=== PATIENT | male | born 1940 | race Caucasian/White ===

== ENCOUNTER 2024-01-02 12:14 | Inpatient (IN) | payer MEDICARE, BC, SELFPAY ==
[2024-01-01 20:12] VITALS: BP 147/78
[2024-01-01 20:14] VITALS: BP 147/78
[2024-01-01 20:16] VITALS: BMI 26.7
[2024-01-01 20:54] LABS: COVID-19 Antigen Positive (Negative)
--- NOTE | 2024-01-01 21:14 | ED.GENMED ---
History of Present Illness
General
Chief Complaint: Change Level of Consciousness
Source: patient
Exam Limitations: none
Time Seen by Provider: 01/01/24 20:12
Nursing documentation reviewed up to this point in time: agreed with
Travel History
Have you had any contact with someone who has COVID-19?: No
Do you have any symptoms of coronavirus? Fever > 100 degrees, chills, cough, shortness of breath, sore throat, loss of taste or smell, muscle aches, or headache?: Yes
Symptoms:: fever
History of Present Illness
History of Present Illness:
83-year-old male with past medical history as documented notable for dementia presents with his family for evaluation of generalized weakness. It sounds like he was in his normal state of health even this morning, as the day went on family noticed
increasing weakness and shakiness. Tonight they tried to stand him up and he was not strong enough to support himself with his legs�could not take more than 1 step on his own before requiring significant support. This is quite atypical, normally
he is able to ambulate quite well with walker. He was brought to the emergency room by EMS for evaluation. Patient is very limited as a historian due to his dementia�when asked why he is here he says 'I am not sure.' When asked if he has any
complaints he says 'I feel okay.' His family says they have not noticed any coughing or respiratory issues, vomiting or diarrhea, fevers or any other issues at home. He was however noted to have a low-grade fever here.
Past History
Past History
ED Past Medical History: CAD, HTN, Hypercholesterolemia and Other (Bowel obstruction, Sensory Tremors)
ED Past Surgical History: Appendectomy and Cardiac (Cardiac stents)
Social History
Tobacco: Former smoker
Alcohol: None
Drug: None
Personal:
Living: with family
Employment: Employed
Review of Systems
Review of Systems
Unable to obtain full review of systems at this time due to: dementia
All Other Systems: Not applicable
Phy Exam
Physical Exam
Physical Exam:
General: Awake, alert, hard of hearing
Head: Normocephalic, atraumatic
Eyes: Conjunctiva normal, pupils equal round and reactive to light bilaterally
Throat: Airway intact, slightly dry mucous membranes
Neck: Trachea midline, supple without meningismus
Lungs: Clear to auscultation bilaterally, no wheezing, rales, rhonchi
Heart: Regular rate and rhythm, no murmurs, gallops, or rubs appreciated
Abd: Soft, non distended, nontender
Neuro: Cranial nerves grossly intact, speech fluid; generally weak but no focal weakness or numbness on exam
Skin: no rash
Extremities: No edema in extremities, equal pulses in all extremities
Scores
Heart Failure Risk
Heart Failure Risk Score: Not Applicable
Heart Score for Chest Pain Patients
STEMI patient?: Not applicable
Withdrawal Assessment of Alcohol
Withdrawal Assessment Completed?: Not applicable
Course
Orders/Labs/Results
Orders:
Orders
01/01/24 20:10
Electrocardiogram (*1) Urgent
Reason for Study: Other
Other Reason for Exam: Possible Sepsis
Urinalysis Reflex To Culture Urgent
Date Specimen was Collected: 01/01/24
Time Specimen was Collected: 20:11
O2 Therapy [RESP] Urgent
Titrate/Wean O2 to maintain O2 sat greater than (%): 93
Special Instructions: TO MAINTAIN CONTINUOUS O2 SATS > OR = 93%
Pulse Ox/cont/shift [RESP] Urgent
Quantity: 1
Special Instructions: CONTINUOUS
01/01/24 20:11
EKG- Treatment ONCE
01/01/24 20:38
COVID-19 Antigen Urgent
Source: Nasal Swab
Influenza A+B Rapid Molecular Urgent
VIBHA Source: Nasal Swab
Specimen Description:
01/01/24 20:58
Acetaminophen [Tylenol] 1,000 mg PO NOW STA
01/01/24 21:21
Case Management Consult ONCE
Case Management Consult: Discharge Planning
Pt Eval And Treat Urgent
Activity Level: With Assistance
01/01/24 21:28
Complete Blood Count/With Diff Urgent
Comprehensive Metabolic Panel Urgent
Lactic Acid Q4H
Comment: ON ICE, CANCEL 2ND ORDER IF FIRST LACTIC ACID LEVEL <2
Blood Culture Q30M
VIBHA Source: Blood/Venous
Specimen Description:
Comment: FROM 2 SEPARATE SITES
Blood Culture Q30M
VIBHA Source: Blood/Venous
Specimen Description:
Comment: FROM 2 SEPARATE SITES
01/01/24 22:54
CR Chest - 2 Views Urgent
Comment:
Reason For Exam: weakness, COVID+
Abnormal Lab Results
01/01/24 01/01/24
20:38 21:28
MCH 32.2 H pg
(27.0-31.0)
Absolute Lymphs (auto) 0.5 L 10^3/uL
(1.2-3.4)
Absolute Monos (auto) 0.9 H 10^3/uL
(0.1-0.6)
Neutrophils % 80.1 H %
(42.2-75.2)
Lymphocytes % 6.0 L %
(20.5-51.1)
Monocytes % 11.8 H %
(1.7-9.3)
BUN 22 H mg/dl
(9-20)
Glucose 110 H mg/dl
(70-99)
SARS-CoV-2 Antigen Positive A
(Negative)
01/01/24 21:28
01/01/24 21:28
Vital Signs
Initial and Last Documented VS:
Initial Vital Signs
Temp Pulse Resp BP Pulse Ox
38.6 C H 93 18 147/78 96
01/01/24 20:12 01/01/24 20:12 01/01/24 20:12 01/01/24 20:12 01/01/24 20:12
Last Documented Vital Signs
Temp Pulse Resp BP Pulse Ox
36.9 C 93 20 131/71 92
01/01/24 22:31 01/01/24 22:30 01/01/24 22:30 01/01/24 22:00 01/01/24 22:30
MDM/Problems Addressed
Differential Diagnosis Includes:
Concerned with his fever and generalized weakness would be for infection�differential includes UTI, pneumonia, viral syndrome
MDM/Problems Addressed:
83-year-old male presents for generalized weakness and shakiness today; found to have a low-grade fever here. Vital signs otherwise normal. Exam as above. Plan to place an IV check labs including a CBC and a CMP, urinalysis; send blood cultures.
Will check viral swabs. Check a chest x-ray. Check an EKG. Treat fever. Monitor closely reassess after the above.
Patient's COVID swab came back positive which certainly could account for his symptoms. Awaiting rest of workup. While from a respiratory perspective patient appears generally well, he may require admission from a functional standpoint�he lives at
home alone with his who ambulates only with a cane and is not able to support him to help him get around.
Labs reviewed: CBC unremarkable, CMP no significant abnormalities. Family very concerned about his functional status at this point will admit for hopefully placement in short-term rehab/SNF while dealing with his acute functional decline in the
setting of COVID. Consult sent for physical therapy and case management. Discussed with hospitalist for admission.
Chronic conditions affecting care:
Dementia
*Radiology
Radiology exam reviewed: preliminary read by ED provider and radiology read reviewed
*Pulse Oximetry
Patient hypoxic: no
*EKG
Interpreted by ED Provider?: Yes
Heart Rate: 87
Rate: normal
Rhythm: sinus
[place]: normal axis
Interval: normal interval
QRS Pattern: normal QRS
Ischemia: no ischemia
*Critical Care Note
Total Time (30-74mins, 75-104mins- exclusive of procedures): Not Applicable
Data Reviewed
Source: patient and family
Patient Management
Social determinants of health affecting care: Living situation
Discussion with other providers: Hospitalist (Discussed with hospitalist)
Escalation/DeEscalation of care consider admission/obs:
Admission indicated
ED Attending Note
-
Portions of this chart may have been created with voice recognition software.� Occasional wrong word or��sound alike� substitutions may have occurred due to the inherent limitations of voice recognition software.
Discharge Plan
Departure
Patient Disposition: Admit
Date of Disposition: 01/01/24
Time of Disposition: 23:11
Admit to doctor: Bert
Presentation/result/management discussed w/ accepting MD/DO: Hospitalist
Discharge Problem:
COVID-19
Prescriptions:
No Action
aspirin 81 MG tablet,delayed release (DR/EC)
81 mg PO HS
atorvastatin 40 MG tablet
40 mg PO HS
ascorbic acid (vitamin C) [Vitamin C] 1,000 MG tablet
1,000 mg PO BID
memantine 10 MG tablet
10 mg PO BID
cholecalciferol (vitamin D3) 2,000 UNITS tablet
2,000 units PO DAILY
pantoprazole 40 MG tablet,delayed release (DR/EC)
40 mg PO BID 28 Days Qty: 56 0RF
Rx Instructions:
take twice a day for 4 weeks, then once a day
multivitamin Tablet
1 tab PO DAILY
zinc acetate 50 mg (zinc) Capsule
50 mg PO DAILY
acetaminophen [Tylenol] 325 mg Tablet
650 mg PO Q6H PRN (Reason: fever, mild pain)
donepezil 10 mg Tablet
10 mg PO DAILY
Referrals:
Johny Fernandez MD [Family Provider] -
Interventions
Interventions:
*Risk Screen - Suicide Last Done: 01/01/24 20:12
*General Assessment Last Done: 01/01/24 20:12
*Neglect/Abuse Screening Last Done: 01/01/24 20:12
ED- Fall Risk Assessment Last Done: 01/01/24 20:39
*ED COVID-19 Vaccine History Last Done: 01/01/24 20:12
ED- Cardiac Assessment Last Done: 01/01/24 20:39
ED- Neurological Assessment Last Done: 01/01/24 20:39
ED-Psychological Assessment Last Done: 01/01/24 20:41
ED- Pulmonary Assessment Last Done: 01/01/24 20:39
[2024-01-01] MEDS: TYLENOL 1000 MG PO (21:23)
[2024-01-01 21:29] VITALS: BP 142/66
[2024-01-01 21:43] LABS: % Basophils 0.9 % (0-2); % Eosinophils 0.8 % (0-6); % Immature Granulocytes 0.4 % (0-0.5); % Monocytes 11.8 % (1.7-9.3); % Neutrophils 80.1 % (42.2-75.2); Absolute Basophils 0.1 10^3/uL (0-0.2); Absolute Eosinophils 0.1 10^3/uL (0-0.7); Absolute Lymphocytes 0.5 10^3/uL (1.2-3.4); Absolute Monocytes 0.9 10^3/uL (0.1-0.6); Absolute Neutrophils 6.4 10^3/uL (1.4-6.5); Hematocrit 45.8 % (39.0-52.0); Hemoglobin 15.7 g/dL (13.0-18.0); Mean Corp Hgb Conc. 34.3 g/dL (33.0-37.0); Mean Corpuscular Hgb 32.2 pg (27.0-31.0); Mean Corpuscular Volume 93.9 fL (80.0-94.0); Mean Platelet Volume 9.3 fL (7.4-10.4); Nucleated Red Blood Cells % 0 % (-); Platelet Count 166 10^3/uL (130-400); Red Blood Cell Count 4.88 10^6/uL (4.70-6.10); Red Cell Dist. Width 13.9 % (11.5-14.5)
[2024-01-01 21:56] LABS: Lactic Acid 1.2 mmol/L (0.7-2.0)
[2024-01-01 21:59] LABS: ALT (SGPT) 31 U/L (0-50); AST (SGOT) 29 U/L (17-59); Albumin 4.3 g/dl (3.5-5.0); Alkaline Phosphatase 90 U/L (38-126); Blood Urea Nitrogen 22 mg/dl (9-20); Calcium 9.3 mg/dl (8.4-10.2); Carbon Dioxide 28 mmol/L (22-30); Chloride 104 mmol/L (98-107); Estimated Creatinine Clearance 52 ml/min; Glucose 110 mg/dl (70-99); Sodium 136 mmol/L (135-145); Total Bilirubin 0.8 mg/dl (0.2-1.3); Total Protein 7.3 g/dl (6.3-8.2); eGFR 59.26
[2024-01-01 22:00] VITALS: BP 131/71
[2024-01-01 22:06] LABS: Potassium 4.8 mmol/L (3.5-5.1)
[2024-01-01 23:00] VITALS: BP 117/65
--- NOTE | 2024-01-01 23:23 | HPS.HSE ---
Family Physician
-
Family Physician: Johny Fernandez
Chief Complaint
-
weakness
History of Present Illness
83M [facility] with HX dementia, CAD, HTN seen art ER evaluation of generalized weakness. Family noticed increasing weakness and shakiness. Tonight he was not strong enough to support himself with his legs�could not take more than 1 step on his own
before requiring significant support. Normally he is able to ambulate quite well with walker.
Patient is very limited as a historian due to his dementia
family deneied coughing or respiratory issues, vomiting or diarrhea, fevers or any other issues at home.
low-grade fever at ER
Medical History
Past Medical History
Past Medical History: Reports Other (CAD, HTN, Hypercholesterolemia and Other (Bowel obstruction, Sensory Tremors))
Past Surgical History: Reports Other (Appendectomy and Cardiac (Cardiac stents))
Social History
Tobacco: Former Smoker
Alcohol: None
Personal:
Living: With Family
Family History
Family History: Not pertinent
Allergies / Home Medications
Allergies reflects when Allergies were last updated in [facility].
Home Medications with original date entered in [facility]
Allergy/Medication List:
Allergies
Allergy/AdvReac Type Severity Reaction Status Date / Time
venom-honey bee Allergy Swelling Verified 01/01/24 20:17
[bee venom (honey bee)]
Home Medications
aspirin 81 mg tablet,delayed release 81 mg PO HS Blood clot prevention/tx 08/05/14
ascorbic acid (vitamin C) 1,000 mg tablet (Vitamin C) 1,000 mg PO BID Supplement 05/15/22
atorvastatin 40 mg tablet 40 mg PO HS High cholesterol 05/15/22
cholecalciferol (vitamin D3) 50 mcg (2,000 unit) tablet 2,000 units PO DAILY Supplement 05/15/22
memantine 10 mg tablet 10 mg PO BID dementia 05/15/22
pantoprazole 40 mg tablet,delayed release 40 mg PO BID 28 days #56 tabs 05/19/22
multivitamin 1 tab PO DAILY Supplement 01/27/23
zinc acetate 50 mg (zinc) capsule 50 mg PO DAILY Supplement 01/27/23
acetaminophen 325 mg tablet (Tylenol) 650 mg PO Q6H PRN fever, mild pain 01/01/24
donepezil 10 mg tablet 10 mg PO DAILY 01/01/24
Review of Systems
-
EENT: Reports No Symptoms
Respiratory: Reports No Symptoms
Cardiac: Reports No Symptoms
Abdomen/GI: Reports No Symptoms
: Reports No Symptoms
Musculoskeletal: Reports No Symptoms
Skin: Reports No Symptoms
Neurological: Reports Weakness
Endocrine: Reports No Symptoms
Hematologic/Lymphatic: Reports No Symptoms
Psych: Reports No Symptoms
Physical Exam
Vital Signs
Vital Signs
Temp Pulse Resp BP Pulse Ox
98.5 F 93 20 131/71 92
01/01/24 22:31 01/01/24 22:30 01/01/24 22:30 01/01/24 22:00 01/01/24 22:30
Physical Exam
General: Other (see below )
Laboratory Results
-
01/01/24 21:28
01/01/24 21:28
Laboratory Results
Lactic Acid 1.2 mmol/L (0.7-2.0) 01/01/24 21:28
Total Bilirubin 0.8 mg/dl (0.2-1.3) 01/01/24 21:28
AST 29 U/L (17-59) 01/01/24 21:28
ALT 31 U/L (0-50) 01/01/24 21:28
Alkaline Phosphatase 90 U/L (38-126) 01/01/24 21:28
Data Reviewed
-
Lab Data: Labs Reviewed by me
Old Records: Reviewed
Impression/Plan
-
Reviewed VS: note POX as low as 91 on RA
PE
Gen: Alert , no toxic looking
HEENT: very [place]
Neck: supple
Lungs: Clear to auscultation bilaterally, no wheezing
Cor: RRR S1 S2
Abdomen: soft beningn exam
CRYSTALIZER: generally weak but no focal weakness or numbness
MS: no edema
Psych: limited due to dementia
Data
nl CBC
BUN 22
Cr 1.2 - baseline Cr < 1
eGFR 59
Pending UA
POS Covid Ag
Pending CXR
EKG report
NORMAL SINUS RHYTHM
POSSIBLE INFERIOR INFARCT , AGE UNDETERMINED
ABNORMAL ECG
WHEN COMPARED WITH ECG OF 27-JAN-2023 21:49,
NO SIGNIFICANT CHANGE WAS FOUND
Last Hospitalist admission 01/28/23-
DISCHARGE DIAGNOSIS:
1. Fever, suspected from acute sinusitis.
2. Coronary artery disease.
3. Hyperlipidemia.
4. Hypertension.
5. Dementia.
6. Gastroesophageal reflux disease.
ASSESSMENT & PLAN
Acute virla Covid infection - unclear consent
Associated with acute gait dysfunction due to severe weakness and debility
marginal hypoxia - Pending CXR
- O2 NC to keep POx > 94
- Paxolovid
- IV Decadron 6mg daily
- PT/OT
- supportive care
Mild PRANAV
- IV NS@ 40?H for just 1 L
- Trend Cr in AM
HLD
- Held Atorvastatin while on Paxlovid
- ASA
Dementia
- cont. Memantine and Donepezil
DVT Px: LMWH
Code: Full code
OBS MS
[2024-01-02] VITALS: BP 126/65
[2024-01-02 00:50] VITALS: BP 128/67; BMI 25.6
[2024-01-02] MEDS: PAXLOVID 2X150 MG-100 MG DOSE PACK 1 DOSE PO ×3 (01:37→21:51)
[2024-01-02] MEDS: NSS 1000 IV (01:37)
[2024-01-02 07:35] VITALS: BP 177/98
[2024-01-02] MEDS: PROTONIX 40 MG PO ×2 (10:04→20:20)
[2024-01-02] MEDS: MUCINEX 600 MG PO ×2 (10:04→20:20)
[2024-01-02] MEDS: NAMENDA 10 MG PO ×2 (10:05→20:20)
[2024-01-02] MEDS: ARICEPT 10 MG PO (10:05)
[2024-01-02] MEDS: DECADRON 6 MG IV (10:05)
[2024-01-02] MEDS: FLUSH (NSS) 2 FLUSH IV (10:07)
--- NOTE | 2024-01-02 10:21 | W.PN.HOSP.TC ---
Today's Communication/Plan
-
cont PT/OT
finish Paxlovid
cont decadron
Assessment / Plan
Assessment / Plan
pt is an 83 year old male
Acute viral Covid infection - unclear onset--Associated with acute gait dysfunction�due to severe weakness�and debility--not requiring O2 (93-94% on room air)--finish paxlovid--cont IV decadron--PT/OT
Mild PRANAV--stop IVF--no labs ordered for this AM--follow in AM
HLD-- Held Atorvastatin while on Paxlovid--cont ASA
Dementia- cont. Memantine and Donepezil
code status -- FULL Code
DVT proph
Anticipated Discharge: 24 - 48 hours
Subjective/Interval History
-
Date of Service: January 02, 2024
pt denies c/o
Objective Data
-
Vital Signs:
max temp for 24 hours
01/01/24
20:12
Temp 101.5 F H
Vital Signs
Temp Pulse Resp BP Pulse Ox
100.7 F H 92 18 177/98 93
01/02/24 07:35 01/02/24 07:35 01/02/24 07:35 01/02/24 07:35 01/02/24 07:35
I&O
01/01/24 01/02/24 01/03/24
06:59 06:59 06:59
Output Total 225 / 225
Balance -225 / -225
Review of Systems
-
Unable to obtain full review of systems at this time due to: Dementia
All other systems: Reviewed and negative
Physical Exam
-
General: Well Developed, Well Nourished and No Apparent Distress
HEENT: Normocephalic and Atraumatic; Negative Oxygen
Respiratory: Rhonchi (anterior right chest)
Cardiac: Regular Rhythm and S1/S2; Negative Murmur
GI: Soft, Nontender, Nondistended and Normal Bowel Sounds
Musculoskeletal: No Clubbing, No Cyanosis and No Edema
Skin: Warm
Neuro: Awake
[2024-01-02 14:20] VITALS: BP 125/88; BP 125/90; PULSE 90; O2SAT 93
--- NOTE | 2024-01-02 15:05 | CM ---
customer development manager reviewed patient's chart and spoke with patient's spouse by phone, patient is currently requiring isolation. Patient has switched to inpatient, IMM discussed with patient's spouse at 2:30pm and placed on chart. Per patient's spouse,
patient lives in a one story home with one step to enter, patient was independent with adl's and used a walker with ambulation. Per spouse patient was not very active at home, watched TV most of the time. customer development manager informed patient's spouse that
she would wait on PT/OT evaluations for final discharge plan. Per spouse she is for possible spinal surgery in a week and patient needs to be able to get around at home.
Pharmacy: [facility]
PCP: Dr. Hayder Fernandez
Plan; Home with visiting nurses v's skilled placement at [facility], referral sent to [facility].
[2024-01-02 15:26] VITALS: BP 118/60
[2024-01-02] MEDS: LOVENOX 40 MG SC (20:20)
[2024-01-02] MEDS: ASPIR LOW (ENTERIC COATED) 81 MG PO (21:51)
[2024-01-02 23:45] VITALS: BP 136/75
[2024-01-03] MEDS: ROBITUSSIN DM 5 ML PO ×2 (00:05→09:02)
--- NOTE | 2024-01-03 01:11 | PTCARENOTE ---
Pt on the call mckeon, states he pulled out his IV because 'it was bothering him and pinching' and reports he needs a new one. Pt ordered medsurg, not receiving IVF or ordered any IV medications currently, d/w covering GM, pt okay to go without IV
access for now.
[2024-01-03 06:33] LABS: Hematocrit 41.8 % (39.0-52.0); Hemoglobin 14.7 g/dL (13.0-18.0); Mean Corp Hgb Conc. 35.2 g/dL (33.0-37.0); Mean Corpuscular Hgb 32.4 pg (27.0-31.0); Mean Corpuscular Volume 92.1 fL (80.0-94.0); Mean Platelet Volume 9.4 fL (7.4-10.4); Platelet Count 144 10^3/uL (130-400); Red Blood Cell Count 4.54 10^6/uL (4.70-6.10); Red Cell Dist. Width 13.6 % (11.5-14.5); White Blood Cell Count 9.7 10^3/uL (4.8-10.8)
[2024-01-03 06:56] LABS: Blood Urea Nitrogen 24 mg/dl (9-20); Calcium 8.7 mg/dl (8.4-10.2); Carbon Dioxide 25 mmol/L (22-30); Chloride 102 mmol/L (98-107); Estimated Creatinine Clearance 70 ml/min; Glucose 124 mg/dl (70-99); Magnesium 2.2 mg/dl (1.6-2.3); Potassium 4.5 mmol/L (3.5-5.1); Sodium 134 mmol/L (135-145); eGFR > 60.00
[2024-01-03 07:35] VITALS: BP 141/73
[2024-01-03] MEDS: PROTONIX 40 MG PO ×2 (09:02→21:12)
[2024-01-03] MEDS: ARICEPT 10 MG PO (09:02)
[2024-01-03] MEDS: MUCINEX 600 MG PO ×2 (09:02→21:08)
[2024-01-03] MEDS: DECADRON 6 MG IV (09:02)
[2024-01-03] MEDS: NAMENDA 10 MG PO ×2 (09:02→21:12)
[2024-01-03] MEDS: PAXLOVID 2X150 MG-100 MG DOSE PACK 1 DOSE PO ×2 (09:22→21:08)
[2024-01-03 11:08] VITALS: BP 138/78; PULSE 66; O2SAT 92
[2024-01-03 11:10] VITALS: BP 138/78; PULSE 66; O2SAT 92
--- NOTE | 2024-01-03 11:17 | W.PN.HOSP.TC ---
Today's Communication/Plan
-
DC planning
Assessment / Plan
Assessment / Plan
pt is an 83 year old male
Acute viral Covid infection - unclear onset--Associated with acute gait dysfunction�due to severe weakness�and debility--not requiring O2 (93-94% on room air)-afeb todya-cxr no pneumonia - no active reactive airways -finish paxlovid-- DC steorids
Mild PRANAV- Cr 1.2 admission - improved to 0.9 with fluids. Patient without any nausea vomiting and tolerating diet. DC further IV fluids.
HLD-- Held Atorvastatin while on Paxlovid--cont ASA
Dementia- cont. Memantine and Donepezil
code status -- FULL Code
Medically stable for DC
But PT recommends rehab
Patient agreeable.
Case management to look into disposition.
DVT proph
Anticipated Discharge: Today
Subjective/Interval History
-
Date of Service: January 03, 2024
He think he came to ER because he had a fall in the bathroom.
On admission it was noted his main complaint was weakness, shakiness and was not doing well on the walker.No mention of fall .
He has a history of dementia.
He complains of sore throat and dry cough but no shortness of breath or chest pain.
No nausea vomiting.
No fever or chills.
Objective Data
-
Labs:
Laboratory Results
01/03/24
06:11
WBC 9.7
Hgb 14.7
Hct 41.8
Plt Count 144
Sodium 134 L
Potassium 4.5
Chloride 102
Carbon Dioxide 25
BUN 24 H
Creatinine 0.9
Glucose 124 H
Calcium 8.7
Vital Signs:
Vital Signs
Temp Pulse Resp BP Pulse Ox
97.8 F 62 18 141/73 93
01/03/24 07:35 01/03/24 07:35 01/03/24 07:35 01/03/24 07:35 01/03/24 07:35
I&O
01/02/24 01/03/24 01/04/24
06:59 06:59 06:59
Intake Total 840 / 840
Output Total 225 / 225
Balance 615 / 615
Review of Systems
-
Unable to obtain full review of systems at this time due to: Dementia
Physical Exam
-
General: No Apparent Distress
HEENT: Moist Mucous Membranes
Respiratory: Clear to Auscultation; Negative Wheezes or Crackles
Cardiac: Regular Rhythm and S1/S2; Negative Tachycardic
GI: Soft
Neuro: Awake, Alert and Oriented (place and person)
Psych: Calm; Negative Agitated
[2024-01-03 15:25] VITALS: BP 137/71
--- NOTE | 2024-01-03 15:33 | CM ---
Reviewed the chart notes and spoke with the patient's spouse in family lounge. The patient's spouse is hoping the patient get strong enough over the next couple of days to be able to discharge to home with VN services. Per spouse, she was
scheduled for spinal stenosis surgery with a [facility] neurosurgeon for next week, but due to the spouse having Covid will now need to push off until Covid negative testing for additional 10 days. CM continues to be available to patient/family and is
monitoring medical plan for needs at discharge.
Plan: Discharge plans will depend on the patient's progress.
[2024-01-03] MEDS: LOVENOX 40 MG SC (21:07)
[2024-01-03] MEDS: ASPIR LOW (ENTERIC COATED) 81 MG PO (21:13)
[2024-01-03 23:24] VITALS: BP 151/78
[2024-01-04 08:00] VITALS: BP 134/77
--- NOTE | 2024-01-04 09:51 | W.PN.HOSP.TC ---
Today's Communication/Plan
-
Ongoing disposition efforts
Assessment / Plan
Assessment / Plan
pt is an 83 year old male
Acute viral Covid infection - unclear onset--Associated with acute gait dysfunction�due to severe weakness�and debility--not requiring O2 (93-94% on room air)-afeb -cxr no pneumonia - no active reactive airways -finish paxlovid--no indication for
further steroids
Mild PRANAV- Cr 1.2 admission - improved to 0.9 with fluids. Patient without any nausea vomiting and tolerating diet.
HLD-- Held Atorvastatin while on Paxlovid--cont ASA
Dementia- cont. Memantine and Donepezil
code status -- FULL Code
Medically stable for DC
PT recommends rehab
Discussed with case management-ongoing disposition efforts.
DVT proph
Anticipated Discharge: Within 24 hours
Subjective/Interval History
-
Date of Service: January 04, 2024
No overnight events
Denies shortness of breath. No nausea vomiting. No chest pain.
Objective Data
-
Vital Signs:
Vital Signs
Temp Pulse Resp BP Pulse Ox
97.3 F 63 17 134/77 93
01/04/24 08:00 01/04/24 08:00 01/04/24 08:00 01/04/24 08:00 01/04/24 08:00
I&O
01/03/24 01/04/24 01/05/24
06:59 06:59 06:59
Intake Total 840 / 840 1679 / 1680
Output Total 225 / 225
Balance 615 / 615 1679 / 1679
Review of Systems
-
Unable to obtain full review of systems at this time due to: Dementia
Constitutional: Reports Other (Complains of some hiccups but not noted during my visit; he says he had a good night without hiccups); Denies Fever or Chills
Respiratory: Reports Cough; Denies Trouble Breathing
Cardiac: Denies Chest Pain
Abdomen/GI: Denies Abdominal Pain, Nausea or Vomiting
Neuro: Denies Dizzy
Physical Exam
-
General: No Apparent Distress
HEENT: Moist Mucous Membranes
Respiratory: Clear to Auscultation
Cardiac: Regular Rhythm and S1/S2
GI: Soft
Neuro: Awake, Alert and Oriented (Place and person)
Psych: Calm
[2024-01-04] MEDS: ARICEPT 10 MG PO (09:53)
[2024-01-04] MEDS: MUCINEX 600 MG PO ×2 (09:54→21:50)
[2024-01-04] MEDS: PAXLOVID 2X150 MG-100 MG DOSE PACK 1 DOSE PO ×2 (09:54→21:49)
[2024-01-04] MEDS: NAMENDA 10 MG PO ×2 (09:55→21:51)
[2024-01-04] MEDS: PROTONIX 40 MG PO ×2 (09:56→21:49)
[2024-01-04 16:00] VITALS: BP 150/73
[2024-01-04] MEDS: LOVENOX 40 MG SC (21:48)
[2024-01-04] MEDS: ASPIR LOW (ENTERIC COATED) 81 MG PO (21:53)
[2024-01-04 23:25] VITALS: BP 134/77
--- NOTE | 2024-01-05 08:18 | W.PN.HOSP.TC ---
Today's Communication/Plan
-
DC
Assessment / Plan
Assessment / Plan
pt is an 83 year old male
Acute viral Covid infection - unclear onset--Associated with acute gait dysfunction�due to severe weakness�and debility--not requiring O2 -remains afeb -cxr no pneumonia - no active reactive airways -finish paxlovid--no indication for further
steroids
Mild PRANAV- Cr 1.2 admission - improved to 0.9 with fluids. Patient without any nausea vomiting and tolerating diet.
HLD-- Held Atorvastatin while on Paxlovid--cont ASA
Dementia- cont. Memantine and Donepezil
code status -- FULL Code
Medically stable for DC
PT now recommends home health
DVT proph
Anticipated Discharge: Today
Subjective/Interval History
-
Date of Service: January 05, 2024
Slept ok
Denies SOB
No fever
No cough/sorethroat
Did better with PT yesterday and ok now for home health
Objective Data
-
Vital Signs:
Vital Signs
Temp Pulse Resp BP Pulse Ox
97.3 F 64 18 134/77 94
01/04/24 23:25 01/04/24 23:25 01/04/24 23:25 01/04/24 23:25 01/05/24 05:20
I&O
01/04/24 01/05/24 01/06/24
06:59 06:59 06:59
Intake Total 1680 / 1680 1440 / 1440
Balance 1680 / 1680 1440 / 1440
Review of Systems
-
Constitutional: Denies Fever
EENT: Denies Sore Throat
Respiratory: Denies Cough or Trouble Breathing
Cardiac: Denies Chest Pain
Abdomen/GI: Denies Abdominal Pain, Nausea or Vomiting
Neuro: Denies Dizzy
Physical Exam
-
General: No Apparent Distress
HEENT: Moist Mucous Membranes
Respiratory: Clear to Auscultation
Cardiac: Regular Rhythm and S1/S2; Negative Tachycardic
Neuro: AO x 3
Psych: Calm
[2024-01-05 08:20] VITALS: BP 175/91
--- NOTE | 2024-01-05 08:26 | W.DS.TRANS ---
DC Summary - Ripening Room Hand
-
Discharge Instructions:
Discharge Diagnosis/Procedures COVID-19 infection without hypoxia or pneumonia;
weakness secondary to COVID-19 infection
Diet Regular
Activity As tolerated
Driving Restrictions As prior to admission
Other Services VN,PT
Instructions:
Stand-Alone Forms:
Changes to Home Medications: Yes
Discharge Medications:
DC Medications w/original date entered in [facility]
aspirin 81 mg tablet,delayed release 81 mg PO HS Blood clot prevention/tx 08/05/14
ascorbic acid (vitamin C) 1,000 mg tablet (Vitamin C) 1,000 mg PO BID Supplement 05/15/22
atorvastatin 40 mg tablet 40 mg PO HS High cholesterol 05/15/22
cholecalciferol (vitamin D3) 50 mcg (2,000 unit) tablet 2,000 units PO DAILY Supplement 05/15/22
memantine 10 mg tablet 10 mg PO BID dementia 05/15/22
pantoprazole 40 mg tablet,delayed release 40 mg PO BID 28 days #56 tabs 05/19/22
multivitamin 1 tab PO DAILY Supplement 01/27/23
zinc acetate 50 mg (zinc) capsule 50 mg PO DAILY Supplement 01/27/23
acetaminophen 325 mg tablet (Tylenol) 650 mg PO Q6H PRN fever, mild pain 01/01/24
donepezil 10 mg tablet 10 mg PO DAILY dementia 01/01/24
acetaminophen 325 mg tablet 650 mg PO Q4HPRN PRN fever >/= 100.4F, SIMON,mild pain #1 tab 01/05/24
dextromethorphan-guaifenesin 10 mg-100 mg/5 mL oral syrup 5 ml PO Q6HPRN PRN cough #1 mL 01/05/24
nirmatrelvir 300 mg (150 mg x2)-ritonavir 100 mg tablet,dose pack (Paxlovid) See Rx Instructions PO .COMPLEX #6 ea 01/05/24
Home Medication Changes
Medication-Paxlovid for 2 more days
Hold medication-statin while on Paxlovid
Pending Results: No
--- NOTE | 2024-01-05 08:27 | W.DCSUMMARY ---
Discharge Summary
Discharge Data
Date of Admission: 01/02/24
Date of Discharge: 01/05/24
-
Pending Results: No
Hospital Course
Primary diagnosis:
COVID-19 infection
Mild acute kidney injury
Secondary diagnosis:
Dementia
Hyperlipidemia
Hospital course:
83-year-old gentleman presented for generalized weakness. He was doing okay but on the day of admission, family noticed increasing weakness and shakiness. They tried to make him stand up and he was not strong enough to support himself. Normally
ambulates well with a walker. He was brought to the ER. Further evaluation here reveals COVID-19 infection. Nonfocal neurologically. Chest x-ray showed no evidence of pneumonia. Was not requiring oxygen. He was treated with Paxlovid. His
fevers resolved. He also had mild PRANAV with creatinine up to 1.9 which improved with fluids down to baseline 0.9. With fluids and resolution of fevers his functional status improved he was seen by PT and recommended home health and he was
discharged home today.
To hold statins while he is on Paxlovid.
Discharge Plan
-
Patient Disposition: Home with Home Care
Discharge Diagnosis/Procedures: COVID-19 infection without hypoxia or pneumonia; weakness secondary to COVID-19 infection
Condition: Fair
Diet: Regular
Activity: As tolerated
Driving Restrictions: As prior to admission
Other Services: VN and PT
Referrals:
Johny Fernandez MD [Family Provider] - in less than 1 week
Prescriptions:
New
dextromethorphan-guaifenesin 10-100 mg/5 mL Syrup
5 ml PO Q6HPRN PRN (Reason: cough) Qty: 1 0RF
Rx Instructions:
buy OTC
acetaminophen 325 mg Tablet
650 mg PO Q4HPRN PRN (Reason: fever >/= 100.4F, SIMON,mild pain) Qty: 1 0RF
Paxlovid 300 mg (150 mg x 2)-100 mg tablets,dose pack
See Rx Instructions .ROUTE .COMPLEX Qty: 6 0RF
Rx Instructions:
take TWO 150 mg tablets of nirmatrelvir with ONE 100 mg tablet of ritonavir twice daily for 2 MORE days
Continued
aspirin 81 MG tablet,delayed release (DR/EC)
81 mg PO HS
ascorbic acid (vitamin C) [Vitamin C] 1,000 MG tablet
1,000 mg PO BID
memantine 10 MG tablet
10 mg PO BID
cholecalciferol (vitamin D3) 2,000 UNITS tablet
2,000 units PO DAILY
pantoprazole 40 MG tablet,delayed release (DR/EC)
40 mg PO BID 28 Days Qty: 56 0RF
Rx Instructions:
take twice a day for 4 weeks, then once a day
multivitamin Tablet
1 tab PO DAILY
zinc acetate 50 mg (zinc) Capsule
50 mg PO DAILY
acetaminophen [Tylenol] 325 mg Tablet
650 mg PO Q6H PRN (Reason: fever, mild pain)
donepezil 10 mg Tablet
10 mg PO DAILY
Held
atorvastatin 40 MG tablet
40 mg PO HS
Hold Instructions: Resume on 01/09/24. resume next week
Discharge Orders:
Discharge Patient (As Directed); Ordered 01/05/24
Ordered By: Ba Khanna
--- NOTE | 2024-01-05 08:54 | CM ---
Reviewed the chart notes and spoke with the patient's spouse via telephone. IMM explained and place on chart. Patient is Covid +. The patient is being discharged today to home with [facility]. Patient's spouse will provide transportation. CM
continues to be available to patient/family and is monitoring medical plan for needs at discharge.
Plan: Discharge to home today with VN services.
[2024-01-05] MEDS: NAMENDA 10 MG PO (09:50)
[2024-01-05] MEDS: ARICEPT 10 MG PO (09:50)
[2024-01-05] MEDS: PROTONIX 40 MG PO (09:50)
[2024-01-05] MEDS: MUCINEX 600 MG PO (09:50)
[2024-01-05] MEDS: PAXLOVID 2X150 MG-100 MG DOSE PACK 1 DOSE PO (09:55)
[2024-01-05 10:02] VITALS: BP 162/93
[2024-01-05 15:10] VITALS: BP 167/83
--- NOTE | 2024-01-05 15:31 | PTCARENOTE ---
Patient discharged home with VN and PT. This RN reviewed patient's discharge instructions and medications with patient; patient verbalized understanding. No IV access or telemetry pack on patient. Patient dressed and belongings gathered in room with
assistance of this RN. Spouse Afua made aware of discharge, transported patient home. Patient taken down to [facility] via staff escort and wheelchair.
== END 2024-01-05 15:31 | disposition home health service (06) | DRG 178 ==
LOC: 2 NORTH 12:14
PROVIDERS: Internal Medicine; ADMITTING PHYSICIAN Internal Medicine; ATTENDING PHYSICIAN Internal Medicine; EMERGENCY PHYSICIAN Emergency Medicine; FAMILY PHYSICIAN Internal Medicine
DX: U07.1 COVID-19 (principal); N17.9 Acute kidney failure, unspecified; I25.10 Atherosclerotic heart disease of native coronary artery without angina pectoris; I10 Essential (primary) hypertension; F03.90 Unspecified dementia, unspecified severity, without behavioral disturbance, psychotic disturbance, mood disturbance, and anxiety; E78.00 Pure hypercholesterolemia, unspecified; Z87.891 Personal history of nicotine dependence; K21.9 Gastro-esophageal reflux disease without esophagitis
CPT/HCPCS: 71046; 80048; 80053; 83605; 83735; 85025; 85027; 87040; 87502; 87811; 93005; 94760; 97116; 97163; 97166; 97530; 97535; 99285

== ENCOUNTER 2024-01-24 14:44 | Inpatient (IN) | payer MEDICARE, BC, SELFPAY ==
[2024-01-24] VITALS (19 sets, daily range): BP systolic 104–184; BP diastolic 63–96; PULSE 70–74; BMI 25.7; BMI 29.0
--- NOTE | 2024-01-24 08:38 | ED.GENMED ---
History of Present Illness
General
Chief Complaint: Fall
Source: patient
Exam Limitations: none
Time Seen by Provider: 01/24/24 08:20
Travel History
Have you had any contact with someone who has COVID-19?: No
Do you have any symptoms of coronavirus? Fever > 100 degrees, chills, cough, shortness of breath, sore throat, loss of taste or smell, muscle aches, or headache?: No
History of Present Illness
History of Present Illness:
83-year-old male presents via EMS from home after a fall. He states he has balance issues and he lost his balance in the mud room. He denies to me any preceding dizziness chest pain or shortness of breath. He fell against the wall and crunched
his back up and hit his head. He notes pain between his shoulder blades. He notes a slight headache. He thinks he is on a blood thinner but medication list only includes aspirin in the way of blood thinning agents. He denies loss of conscious.
No nausea or vomiting. No other complaints at this time
Past History
Past History
ED Past Medical History: CAD, HTN, Hypercholesterolemia and Other (Bowel obstruction, Sensory Tremors)
ED Past Surgical History: Appendectomy and Cardiac (Cardiac stents)
Social History
Tobacco: Former smoker
Alcohol: None
Drug: None
Personal:
Living: with family
Employment: Employed
Phy Exam
Physical Exam
Physical Exam:
General: Well-appearing male no acute respiratory distress
HEENT: Normocephalic atraumatic pupils equal round nonreactive to light measuring 2 mm bilaterally
Heart: Regular rate and rhythm no murmurs
Lungs: Clear to auscultation bilaterally no wheezing
Musculoskeletal exam: Patient is nontender over the cervical spine but tender over the midportion of the thoracic spine lumbar spine nontender good range of motion all extremities
Abdomen: Soft nontender nondistended no guarding or rebound
Neurologic: Alert, no unilateral weakness.
Course
Orders/Labs/Results
Orders:
Orders
01/24/24 08:25
Electrocardiogram (*1) Urgent
Reason for Study: Syncope
01/24/24 08:26
EKG- Treatment ONCE
01/24/24 08:27
CMP [Comprehensive Metabolic Panel] Urgent
Complete Blood Count/With Diff Urgent
Troponin I Urgent
01/24/24 08:34
CT Cervical Spine W/o Iv Contr Urgent
Comment:
Reason For Exam: fall
CT Head W/o Iv Contrast Urgent
Comment:
Reason For Exam: fall
CT Thoracic Spine W/o Iv Contr Urgent
Comment:
Reason For Exam: fall
01/24/24 09:41
Orthostatic VS- Treatment ONCE
01/24/24 10:06
0.9% Sodium Chloride 1000 ml [Nss] 1,000 ml IV BOLUS
01/24/24 12:54
Acetaminophen [Tylenol] 650 mg PO NOW STA
Abnormal Lab Results
01/24/24
08:27
RBC 4.68 L 10^6/uL
(4.70-6.10)
MCH 31.8 H pg
(27.0-31.0)
Absolute Neuts (auto) 6.7 H 10^3/uL
(1.4-6.5)
Absolute Monos (auto) 0.8 H 10^3/uL
(0.1-0.6)
Lymphocytes % 19.0 L %
(20.5-51.1)
BUN 22 H mg/dl
(9-20)
Glucose 127 H mg/dl
(70-99)
01/24/24 08:27
01/24/24 08:27
Vital Signs
Initial and Last Documented VS:
Initial Vital Signs
Pulse Resp BP Pulse Ox
59 13 134/72 95
01/24/24 08:18 01/24/24 08:18 01/24/24 08:18 01/24/24 08:18
Last Documented Vital Signs
Temp Pulse Resp BP Pulse Ox
97.7 F 64 14 137/71 95
01/24/24 08:20 01/24/24 13:00 01/24/24 13:00 01/24/24 13:00 01/24/24 13:00
MDM/Problems Addressed
Differential Diagnosis Includes:
Fall. Patient has history of balance issues. He typically uses a walker. Will CAT scan head cervical spine and thoracic spine. Labs pending.
*Critical Care Note
Total Time (30-74mins, 75-104mins- exclusive of procedures): Not Applicable
Update Note
Update Note:
Patient reevaluated multiple times. CT of head cervical and thoracic spines were negative. Lab work reviewed without significant finding. Patient does tilt however upon orthostatic vital signs. He dropped even with sitting. Fluids started.
Patient has continued mid back pain. Tylenol ordered for this pain. But unsafe for discharge at this time. who lives with him does have a surgery as well.
ED Attending Note
-
Portions of this chart may have been created with voice recognition software.� Occasional wrong word or��sound alike� substitutions may have occurred due to the inherent limitations of voice recognition software.
Discharge Plan
Departure
Patient Disposition: Admit
Date of Disposition: 01/24/24
Time of Disposition: 13:33
Admit to: Telemetry
Presentation/result/management discussed w/ accepting MD/DO: Hospitalist
Discharge Problem:
Orthostatic hypotension, Fall
Prescriptions:
No Action
aspirin 81 MG tablet,delayed release (DR/EC)
81 mg PO HS
atorvastatin 40 MG tablet
40 mg PO HS
Hold Instructions: Resume on 01/09/24. resume next week
ascorbic acid (vitamin C) [Vitamin C] 1,000 MG tablet
1,000 mg PO BID
memantine 10 MG tablet
10 mg PO BID
cholecalciferol (vitamin D3) 2,000 UNITS tablet
2,000 units PO DAILY
pantoprazole 40 MG tablet,delayed release (DR/EC)
40 mg PO BID 28 Days Qty: 56 0RF
Rx Instructions:
take twice a day for 4 weeks, then once a day
multivitamin Tablet
1 tab PO DAILY
zinc acetate 50 mg (zinc) Capsule
50 mg PO DAILY
acetaminophen [Tylenol] 325 mg Tablet
650 mg PO Q6H PRN (Reason: fever, mild pain)
donepezil 10 mg Tablet
10 mg PO DAILY
dextromethorphan-guaifenesin 10-100 mg/5 mL Syrup
5 ml PO Q6HPRN PRN (Reason: cough) Qty: 1 0RF
Rx Instructions:
buy OTC
acetaminophen 325 mg Tablet
650 mg PO Q4HPRN PRN (Reason: fever >/= 100.4F, SIMON,mild pain) Qty: 1 0RF
Paxlovid 300 mg (150 mg x 2)-100 mg tablets,dose pack
See Rx Instructions .ROUTE .COMPLEX Qty: 6 0RF
Rx Instructions:
take TWO 150 mg tablets of nirmatrelvir with ONE 100 mg tablet of ritonavir twice daily for 2 MORE days
Referrals:
Johny Fernandez MD [Family Provider] -
Interventions
Interventions:
*Risk Screen - Suicide Last Done: 01/24/24 08:20
*General Assessment Last Done: 01/24/24 08:20
*Neglect/Abuse Screening Last Done: 01/24/24 08:20
*ED COVID-19 Vaccine History Last Done: 01/24/24 08:20
ED-Musculoskeletal Assessment Last Done: 01/24/24 08:20
ED- Neurological Assessment Last Done: 01/24/24 09:33
ED-Skin Assessment Last Done: 01/24/24 09:32
[2024-01-24 08:39] LABS: % Basophils 0.3 % (0-2); % Eosinophils 0.7 % (0-6); % Immature Granulocytes 0.4 % (0-0.5); % Monocytes 8.3 % (1.7-9.3); % Neutrophils 71.3 % (42.2-75.2); Absolute Eosinophils 0.1 10^3/uL (0-0.7); Absolute Lymphocytes 1.8 10^3/uL (1.2-3.4); Absolute Monocytes 0.8 10^3/uL (0.1-0.6); Absolute Neutrophils 6.7 10^3/uL (1.4-6.5); Hematocrit 43.7 % (39.0-52.0); Hemoglobin 14.9 g/dL (13.0-18.0); Mean Corp Hgb Conc. 34.1 g/dL (33.0-37.0); Mean Corpuscular Hgb 31.8 pg (27.0-31.0); Mean Corpuscular Volume 93.4 fL (80.0-94.0); Mean Platelet Volume 8.9 fL (7.4-10.4); Nucleated Red Blood Cells % 0 % (-); Platelet Count 176 10^3/uL (130-400); Red Blood Cell Count 4.68 10^6/uL (4.70-6.10); Red Cell Dist. Width 13.5 % (11.5-14.5); White Blood Cell Count 9.4 10^3/uL (4.8-10.8)
[2024-01-24 08:52] LABS: ALT (SGPT) 23 U/L (0-50); AST (SGOT) 30 U/L (17-59); Albumin 3.5 g/dl (3.5-5.0); Alkaline Phosphatase 110 U/L (38-126); Blood Urea Nitrogen 22 mg/dl (9-20); Calcium 9.4 mg/dl (8.4-10.2); Carbon Dioxide 29 mmol/L (22-30); Chloride 99 mmol/L (98-107); Estimated Creatinine Clearance 70 ml/min; Glucose 127 mg/dl (70-99); Potassium 4.4 mmol/L (3.5-5.1); Sodium 136 mmol/L (135-145); Total Protein 6.7 g/dl (6.3-8.2); eGFR > 60.00
[2024-01-24 09:03] LABS: Troponin I 0.013 ng/ml
[2024-01-24] MEDS: NSS 1000 IV ×2 (10:55→17:49)
[2024-01-24] MEDS: TYLENOL 650 MG PO (13:11)
--- NOTE | 2024-01-24 14:36 | HPS.HSE ---
Addendum entered and electronically signed by Lor Singh MD 01/24/24 15:17:
pt seen and examined independently--Agree with PA note
GENERAL: well developed, well nourished, male in no apparent distress
HEENT: NC/AT--no NC O2
HEART: regular rate and rhythm, +S1, +S2, no murmur noted
LUNGS : clear to auscultation bilaterally
ABDOM: soft, nontender, nondistended, + bowel sounds
EXT: no cyanosis, clubbing, or edema
NEUROLOGIC: grossly intact
Symptomatic Orthostatic Hypotension--pt NOT on any BP meds--likely due to PO intake through the day (pt states that he is up every 2 hours to sip on liquids due to a 'drip')--cont IVF--follow orthostatic VS--agree with teds--PT/OT
fall--pt came because he fell at home, imaging studies negative--lidocaine suzette patch, would avoid narcotics--found to be orthostatic and admitted for that--PT/OT
Coronary Artery Disease s/p Stents--Continue aspirin
Hyperlipidemia--Continue atorvastatin
Dementia, unknown type--Continue Namenda and Aricept--Monitor for mood/behavior changes during hospitalization
Depression--Continue Celexa (recently started by PCP)
BPH--Continue finasteride
DVT proph: SCDs
Code Status: Full Code
Original Note:
Family Physician
-
Family Physician: Johny Fernandez
Chief Complaint
-
Fall
History of Present Illness
Patient is an 83 y/o male past medical history of CAD, hypertension, dementia, depression and BPH who presents following a fall. Patient reports he went out to the garage to get some iced tea, and when he came back through the mud room he feel. He
reports when he tried to get up off the floor he passed out. He denies any dizziness prior to the original fall. He is currently complaining of pain between his shoulder blades. While in the emergency department patient was found to have
significant orthostasis upon sitting. at bedside notes he doesnt drink a lof fluids, and his appetite has been down since he had COVID a few weeks ago.
Medical History
Past Medical History
Past Medical History: Reports Other
Additional Past Medical History:
Coronary Artery Disease s/p Stents
Essential Hypertension
Hyperlipidemia
Dementia
Depression
BPH
Past Surgical History: Reports Other
Additional Past Surgical History:
Appendectomy
Cardiac Stents
Social History
Tobacco: Former Smoker
Alcohol: None
Personal:
Living: With Family
Family History
Family History: Not pertinent
Allergies / Home Medications
Allergies reflects when Allergies were last updated in [facility].
Home Medications with original date entered in [facility]
Allergy/Medication List:
Allergies
Allergy/AdvReac Type Severity Reaction Status Date / Time
venom-honey bee Allergy Swelling Verified 01/01/24 20:17
[bee venom (honey bee)]
Home Medications
aspirin 81 mg tablet,delayed release 81 mg PO HS Blood clot prevention/tx 08/05/14
ascorbic acid (vitamin C) 1,000 mg tablet (Vitamin C) 1,000 mg PO BID Supplement 05/15/22
atorvastatin 40 mg tablet 40 mg PO HS High cholesterol 05/15/22
cholecalciferol (vitamin D3) 50 mcg (2,000 unit) tablet 2,000 units PO DAILY Supplement 05/15/22
memantine 10 mg tablet 10 mg PO BID dementia 05/15/22
pantoprazole 40 mg tablet,delayed release 40 mg PO BID 28 days #56 tabs 05/19/22
multivitamin 1 tab PO DAILY Supplement 01/27/23
zinc acetate 50 mg (zinc) capsule 50 mg PO DAILY Supplement 01/27/23
acetaminophen 325 mg tablet (Tylenol) 650 mg PO Q6H PRN fever, mild pain 01/01/24
donepezil 10 mg tablet 10 mg PO DAILY dementia 01/01/24
cetirizine 10 mg tablet (Aller-Yvonne) 10 mg PO DAILY 01/24/24
citalopram 20 mg tablet (Celexa) 20 mg PO DAILY 01/24/24
docusate sodium 100 mg capsule (Colace) 100 mg PO BID 01/24/24
finasteride 5 mg tablet 5 mg PO DAILY 01/24/24
Review of Systems
-
A 12 point ROS was completed and negative except as noted: Yes
Constitutional: Denies Fever or Chills
Respiratory: Denies Cough or Trouble Breathing
Cardiac: Denies Chest Pain or Palpitations
Abdomen/GI: Denies Nausea, Vomiting or Diarrhea
Physical Exam
Vital Signs
Vital Signs
Temp Pulse Resp BP Pulse Ox
97.7 F 58 17 137/71 96
01/24/24 08:20 01/24/24 13:45 01/24/24 13:45 01/24/24 13:00 01/24/24 13:45
Physical Exam
General: Comfortable and Conversant
HEENT: Anicteric and Moist mucous membranes
Respiratory: Clear and Non Labored Respirations
Cardiac: S1/S2 and Regular Rhythm; No Murmur
GI: Soft, Non Tender and Non Distended
Rectal: Deferred by Provider
Musculoskeletal: No Clubbing, No Cyanosis and No Edema
Skin: Warm and Dry
Neuro: Awake, Alert and Nonfocal/grossly intact
Laboratory Results
-
01/24/24 08:27
01/24/24 08:27
Laboratory Results
Total Bilirubin 1.0 mg/dl (0.2-1.3) 01/24/24 08:27
AST 30 U/L (17-59) 01/24/24 08:27
ALT 23 U/L (0-50) 01/24/24 08:27
Alkaline Phosphatase 110 U/L (38-126) 01/24/24 08:27
Troponin I 0.013 ng/ml 01/24/24 08:27
Data Reviewed
-
Lab Data: Labs Reviewed by me
Impression/Plan
-
Symptomatic Orthostatic Hypotension
-Continue IVFs
-Add RAMONA stockings
-Consult PT/OT
-Monitor orthostatic VS
Coronary Artery Disease s/p Stents
-Continue aspirin
Hyperlipidemia
-Continue atorvastatin
Dementia, unknown type
-Continue Namenda and Aricept
-Monitor for mood/behavior changes during hospitalization
Depression
-Continue Celexa
BPH
-Continue finasteride
DVT proph: SCDs
Code Status: Full Code
[2024-01-24] MEDS: LIDOCAINE 4% PATCH 1 PATCH TOPICAL (17:48)
[2024-01-24] MEDS: NAMENDA 10 MG PO (20:22)
[2024-01-24] MEDS: VITAMIN C 1000 MG PO (20:22)
[2024-01-24] MEDS: COLACE 100 MG PO (20:22)
[2024-01-24] MEDS: LIPITOR 40 MG PO (21:23)
[2024-01-24] MEDS: ASPIR LOW (ENTERIC COATED) 81 MG PO (21:23)
[2024-01-25] VITALS (9 sets, daily range): BP systolic 77–171; BP diastolic 62–93; PULSE 62–116; BMI 29.0
[2024-01-25] MEDS: TYLENOL 650 MG PO ×2 (08:02→20:05)
[2024-01-25] MEDS: CELEXA 20 MG PO (08:03)
[2024-01-25] MEDS: NAMENDA 10 MG PO ×2 (08:03→19:57)
[2024-01-25] MEDS: VITAMIN C 1000 MG PO ×2 (08:03→19:57)
[2024-01-25] MEDS: PROTONIX 40 MG PO (08:03)
[2024-01-25] MEDS: COLACE 100 MG PO ×2 (08:03→19:57)
[2024-01-25] MEDS: ZINC SULFATE 220 MG PO (08:03)
[2024-01-25] MEDS: ARICEPT 10 MG PO (08:04)
[2024-01-25] MEDS: VITAMIN D3 (cholecalciferol) 50 MCG PO (08:04)
[2024-01-25] MEDS: ZYRTEC 10 MG PO (08:04)
[2024-01-25] MEDS: LIDOCAINE 4% PATCH 1 PATCH TOPICAL (08:04)
[2024-01-25] MEDS: PROSCAR 5 MG PO (08:05)
[2024-01-25 08:34] LABS: Hematocrit 40.4 % (39.0-52.0); Hemoglobin 14.1 g/dL (13.0-18.0); Mean Corp Hgb Conc. 34.9 g/dL (33.0-37.0); Mean Corpuscular Hgb 32.9 pg (27.0-31.0); Mean Corpuscular Volume 94.2 fL (80.0-94.0); Mean Platelet Volume 9.4 fL (7.4-10.4); Platelet Count 164 10^3/uL (130-400); Red Blood Cell Count 4.29 10^6/uL (4.70-6.10); Red Cell Dist. Width 13.4 % (11.5-14.5); White Blood Cell Count 6.3 10^3/uL (4.8-10.8)
[2024-01-25 09:19] LABS: Blood Urea Nitrogen 16 mg/dl (9-20); Calcium 8.8 mg/dl (8.4-10.2); Carbon Dioxide 28 mmol/L (22-30); Chloride 101 mmol/L (98-107); Estimated Creatinine Clearance 75 ml/min; Glucose 98 mg/dl (70-99); Potassium 4.2 mmol/L (3.5-5.1); Sodium 136 mmol/L (135-145); eGFR > 60.00
[2024-01-25 09:26] LABS: TSH Reflex To Free T4 0.71 uIU/ml (0.47-4.68)
--- NOTE | 2024-01-25 09:42 | VNURNOTE ---
Patient is current with [facility] since 01/08 w/ SN/PT, will monitor progress and plan at discharge.
--- NOTE | 2024-01-25 11:48 | W.PN.HOSP.TC ---
Today's Communication/Plan
-
cont IVF
consider holding celexa.....
cont PT/OT
Assessment / Plan
Assessment / Plan
pt is an 83 year old male
Symptomatic Orthostatic Hypotension--pt NOT on any BP meds--likely due to PO intake through the day (pt states that he is up every 2 hours to sip on liquids due to a 'drip' I presume urine leakage)--cont IVF--follow orthostatic VS--agree
with teds--PT/OT
fall--pt came because he fell at home, imaging studies negative--lidocaine suzette patch, would avoid narcotics--found to be orthostatic and admitted for that--PT/OT
Coronary Artery Disease s/p Stents--Continue aspirin
Hyperlipidemia--Continue atorvastatin
Dementia, unknown type--Continue Namenda and Aricept--Monitor for mood/behavior changes during hospitalization
Depression--Continue Celexa (recently started by PCP)--could this be related to orthostasis?
BPH--Continue finasteride
DVT proph: SCDs
Code Status: Full Code
Anticipated Discharge: 24 - 48 hours
Subjective/Interval History
-
Date of Service: January 25, 2024
pt dizzy with sitting up
Objective Data
-
Labs:
Laboratory Results
01/25/24
07:30
WBC 6.3
Hgb 14.1
Hct 40.4
Plt Count 164
Sodium 136
Potassium 4.2
Chloride 101
Carbon Dioxide 28
BUN 16
Creatinine 0.7
Glucose 98
Calcium 8.8
Vital Signs:
max temp for 24 hours
01/24/24
22:49
Temp 99.2 F
Vital Signs
Temp Pulse Resp BP Pulse Ox
97.9 F 62 16 167/81 95
01/25/24 07:30 01/25/24 07:30 01/25/24 07:30 01/25/24 03:07 01/25/24 07:30
I&O
01/24/24 01/25/24 01/26/24
06:59 06:59 06:59
Intake Total 400 / 400
Output Total 500 / 500
Balance -100 / -100
Review of Systems
-
All other systems: Reviewed and negative
Abdomen/GI: Reports Constipated
Neuro: Reports Dizzy (with sitting up)
Physical Exam
-
General: Well Developed, Well Nourished and No Apparent Distress
HEENT: Normocephalic and Atraumatic; Negative Oxygen
Respiratory: Clear to Auscultation; Negative Wheezes or Rhonchi
Cardiac: Regular Rhythm and S1/S2; Negative Murmur
GI: Soft, Nontender, Nondistended and Normal Bowel Sounds
Musculoskeletal: No Clubbing, No Cyanosis and No Edema
Neuro: Awake and Alert
[2024-01-25] MEDS: MIRALAX 17 GRAMS PO (12:13)
[2024-01-25] MEDS: NSS 1000 IV ×2 (12:32→23:45)
--- NOTE | 2024-01-25 14:54 | CM ---
Patient seen at bedside with physician. Patient lives with in [place], one story home with one step to enter. Patient uses walker and his PCP is Dr. Fernandez. Patient uses [facility] in [place] and patient is current with [facility]. CM will continue to
follow for discharge planning needs. CM will continue to follow for discharge planning needs.
Plan; home with [facility]
[2024-01-25] MEDS: ASPIR LOW (ENTERIC COATED) 81 MG PO (21:20)
[2024-01-25] MEDS: LIPITOR 40 MG PO (21:20)
[2024-01-26 03:00] VITALS: BP 168/106; BP 190/99; PULSE 68; PULSE 84; BMI 29.5
[2024-01-26 05:21] VITALS: BP 167/88
[2024-01-26 07:00] VITALS: BP 160/90
[2024-01-26 08:02] LABS: Hematocrit 40.1 % (39.0-52.0); Hemoglobin 13.8 g/dL (13.0-18.0); Mean Corp Hgb Conc. 34.4 g/dL (33.0-37.0); Mean Corpuscular Hgb 32.1 pg (27.0-31.0); Mean Corpuscular Volume 93.3 fL (80.0-94.0); Mean Platelet Volume 9.4 fL (7.4-10.4); Platelet Count 150 10^3/uL (130-400); Red Cell Dist. Width 13.4 % (11.5-14.5)
[2024-01-26] MEDS: VITAMIN C 1000 MG PO ×2 (09:44→20:09)
[2024-01-26] MEDS: PROTONIX 40 MG PO (09:44)
[2024-01-26] MEDS: ZINC SULFATE 220 MG PO (09:44)
[2024-01-26] MEDS: ARICEPT 10 MG PO (09:45)
[2024-01-26] MEDS: ZYRTEC 10 MG PO (09:45)
[2024-01-26] MEDS: COLACE 100 MG PO ×2 (09:45→20:09)
[2024-01-26] MEDS: NAMENDA 10 MG PO ×2 (09:45→20:09)
[2024-01-26] MEDS: CELEXA 20 MG PO (09:45)
[2024-01-26] MEDS: VITAMIN D3 (cholecalciferol) 50 MCG PO (09:46)
[2024-01-26] MEDS: PROSCAR 5 MG PO (09:46)
[2024-01-26] MEDS: MIRALAX 17 GRAMS PO (09:46)
[2024-01-26] MEDS: LIDOCAINE 4% PATCH 1 PATCH TOPICAL (09:49)
[2024-01-26] MEDS: TYLENOL 650 MG PO ×4 (09:54→20:09)
[2024-01-26 10:39] LABS: Blood Urea Nitrogen 13 mg/dl (9-20); Calcium 8.4 mg/dl (8.4-10.2); Carbon Dioxide 27 mmol/L (22-30); Chloride 102 mmol/L (98-107); Estimated Creatinine Clearance 65 ml/min; Glucose 104 mg/dl (70-99); Potassium 3.9 mmol/L (3.5-5.1); Sodium 133 mmol/L (135-145); eGFR > 60.00
[2024-01-26 11:00] VITALS: BP 188/94
--- NOTE | 2024-01-26 12:05 | W.PN.HOSP.TC ---
Today's Communication/Plan
-
change tylenol
d/c planning
follow orthostatics
Assessment / Plan
Assessment / Plan
pt is an 83 year old male
Symptomatic Orthostatic Hypotension--pt NOT on any BP meds--likely due to PO intake through the day (pt states that he is up every 2 hours to sip on liquids due to a 'drip' I presume urine leakage)--stop IVF--follow orthostatic VS--agree
with teds--PT/OT
fall--pt came because he fell at home, imaging studies negative--lidocaine suzette patch, would avoid narcotics--found to be orthostatic and admitted for that--PT/OT--change tylenol to standing
Coronary Artery Disease s/p Stents--Continue aspirin
Hyperlipidemia--Continue atorvastatin
Dementia, unknown type--Continue Namenda and Aricept--Monitor for mood/behavior changes during hospitalization
Depression--Continue Celexa (recently started by PCP)--could this be related to orthostasis?
BPH--Continue finasteride
DVT proph: SCDs
Code Status: Full Code
Anticipated Discharge: > 48 hours
Subjective/Interval History
-
Date of Service: January 26, 2024
pt c/o back pain when trying to sit up
Objective Data
-
Labs:
Laboratory Results
01/26/24
07:27
WBC 7.0
Hgb 13.8
Hct 40.1
Plt Count 150
Sodium 133 L
Potassium 3.9
Chloride 102
Carbon Dioxide 27
BUN 13
Creatinine 0.8
Glucose 104 H
Calcium 8.4
Vital Signs:
max temp for 24 hours
01/25/24
15:30
Temp 98.5 F
Vital Signs
Temp Pulse Resp BP Pulse Ox
98.0 F 63 18 160/90 93
01/26/24 07:00 01/26/24 07:00 01/26/24 07:00 01/26/24 07:00 01/26/24 07:00
I&O
01/25/24 01/26/24 01/27/24
06:59 06:59 06:59
Intake Total 400 / 400 1280 / 1280
Output Total 500 / 500 2475 / 2475
Balance -100 / -100 -1195 / -1195
Review of Systems
-
All other systems: Reviewed and negative
Musculoskeletal: Reports Other (back pain)
Physical Exam
-
General: Well Developed, Well Nourished and No Apparent Distress
HEENT: Normocephalic and Atraumatic
Respiratory: Clear to Auscultation; Negative Wheezes or Rhonchi
Cardiac: Regular Rhythm and S1/S2; Negative Murmur
GI: Soft, Nontender, Nondistended and Normal Bowel Sounds
Musculoskeletal: No Clubbing, No Cyanosis and No Edema
Neuro: Awake
Psych: Calm
--- NOTE | 2024-01-26 12:09 | CM ---
Addendum entered by Genie Bergeron 01/26/24 16:50:
Daughter called requesting referrals to [facility], [facility], [facility], [facility], [facility] and [facility]. Referrals sent via all scripts.
Addendum entered by Genie Bergeron 01/26/24 14:14:
patient and daughter discussed process with physician and CM, they are looking at options and will update CM with referral choices. they asked patient not be have referral sent to [facility].
Original Note:
Patient states that he may need SNF, when CM and physician met with patient earlier today. Patient requested referral to [facility] and [facility]. CM will send referrals. Patient currently not medically stable for transfer today. CM will send referrals
via all script to [facility] and [facility]. CM will continue to follow for discharge planning needs.
Plan; SNF; referrals to be sent
[2024-01-26] MEDS: NSS IV (12:29)
[2024-01-26] MEDS: ASPIR LOW (ENTERIC COATED) 81 MG PO (20:09)
[2024-01-26] MEDS: LIPITOR 40 MG PO (20:09)
[2024-01-26 22:30] VITALS: BP 149/85; BP 165/92; PULSE 69; PULSE 74
[2024-01-27] MEDS: TYLENOL PO ×2 (01:40→10:18)
[2024-01-27] MEDS: TYLENOL 650 MG PO ×5 (05:33→21:32)
[2024-01-27 07:00] VITALS: BP 170/95
[2024-01-27] MEDS: CELEXA 20 MG PO (08:00)
[2024-01-27] MEDS: ZYRTEC 10 MG PO (08:00)
[2024-01-27] MEDS: ZINC SULFATE 220 MG PO (08:00)
[2024-01-27] MEDS: MIRALAX 17 GRAMS PO (08:00)
[2024-01-27] MEDS: NAMENDA 10 MG PO ×2 (08:00→20:02)
[2024-01-27] MEDS: PROSCAR 5 MG PO (08:01)
[2024-01-27] MEDS: COLACE 100 MG PO ×2 (08:01→20:02)
[2024-01-27] MEDS: VITAMIN D3 (cholecalciferol) 50 MCG PO (08:01)
[2024-01-27] MEDS: ARICEPT 10 MG PO (08:01)
[2024-01-27] MEDS: VITAMIN C 1000 MG PO ×2 (08:02→20:10)
[2024-01-27] MEDS: PROTONIX 40 MG PO (08:02)
[2024-01-27] MEDS: LIDOCAINE 4% PATCH 1 PATCH TOPICAL (08:02)
[2024-01-27 08:25] LABS: Hematocrit 41.8 % (39.0-52.0); Hemoglobin 14.6 g/dL (13.0-18.0); Mean Corp Hgb Conc. 34.9 g/dL (33.0-37.0); Mean Corpuscular Hgb 31.7 pg (27.0-31.0); Mean Corpuscular Volume 90.9 fL (80.0-94.0); Platelet Count 176 10^3/uL (130-400); Red Cell Dist. Width 13.3 % (11.5-14.5); White Blood Cell Count 6.9 10^3/uL (4.8-10.8)
[2024-01-27 09:14] LABS: Blood Urea Nitrogen 15 mg/dl (9-20); Calcium 8.9 mg/dl (8.4-10.2); Carbon Dioxide 28 mmol/L (22-30); Chloride 103 mmol/L (98-107); Estimated Creatinine Clearance 75 ml/min; Glucose 107 mg/dl (70-99); Magnesium 2.1 mg/dl (1.6-2.3); Potassium 4.3 mmol/L (3.5-5.1); Sodium 133 mmol/L (135-145); eGFR > 60.00
--- NOTE | 2024-01-27 13:35 | PN.CDI ---
CDI
- -
CDI:
Physician Documentation Request
Admit Date: 01/24/24 14:44
Dear Doctor Samantha,
Patient admitted with symptomatic orthostatic hypotension.
Sodium resulted as follows:
Laboratory Tests
01/25/24 01/26/24 01/27/24
07:30 07:27 07:57
Sodium 136 133 L 133 L
Could you please provide a diagnosis that supports the above lab abnormalities and additional evaluation/ monitoring:
Hyponatremia
Abnormal lab value clinically insignificant
Other
Use of terms such as suspected, likely, concern for, or probable (associated with a specific diagnosis that is being evaluated, monitored, or treated as if it exists) are acceptable and can be coded in the inpatient setting, when documented at the
time of discharge.
Thank you,
Selma Limon RN,BSN
CDI Specialist
tiger text
Please use your independent medical judgment in providing your response.
[2024-01-27 15:00] VITALS: BP 176/97
--- NOTE | 2024-01-27 15:19 | W.PN.HOSP.TC ---
Today's Communication/Plan
-
PT/OT
Assessment / Plan
Assessment / Plan
pt is an 83 year old male
Symptomatic Orthostatic Hypotension--pt NOT on any BP meds--likely due to PO intake through the day (pt states that he is up every 2 hours to sip on liquids due to a 'drip' I presume urine leakage)--stop IVF--follow orthostatic VS--agree
with teds--PT/OT, need to get pt moving
fall--pt came because he fell at home, imaging studies negative--lidocaine suzette patch, would avoid narcotics--found to be orthostatic and admitted for that--PT/OT--change Tylenol to standing and add standing motrin
hyponatremia -- likely due to pain
Coronary Artery Disease s/p Stents--Continue aspirin
Hyperlipidemia--Continue atorvastatin
Dementia, unknown type--Continue Namenda and Aricept--Monitor for mood/behavior changes during hospitalization
Depression--Continue Celexa (recently started by PCP)--could this be related to orthostasis?
BPH--Continue finasteride
DVT proph: SCDs
Code Status: Full Code
Anticipated Discharge: 24 - 48 hours
Subjective/Interval History
-
Date of Service: January 27, 2024
pt won't get out of bed because his back hurts
Objective Data
-
Labs:
Laboratory Results
01/27/24
07:57
WBC 6.9
Hgb 14.6
Hct 41.8
Plt Count 176
Sodium 133 L
Potassium 4.3
Chloride 103
Carbon Dioxide 28
BUN 15
Creatinine 0.7
Glucose 107 H
Calcium 8.9
Vital Signs:
max temp for 24 hours
01/26/24
11:00
Temp 97.7 F
Vital Signs
Temp Pulse Resp BP Pulse Ox
97.8 F 72 18 170/95 99
01/27/24 07:00 01/27/24 07:00 01/27/24 07:00 01/27/24 07:00 01/27/24 08:00
I&O
01/26/24 01/27/24 01/28/24
06:59 06:59 06:59
Intake Total 1280 / 1280 1080 / 1080
Output Total 2475 / 2475 250 / 250
Balance -1195 / -1195 830 / 830
Review of Systems
-
All other systems: Reviewed and negative
Physical Exam
-
General: Well Developed, Well Nourished and No Apparent Distress
HEENT: Normocephalic and Atraumatic
Respiratory: Clear to Auscultation; Negative Wheezes or Rhonchi
Cardiac: Regular Rhythm and S1/S2; Negative Murmur
GI: Soft, Nontender, Nondistended and Normal Bowel Sounds
Musculoskeletal: No Clubbing, No Cyanosis and No Edema
Neuro: Awake
--- NOTE | 2024-01-27 15:42 | CM ---
Patient accepted at [facility], [facility] and [facility]. CM updated patient and patient daughter. CM will continue to follow for discharge planning needs.
Plan; SNF; [facility] is first choice.
[2024-01-27] MEDS: MOTRIN 400 MG PO ×2 (17:00→21:32)
[2024-01-27] MEDS: ASPIR LOW (ENTERIC COATED) 81 MG PO (21:32)
[2024-01-27] MEDS: LIPITOR 40 MG PO (21:32)
[2024-01-27 22:30] VITALS: BP 131/69; BP 143/73; PULSE 69; PULSE 75
[2024-01-28] MEDS: TYLENOL 650 MG PO ×5 (01:10→21:34)
[2024-01-28 03:00] VITALS: BP 147/74
[2024-01-28] MEDS: MOTRIN 400 MG PO ×4 (04:10→21:34)
[2024-01-28 07:20] VITALS: BP 183/95
[2024-01-28 08:11] LABS: Hematocrit 42.2 % (39.0-52.0); Hemoglobin 14.5 g/dL (13.0-18.0); Mean Corp Hgb Conc. 34.4 g/dL (33.0-37.0); Mean Corpuscular Hgb 31.5 pg (27.0-31.0); Mean Corpuscular Volume 91.5 fL (80.0-94.0); Mean Platelet Volume 8.9 fL (7.4-10.4); Platelet Count 180 10^3/uL (130-400); Red Blood Cell Count 4.61 10^6/uL (4.70-6.10); Red Cell Dist. Width 13.4 % (11.5-14.5); White Blood Cell Count 6.7 10^3/uL (4.8-10.8)
[2024-01-28 08:49] LABS: Blood Urea Nitrogen 26 mg/dl (9-20); Calcium 9.5 mg/dl (8.4-10.2); Carbon Dioxide 30 mmol/L (22-30); Chloride 99 mmol/L (98-107); Estimated Creatinine Clearance 48 ml/min; Glucose 106 mg/dl (70-99); Potassium 4.5 mmol/L (3.5-5.1); Sodium 137 mmol/L (135-145); eGFR > 60.00
[2024-01-28] MEDS: MIRALAX 17 GRAMS PO (08:54)
[2024-01-28] MEDS: LIDOCAINE 4% PATCH 1 PATCH TOPICAL (08:54)
[2024-01-28] MEDS: COLACE 100 MG PO (08:56)
[2024-01-28] MEDS: PROSCAR 5 MG PO (08:56)
[2024-01-28] MEDS: VITAMIN C 1000 MG PO ×2 (08:56→20:15)
[2024-01-28] MEDS: NAMENDA 10 MG PO ×2 (08:56→20:15)
[2024-01-28] MEDS: ARICEPT 10 MG PO (08:57)
[2024-01-28] MEDS: PROTONIX 40 MG PO (08:57)
[2024-01-28] MEDS: CELEXA 20 MG PO (08:57)
[2024-01-28] MEDS: ZINC SULFATE 220 MG PO (08:58)
[2024-01-28] MEDS: ZYRTEC 10 MG PO (08:58)
[2024-01-28] MEDS: VITAMIN D3 (cholecalciferol) 50 MCG PO (08:58)
[2024-01-28 09:52] VITALS: BP 149/82; BP 157/90; PULSE 70; PULSE 81; O2SAT 95
[2024-01-28 09:53] VITALS: BP 149/82; BP 157/90
--- NOTE | 2024-01-28 12:37 | W.PN.HOSP.TC ---
Today's Communication/Plan
-
heating pad
add baclofen
enema (says still hasn't moved bowels)
PT/OT
d/c planning
Assessment / Plan
Assessment / Plan
pt is an 83 year old male
Symptomatic Orthostatic Hypotension--pt NOT on any BP meds--likely due to PO intake through the day (pt states that he is up every 2 hours to sip on liquids due to a 'drip' I presume urine leakage)--stop IVF--follow orthostatic VS--agree
with teds--PT/OT, need to get pt moving
fall--pt came because he fell at home, imaging studies negative--lidocaine suzette patch, would avoid narcotics--found to be orthostatic and admitted for that--PT/OT--change Tylenol to standing and add standing motrin, add heating pad and baclofen
hyponatremia -- likely due to pain
Coronary Artery Disease s/p Stents--Continue aspirin
Hyperlipidemia--Continue atorvastatin
Dementia, unknown type--Continue Namenda and Aricept--Monitor for mood/behavior changes during hospitalization
Depression--Continue Celexa (recently started by PCP)--could this be related to orthostasis?
BPH--Continue finasteride
DVT proph: SCDs
Code Status: Full Code
Anticipated Discharge: > 48 hours
Subjective/Interval History
-
Date of Service: January 28, 2024
pt said his pain was better
would not stand with PT
Objective Data
-
Labs:
Laboratory Results
01/28/24
07:40
WBC 6.7
Hgb 14.5
Hct 42.2
Plt Count 180
Sodium 137
Potassium 4.5
Chloride 99
Carbon Dioxide 30
BUN 26 H
Creatinine 1.1
Glucose 106 H
Calcium 9.5
Vital Signs:
max temp for 24 hours
01/28/24
03:00
Temp 98.5 F
Vital Signs
Temp Pulse Resp BP Pulse Ox
97.5 F 68 16 183/95 96
01/28/24 07:20 01/28/24 07:20 01/28/24 07:20 01/28/24 07:20 01/28/24 07:20
I&O
01/27/24 01/28/24 01/29/24
06:59 06:59 06:59
Intake Total 1080 / 1080 460 / 460
Output Total 250 / 250 100 / 100
Balance 830 / 830 360 / 360
Review of Systems
-
All other systems: Reviewed and negative
Physical Exam
-
General: Well Developed, Well Nourished and No Apparent Distress
HEENT: Normocephalic and Atraumatic
Respiratory: Clear to Auscultation; Negative Wheezes or Rhonchi
Cardiac: Regular Rhythm and S1/S2; Negative Murmur
GI: Soft, Nontender, Nondistended and Normal Bowel Sounds
Musculoskeletal: No Clubbing, No Cyanosis and No Edema
Neuro: Awake
Psych: Apparent Dementia
--- NOTE | 2024-01-28 15:10 | CM ---
Patient seen at bedside, Physician called to [facility] and discussed with Lisseth plan of care. Patient to have continued PT and plan for transfer to [facility] on wednesday, first available bed as [facility] does not accept admissions on wed or wed. Lisseth from admissions
indicated that patient would not lose bed. CM updated patient and daughter. CM will continue to follow for discharge planning needs.
Plan; transfer to SNF; [facility] wednesday, pending physician assessment
[2024-01-28 15:36] VITALS: BP 162/83
[2024-01-28] MEDS: TYLENOL PO (15:40)
--- NOTE | 2024-01-28 19:42 | PTCARENOTE ---
Milk and molasses enema 200ML given as ordered. Pt had return of soft brown stool with return of enema.
[2024-01-28] MEDS: COLACE PO (20:15)
[2024-01-28] MEDS: LIORESAL 2.5 MG PO (20:15)
[2024-01-28] MEDS: LIPITOR 40 MG PO (21:34)
[2024-01-28] MEDS: ASPIR LOW (ENTERIC COATED) 81 MG PO (21:34)
[2024-01-28 23:59] VITALS: BP 136/68
[2024-01-29] MEDS: TYLENOL 650 MG PO ×6 (02:01→22:01)
[2024-01-29] MEDS: MOTRIN 400 MG PO ×4 (04:00→22:01)
[2024-01-29 07:00] VITALS: BP 140/86
[2024-01-29] MEDS: MIRALAX 17 GRAMS PO (09:22)
[2024-01-29] MEDS: VITAMIN C 1000 MG PO ×2 (09:24→19:43)
[2024-01-29] MEDS: LIORESAL 2.5 MG PO (09:24)
[2024-01-29] MEDS: LIDOCAINE 4% PATCH 1 PATCH TOPICAL (09:24)
[2024-01-29] MEDS: ZYRTEC 10 MG PO (09:24)
[2024-01-29] MEDS: PROTONIX 40 MG PO (09:24)
[2024-01-29] MEDS: CELEXA 20 MG PO (09:24)
[2024-01-29] MEDS: COLACE 100 MG PO ×2 (09:25→19:43)
[2024-01-29] MEDS: NAMENDA 10 MG PO ×2 (09:25→19:45)
[2024-01-29] MEDS: ARICEPT 10 MG PO (09:25)
[2024-01-29] MEDS: ZINC SULFATE 220 MG PO (09:25)
[2024-01-29] MEDS: PROSCAR 5 MG PO (09:25)
[2024-01-29] MEDS: VITAMIN D3 (cholecalciferol) 50 MCG PO (09:25)
--- NOTE | 2024-01-29 12:27 | W.PN.HOSP.TC ---
Today's Communication/Plan
-
encourage pt to get moving
Assessment / Plan
Assessment / Plan
pt is an 83 year old male
Symptomatic Orthostatic Hypotension--pt NOT on any BP meds--likely due to PO intake through the day (pt states that he is up every 2 hours to sip on liquids due to a 'drip' I presume urine leakage)--stop IVF--follow orthostatic VS--agree
with teds--PT/OT, need to get pt moving, nursing reports not motivated
fall--pt came because he fell at home, imaging studies negative--lidocaine suzette patch, would avoid narcotics--found to be orthostatic and admitted for that--PT/OT--change Tylenol to standing and add standing motrin, add heating pad and baclofen
hyponatremia -- likely due to pain--resolved
Coronary Artery Disease s/p Stents--Continue aspirin
Hyperlipidemia--Continue atorvastatin
Dementia, unknown type--Continue Namenda and Aricept--Monitor for mood/behavior changes during hospitalization
Depression--Continue Celexa (recently started by PCP)--could this be related to orthostasis?
BPH--Continue finasteride
DVT proph: SCDs
Code Status: Full Code
Anticipated Discharge: > 48 hours
Subjective/Interval History
-
Date of Service: January 29, 2024
nursing reports pt not motivated to do anything
Objective Data
-
Vital Signs:
max temp for 24 hours
01/28/24
23:59
Temp 97.5 F
Vital Signs
Temp Pulse Resp BP Pulse Ox
97.7 F 72 18 140/86 97
01/29/24 07:00 01/29/24 07:00 01/29/24 07:00 01/29/24 07:00 01/29/24 07:00
I&O
01/28/24 01/29/24 01/30/24
06:59 06:59 06:59
Intake Total 460 / 460 240 / 240
Output Total 100 / 100 450 / 450
Balance 360 / 360 -210 / -210
Review of Systems
-
All other systems: Reviewed and negative
Physical Exam
-
General: Well Developed, Well Nourished and No Apparent Distress
HEENT: Normocephalic and Atraumatic
Respiratory: Clear to Auscultation; Negative Wheezes or Rhonchi
Cardiac: Regular Rhythm and S1/S2; Negative Murmur
GI: Soft, Nontender, Nondistended and Normal Bowel Sounds
Musculoskeletal: No Clubbing, No Cyanosis and No Edema
Neuro: Awake
[2024-01-29 15:00] VITALS: BP 144/86; BP 170/90; PULSE 74; PULSE 89
--- NOTE | 2024-01-29 17:56 | PTCARENOTE ---
Pt was OOB to chair for 2+/- hours today - heavy 2 assist to stand/pivot to chair. Pt did stand for Ortho BP's but d/t shaking/holding onto Aid, standing BP did not register on cuff and Pt could no longer stand for another attempt. Unable to apply
RAMONA martínez d/t SPD not having any XL.
[2024-01-29] MEDS: LIPITOR 40 MG PO (19:44)
[2024-01-29] MEDS: ASPIR LOW (ENTERIC COATED) 81 MG PO (19:45)
[2024-01-29 23:33] VITALS: BP 138/71; BP 139/74; PULSE 71; PULSE 74
[2024-01-30] MEDS: TYLENOL PO ×2 (03:03→18:17)
[2024-01-30] MEDS: MOTRIN PO (05:05)
[2024-01-30] MEDS: TYLENOL 650 MG PO ×4 (06:07→21:29)
[2024-01-30 07:21] VITALS: BP 170/86
[2024-01-30 07:39] LABS: Hematocrit 40.5 % (39.0-52.0); Hemoglobin 13.9 g/dL (13.0-18.0); Mean Corp Hgb Conc. 34.3 g/dL (33.0-37.0); Mean Corpuscular Volume 93.3 fL (80.0-94.0); Mean Platelet Volume 8.9 fL (7.4-10.4); Platelet Count 200 10^3/uL (130-400); Red Blood Cell Count 4.34 10^6/uL (4.70-6.10); Red Cell Dist. Width 13.6 % (11.5-14.5); White Blood Cell Count 7.4 10^3/uL (4.8-10.8)
[2024-01-30] MEDS: COLACE 100 MG PO ×2 (08:00→19:58)
[2024-01-30] MEDS: ARICEPT 10 MG PO (08:00)
[2024-01-30] MEDS: VITAMIN C 1000 MG PO ×2 (08:00→19:58)
[2024-01-30] MEDS: ZYRTEC 10 MG PO (08:00)
[2024-01-30] MEDS: CELEXA 20 MG PO (08:00)
[2024-01-30] MEDS: NAMENDA 10 MG PO ×2 (08:00→19:58)
[2024-01-30] MEDS: PROSCAR 5 MG PO (08:00)
[2024-01-30] MEDS: PROTONIX 40 MG PO (08:00)
[2024-01-30] MEDS: ZINC SULFATE 220 MG PO (08:00)
[2024-01-30] MEDS: VITAMIN D3 (cholecalciferol) 50 MCG PO (08:00)
[2024-01-30] MEDS: LIDOCAINE 4% PATCH 1 PATCH TOPICAL (08:00)
[2024-01-30] MEDS: MIRALAX 17 GRAMS PO (08:00)
[2024-01-30 08:26] LABS: Blood Urea Nitrogen 41 mg/dl (9-20); Calcium 9.2 mg/dl (8.4-10.2); Carbon Dioxide 25 mmol/L (22-30); Chloride 106 mmol/L (98-107); Estimated Creatinine Clearance 37 ml/min; Glucose 97 mg/dl (70-99); Magnesium 2.4 mg/dl (1.6-2.3); Potassium 4.6 mmol/L (3.5-5.1); Sodium 137 mmol/L (135-145); eGFR 49.25
[2024-01-30] MEDS: MOTRIN 400 MG PO ×3 (10:00→21:31)
--- NOTE | 2024-01-30 11:13 | W.PN.HOSP.TC ---
Today's Communication/Plan
-
PT/OT
d/c planning
Assessment / Plan
Assessment / Plan
pt is an 83 year old male
Symptomatic Orthostatic Hypotension--pt NOT on any BP meds--likely due to PO intake through the day (pt states that he is up every 2 hours to sip on liquids due to a 'drip' I presume urine leakage)--stop IVF--follow orthostatic VS--agree
with teds--PT/OT, need to get pt moving, nursing reports not motivated--accepted to SNF when medically ready, hopefully Wednesday
fall--pt came because he fell at home, imaging studies negative--lidocaine suzette patch, would avoid narcotics--found to be orthostatic and admitted for that--PT/OT--change Tylenol to standing and add standing motrin, add heating pad and baclofen
hyponatremia -- likely due to pain--resolved
Coronary Artery Disease s/p Stents--Continue aspirin
Hyperlipidemia--Continue atorvastatin
Dementia, unknown type--Continue Namenda and Aricept--Monitor for mood/behavior changes during hospitalization
Depression--Continue Celexa (recently started by PCP)--could this be related to orthostasis?
BPH--Continue finasteride
DVT proph: SCDs
Code Status: Full Code
Anticipated Discharge: Within 24 hours
Subjective/Interval History
-
Date of Service: January 30, 2024
pt was out of bed to chair yesterday per nursing--need to work with therapy
Objective Data
-
Labs:
Laboratory Results
01/30/24
07:31
WBC 7.4
Hgb 13.9
Hct 40.5
Plt Count 200
Sodium 137
Potassium 4.6
Chloride 106
Carbon Dioxide 25
BUN 41 H
Creatinine 1.4 H
Glucose 97
Calcium 9.2
Vital Signs:
max temp for 24 hours
01/29/24
15:00
Temp 98.3 F
Vital Signs
Temp Pulse Resp BP Pulse Ox
97.9 F 73 16 170/86 95
01/30/24 07:21 01/30/24 07:21 01/30/24 07:21 01/30/24 07:21 01/30/24 07:21
I&O
01/29/24 01/30/24 01/31/24
06:59 06:59 06:59
Intake Total 240 / 240 1200 / 1200
Output Total 450 / 450 300 / 300
Balance -210 / -210 900 / 900
Review of Systems
-
All other systems: Reviewed and negative
Physical Exam
-
General: Well Developed, Well Nourished and No Apparent Distress
HEENT: Normocephalic and Atraumatic
Respiratory: Clear to Auscultation; Negative Wheezes or Rhonchi
Cardiac: Regular Rhythm and S1/S2; Negative Murmur
GI: Soft, Nontender, Nondistended and Normal Bowel Sounds
Musculoskeletal: No Clubbing, No Cyanosis and No Edema
Neuro: Awake
[2024-01-30 15:35] VITALS: BP 124/75; BP 155/76; BP 88/60; PULSE 78; PULSE 88; PULSE 95
[2024-01-30] MEDS: ASPIR LOW (ENTERIC COATED) 81 MG PO (21:29)
[2024-01-30] MEDS: LIPITOR 40 MG PO (21:29)
[2024-01-30 23:53] VITALS: BP 149/81
[2024-01-31 00:54] VITALS: BP 140/90; BP 149/81; PULSE 69; PULSE 76
[2024-01-31] MEDS: TYLENOL PO ×3 (02:49→16:16)
[2024-01-31] MEDS: MOTRIN PO (03:36)
[2024-01-31 07:30] VITALS: BP 174/90
[2024-01-31] MEDS: VITAMIN D3 (cholecalciferol) 50 MCG PO (08:00)
[2024-01-31] MEDS: CELEXA 20 MG PO (08:00)
[2024-01-31] MEDS: PROSCAR 5 MG PO (08:00)
[2024-01-31] MEDS: MIRALAX 17 GRAMS PO (08:00)
[2024-01-31] MEDS: ARICEPT 10 MG PO (08:00)
[2024-01-31] MEDS: LIDOCAINE 4% PATCH 1 PATCH TOPICAL (08:00)
[2024-01-31] MEDS: ZYRTEC 10 MG PO (08:00)
[2024-01-31] MEDS: COLACE 100 MG PO (08:00)
[2024-01-31] MEDS: ZINC SULFATE 220 MG PO (08:00)
[2024-01-31] MEDS: NAMENDA 10 MG PO (08:00)
[2024-01-31] MEDS: VITAMIN C 1000 MG PO (08:00)
[2024-01-31] MEDS: PROTONIX 40 MG PO (08:00)
[2024-01-31 08:56] LABS: Hematocrit 41.7 % (39.0-52.0); Hemoglobin 14.1 g/dL (13.0-18.0); Mean Corp Hgb Conc. 33.8 g/dL (33.0-37.0); Mean Corpuscular Hgb 31.5 pg (27.0-31.0); Mean Corpuscular Volume 93.3 fL (80.0-94.0); Platelet Count 234 10^3/uL (130-400); Red Blood Cell Count 4.47 10^6/uL (4.70-6.10); Red Cell Dist. Width 13.5 % (11.5-14.5); White Blood Cell Count 7.9 10^3/uL (4.8-10.8)
--- NOTE | 2024-01-31 09:11 | W.PN.HOSP.TC ---
Addendum entered and electronically signed by Arash Marinelli DO 01/31/24 12:37:
Repeat creatinine 1.4. Ibuprofen discontinued. Recommend BMP in 48 hours. Stable for discharge to residential. Avoid NSAIDs.
Original Note:
Today's Communication/Plan
-
Await labs
Assessment / Plan
Assessment / Plan
Gen-AAOx3, NAD
HEENT-NC, AT, anicteric, clear oral mm
Neck-supple
CV-reg, no M, +S1/S2
Lungs-clear B/L
Abd-soft, NT, ND
Ext-no edema
Musculoskeletal-no cyanosis, clubbing
Skin-warm and dry
Neuro-grossly non-focal
Psych-calm, cooperative
Symptomatic Orthostatic Hypotension--pt NOT on any BP meds--likely due to PO intake through the day (pt states that he is up every 2 hours to sip on liquids due to a 'drip' I presume urine leakage)--stop IVF--follow orthostatic VS--agree
with teds--PT/OT.
fall--pt came because he fell at home, imaging studies negative--lidocaine suzette patch, would avoid narcotics--found to be orthostatic and admitted for that--PT/OT--change Tylenol to standing and add standing motrin, add heating pad and baclofen
PRANAV -creatinine noted to be 1.4 yesterday, pending for today. Stop ibuprofen.
hyponatremia -- likely due to pain--resolved
Coronary Artery Disease s/p Stents--Continue aspirin
Hyperlipidemia--Continue atorvastatin
Dementia, unknown type--Continue Namenda and Aricept--Monitor for mood/behavior changes during hospitalization
Depression--Continue Celexa (recently started by PCP)--could this be related to orthostasis?
BPH--Continue finasteride
DVT proph: SCDs
Code Status: Full Code
Dispo -anticipate discharge to [facility] when medically stable, possibly today if PRANAV resolved.
Anticipated Discharge: Today
Subjective/Interval History
-
Date of Service: January 31, 2024
Patient seen and examined. No complaints.
Objective Data
-
Labs:
Laboratory Results
01/31/24
08:18
WBC Pending
Hgb Pending
Hct Pending
Plt Count Pending
Sodium Pending
Potassium Pending
Chloride Pending
Carbon Dioxide Pending
BUN Pending
Creatinine Pending
Glucose Pending
Calcium Pending
Vital Signs:
Vital Signs
Temp Pulse Resp BP Pulse Ox
97.7 F 73 18 174/90 96
01/31/24 07:30 01/31/24 07:30 01/31/24 07:30 01/31/24 07:30 01/31/24 07:30
I&O
01/30/24 01/31/24 02/01/24
06:59 06:59 06:59
Intake Total 1200 / 1200 600 / 600 240 / 240
Output Total 300 / 300 600 / 600
Balance 900 / 900 600 / 600 -360 / -360
Review of Systems
-
History Source: Patient
All other systems: Reviewed and negative
[2024-01-31 09:25] LABS: Blood Urea Nitrogen 44 mg/dl (9-20); Calcium 9.2 mg/dl (8.4-10.2); Carbon Dioxide 28 mmol/L (22-30); Chloride 104 mmol/L (98-107); Estimated Creatinine Clearance 37 ml/min; Glucose 96 mg/dl (70-99); Magnesium 2.4 mg/dl (1.6-2.3); Potassium 4.6 mmol/L (3.5-5.1); Sodium 139 mmol/L (135-145); eGFR 49.25
[2024-01-31] MEDS: TYLENOL 650 MG PO ×2 (09:59→17:28)
[2024-01-31 11:30] VITALS: BP 177/86
--- NOTE | 2024-01-31 12:36 | W.DS.TRANS ---
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
-
Discharge Instructions:
Discharge Diagnosis/Procedures Symptomatic Orthostatic hypotension, fall,
hyponatremia, coronary artery disease status
post stents in past, hyperlipidemia, dementia,
depression, benign prostatic hyperplasia
Diet As tolerated,Regular
Activity As tolerated
Driving Restrictions No driving
Bathing Restrictions None
Instructions:
Stand-Alone Forms:
Changes to Home Medications: No
Discharge Medications:
DC Medications w/original date entered in [employer]
aspirin 81 mg tablet,delayed release 81 mg PO HS Blood clot prevention/tx 08/05/14
ascorbic acid (vitamin C) 1,000 mg tablet (Vitamin C) 1,000 mg PO BID Supplement 05/15/22
atorvastatin 40 mg tablet 40 mg PO HS High cholesterol 05/15/22
cholecalciferol (vitamin D3) 50 mcg (2,000 unit) tablet 2,000 units PO DAILY Supplement 05/15/22
memantine 10 mg tablet 10 mg PO BID dementia 05/15/22
multivitamin 1 tab PO DAILY Supplement 01/27/23
zinc acetate 50 mg (zinc) capsule 50 mg PO DAILY Supplement 01/27/23
acetaminophen 325 mg tablet (Tylenol) 650 mg PO Q6H PRN fever, mild pain 01/01/24
donepezil 10 mg tablet 10 mg PO DAILY dementia 01/01/24
cetirizine 10 mg tablet (Aller-Yvonne) 10 mg PO DAILY Allergies 01/24/24
citalopram 20 mg tablet (Celexa) 20 mg PO DAILY depression/anxiety 01/24/24
docusate sodium 100 mg capsule (Colace) 100 mg PO BID Constipation 01/24/24
finasteride 5 mg tablet 5 mg PO DAILY Urinary Issue 01/24/24
baclofen 5 mg tablet 2.5 mg PO BIDPRN PRN back pain/spasm #0 tabs 01/31/24
lidocaine 4 % topical patch 1 patch topical DAILY #0 ea 01/31/24
pantoprazole 40 mg tablet,delayed release 40 mg PO DAILY #0 tabs 01/31/24
polyethylene glycol 3350 17 gram oral powder packet (HealthyLax) 17 g PO DAILY #0 ea 01/31/24
Home Medication Changes
Pending Results: No
--- NOTE | 2024-01-31 13:00 | CM ---
Addendum entered by Angelica Danielle 01/31/24 13:11:
1830 pickup
Alerted SNF admissions/Lisseth
Original Note:
CM reviewed pt with Dr Marinelli- ready for dc
Bed confirmed with Lisseth at [facility]
Medical necessity and transport form on chart
IMM verbally reviewed with spouse over phone
Copy left bedside for her arrival later today
Salsa Dance Instructor to arrange for ambulance transport
Discharge Disposition- [facility] via ambulance
[phone] (p) [phone] (f)
[2024-01-31 15:00] VITALS: BP 154/69
== END 2024-01-31 18:43 | DRG 312 ==
LOC: 4 WEST ACU 14:44
PROVIDERS: Physician Assistant; Physician Assistant Medical; ADMITTING PHYSICIAN Internal Medicine; ATTENDING PHYSICIAN Hospitalist; EMERGENCY PHYSICIAN Emergency Medicine; FAMILY PHYSICIAN Internal Medicine
DX: I95.1 Orthostatic hypotension (principal); E87.1 Hypo-osmolality and hyponatremia; N17.9 Acute kidney failure, unspecified; F03.93 Unspecified dementia, unspecified severity, with mood disturbance; R26.2 Difficulty in walking, not elsewhere classified; I25.10 Atherosclerotic heart disease of native coronary artery without angina pectoris; E78.00 Pure hypercholesterolemia, unspecified; F32.A Depression, unspecified; N40.0 Benign prostatic hyperplasia without lower urinary tract symptoms; I10 Essential (primary) hypertension; W19.XXXA Unspecified fall, initial encounter; Z95.5 Presence of coronary angioplasty implant and graft; Z79.82 Long term (current) use of aspirin
CPT/HCPCS: 70450; 72125; 72128; 80048; 80053; 83735; 84443; 84484; 85025; 85027; 93005; 96360; 97162; 97166; 97530; 97535; 99285

== ENCOUNTER → 2024-02-02 09:50 | Outpatient (REF) | payer OTHER, MEDICARE, BC, SELFPAY ==
[2024-02-02 11:25] LABS: Blood Urea Nitrogen 30 mg/dl (9-20); Carbon Dioxide 26 mmol/L (22-30); Chloride 103 mmol/L (98-107); Glucose 95 mg/dl (70-99); Potassium 4.6 mmol/L (3.5-5.1); Sodium 137 mmol/L (135-145); eGFR > 60.00
== END ==
LOC: OLABN 09:50
PROVIDERS: ATTENDING PHYSICIAN Student in an Organized Health Care Education/Training Program
DX: I25.10 Atherosclerotic heart disease of native coronary artery without angina pectoris (principal)
CPT/HCPCS: 36415; 80048

== ENCOUNTER → 2024-02-07 09:13 | Outpatient (REF) | payer OTHER, MEDICARE, BC, SELFPAY ==
[2024-02-07 10:44] LABS: % Basophils 1.2 % (0-2); % Eosinophils 2.5 % (0-6); % Immature Granulocytes 0.4 % (0-0.5); % Monocytes 8.9 % (1.7-9.3); Absolute Basophils 0.1 10^3/uL (0-0.2); Absolute Eosinophils 0.2 10^3/uL (0-0.7); Absolute Lymphocytes 2.2 10^3/uL (1.2-3.4); Absolute Monocytes 0.7 10^3/uL (0.1-0.6); Absolute Neutrophils 4.7 10^3/uL (1.4-6.5); Hematocrit 38.7 % (39.0-52.0); Mean Corp Hgb Conc. 33.6 g/dL (33.0-37.0); Mean Corpuscular Hgb 31.8 pg (27.0-31.0); Mean Corpuscular Volume 94.6 fL (80.0-94.0); Mean Platelet Volume 9.2 fL (7.4-10.4); Nucleated Red Blood Cells % 0 % (-); Platelet Count 268 10^3/uL (130-400); Red Blood Cell Count 4.09 10^6/uL (4.70-6.10); Red Cell Dist. Width 13.5 % (11.5-14.5)
[2024-02-07 10:59] LABS: ALT (SGPT) 22 U/L (0-50); AST (SGOT) 21 U/L (17-59); Albumin 3.5 g/dl (3.5-5.0); Alkaline Phosphatase 109 U/L (38-126); Blood Urea Nitrogen 22 mg/dl (9-20); Calcium 9.1 mg/dl (8.4-10.2); Carbon Dioxide 28 mmol/L (22-30); Chloride 103 mmol/L (98-107); Glucose 85 mg/dl (70-99); Magnesium 2.2 mg/dl (1.6-2.3); Potassium 4.1 mmol/L (3.5-5.1); Sodium 140 mmol/L (135-145); Total Bilirubin 0.8 mg/dl (0.2-1.3); Total Protein 6.2 g/dl (6.3-8.2); eGFR > 60.00
[2024-02-07 11:26] LABS: TSH 0.98 uIU/ml (0.47-4.68)
== END ==
LOC: OLABN 09:13
PROVIDERS: ATTENDING PHYSICIAN Student in an Organized Health Care Education/Training Program
DX: I10 Essential (primary) hypertension (principal); E03.9 Hypothyroidism, unspecified; D64.9 Anemia, unspecified
CPT/HCPCS: 36415; 80053; 83735; 84443; 85025

== ENCOUNTER → 2024-02-19 15:27 | Outpatient (REF) | payer OTHER, MEDICARE, BC, SELFPAY ==
[2024-02-19 16:52] LABS: Urine Albumin Negative (Neg - Trace); Urine Bilirubin Negative (Negative); Urine Character Clear (Clear); Urine Color Yellow; Urine Glucose Negative (Negative); Urine Ketone Negative (Negative); Urine Leukocyte Negative (Negative); Urine Nitrite Negative (Negative); Urine Occult Blood Negative (Negative); Urine Urobilinogen Negative (Neg - 1+)
== END ==
LOC: OLAB 15:27
PROVIDERS: ATTENDING PHYSICIAN Student in an Organized Health Care Education/Training Program
DX: S37.99XA Other injury of unspecified urinary and pelvic organ, initial encounter (principal)
CPT/HCPCS: 81003; 87086

== ENCOUNTER → 2024-03-06 13:09 | Outpatient (REF) | payer OTHER, MEDICARE, BC, SELFPAY ==
[2024-03-06 13:41] LABS: Urine Albumin Negative (Neg - Trace); Urine Bilirubin Negative (Negative); Urine Character Clear (Clear); Urine Color Yellow; Urine Glucose Negative (Negative); Urine Ketone Trace (Negative); Urine Leukocyte Negative (Negative); Urine Nitrite Negative (Negative); Urine Occult Blood Negative (Negative); Urine Urobilinogen Negative (Neg - 1+)
== END ==
LOC: OLABN 13:09
PROVIDERS: ATTENDING PHYSICIAN Student in an Organized Health Care Education/Training Program
DX: R31.9 Hematuria, unspecified (principal)
CPT/HCPCS: 81003; 87086

== ENCOUNTER → 2024-10-30 12:25 | Outpatient (REF) | payer MEDICARE, BC, SELFPAY | LOC: HWRAD 12:25 | PROVIDERS: ATTENDING PHYSICIAN Nurse Practitioner Family; FAMILY PHYSICIAN Internal Medicine; REFERRING PHYSICIAN Neurological Surgery | DX: L98.9 Disorder of the skin and subcutaneous tissue, unspecified (principal); S12.9XXA Fracture of neck, unspecified, initial encounter | CPT/HCPCS: 72050; 72072 ==

== ENCOUNTER 2025-04-10 11:35 | Inpatient (IN) | payer MEDICARE, BC, SELFPAY ==
[2025-04-09 20:01] VITALS: BP 141/70
[2025-04-09 20:04] VITALS: BP 141/70
[2025-04-09 20:42] LABS: % Basophils 0.5 % (0-2); % Eosinophils 0.2 % (0-6); % Immature Granulocytes 0.2 % (0-0.5); % Lymphocytes 22.8 % (20.5-51.1); % Monocytes 9.6 % (1.7-9.3); % Neutrophils 66.7 % (42.2-75.2); Absolute Monocytes 0.9 10^3/uL (0.1-0.6); Absolute Neutrophils 5.9 10^3/uL (1.4-6.5); Hematocrit 47.3 % (39.0-52.0); Hemoglobin 15.6 g/dL (13.0-18.0); Mean Corpuscular Hgb 31.8 pg (27.0-31.0); Mean Corpuscular Volume 96.5 fL (80.0-94.0); Mean Platelet Volume 9.4 fL (7.4-10.4); Nucleated Red Blood Cells % 0 % (-); Platelet Count 175 10^3/uL (130-400); Red Cell Dist. Width 14.1 % (11.5-14.5); White Blood Cell Count 8.9 10^3/uL (4.8-10.8)
[2025-04-09 20:58] LABS: ALT (SGPT) 20 U/L (0-50); AST (SGOT) 22 U/L (17-59); Albumin 4.4 g/dl (3.5-5.0); Alkaline Phosphatase 80 U/L (38-126); Blood Urea Nitrogen 26 mg/dl (9-20); Calcium 9.4 mg/dl (8.4-10.2); Carbon Dioxide 25 mmol/L (22-30); Chloride 106 mmol/L (98-107); Glucose 104 mg/dl (70-99); Potassium 4.8 mmol/L (3.5-5.1); Sodium 139 mmol/L (135-145); Total Bilirubin 1.1 mg/dl (0.2-1.3)
[2025-04-09 20:59] LABS: COVID-19 Antigen Negative (Negative)
[2025-04-09 21:00] VITALS: BP 123/65
[2025-04-09] MEDS: NSS 1000 IV (21:36)
[2025-04-09 21:57] LABS: Urine Albumin 2+ (Neg - Trace); Urine Bilirubin Negative (Negative); Urine Character Slightly Cloudy (Clear); Urine Color Amber; Urine Glucose Negative (Negative); Urine Ketone 1+ (Negative); Urine Leukocyte 3+ (Negative); Urine Nitrite Negative (Negative); Urine Occult Blood 4+ (Negative); Urine Urobilinogen Negative (Neg - 1+)
[2025-04-09 22:00] VITALS: BP 129/73
[2025-04-09 22:14] VITALS: BMI 26.1
[2025-04-09 22:42] LABS: Urine Bacteria Moderate (Negative); Urine White Cell >100 /HPF (0-5)
[2025-04-09 23:00] VITALS: BP 142/94
--- NOTE | 2025-04-09 23:05 | ED.GENMED ---
History of Present Illness
General
Chief Complaint: Weakness
Source: spouse
Exam Limitations: none
Time Seen by Provider: 04/09/25 20:29
Nursing documentation reviewed up to this point in time: agreed with
History of Present Illness
History of Present Illness:
Patient to ED for report of increasing weakness, fatigue. states symptoms started this AM. He has a history of dementia. She reports that he has been sleeping all day, unable to ambulate due to weakness. She denies fever/chills, n/v/d.
Brought to ED via EMS for eval
Past History
Past History
ED Past Medical History: CAD, HTN, Hypercholesterolemia and Other (Bowel obstruction, Sensory Tremors)
ED Past Surgical History: Appendectomy and Cardiac (Cardiac stents)
Social History
Tobacco: Former smoker
Alcohol: None
Drug: None
Personal:
Living: with family
Employment: Employed
Review of Systems
Review of Systems
Allergies reviewed?: Yes
All Other Systems: ROS reviewed and negative except as documented in HPI and ROS
Constitutional: Reports fatigue
EENT: Reports no symptoms
Respiratory: Reports no symptoms
Cardiac: Reports no symptoms
ABD/GI: Reports no symptoms
: Reports no symptoms
Musculoskeletal: Reports no symptoms
Skin: Reports no symptoms
Neurological: Reports weakness
Psychiatric: Reports no symptoms
Phy Exam
General Physical Exam
General Presentation: mild distress
General age: appears stated age
General Skin: warm and dry
General Habitus: normal
General Mental: alert
Cardiovascular Exam
Cardiovascular Exam: regular rate/rhythm
Pulmonary Exam
Pulmonary Exam: lungs clear and no respiratory distress
Gastrointestinal Exam
Gastrointestinal Exam: normal bowel sounds, non tender, soft and no organomegaly
Musculoskeletal Exam
Musculoskeletal Exam: full ROM and neuro vasc intact
Skin Exam
Skin Exam: normal color, warm/dry and no rash
Psychiatric Exam
Psychiatric Exam: normal mood/affect
Course
Orders/Labs/Results
Orders:
Orders
04/09/25 20:15
EKG- Treatment ONCE
04/09/25 20:29
CMP [Comprehensive Metabolic Panel] Urgent
COVID-19 Antigen Urgent
Source: Nasal Swab
Complete Blood Count/With Diff Urgent
INF RAPID [Influenza A+B Rapid Molecular] Urgent
VIBHA Source: Nasal Swab
Specimen Description:
04/09/25 21:22
0.9% Sodium Chloride 1000 ml [Nss] 1,000 ml IV BOLUS
04/09/25 21:35
Urinalysis Reflex To Culture Urgent
Date Specimen was Collected: 04/09/25
Time Specimen was Collected: 20:14
Urine Microscopic Reflex Cult Urgent
Urine Culture Urgent
VIBHA Source: U
Specimen Description:
Date Specimen was Collected: 04/09/25
Time Specimen was Collected: 20:14
04/09/25 22:54
Cefepime HCl [Maxipime] 2,000 mg IV NOW STA
04/09/25 23:32
Sterile Water [Sterile Water For Injection] 10 ml .ROUTE .STK-MED ONE
04/09/25 23:46
Admit/Transfer Patient As Directed
Co-Sign Provider:
Level of Care: Observation services
Assign to:: Medical/Surgical
Physician / Group: Tatianna
Diagnosis: UTI
PRN Pain Medication Management As Directed
May give lesser potent ordered pain med per pt: Yes
preference::
Protocol:: Medication orders for pain may be administered in a
manner that supports deferring to patient preference
when the pt is:
- Requesting an ordered lesser potent pain medication.
Least to most potent pain medications are defined
as: acetaminophen < NSAID < tramadol < opioids
(morphine, oxycodone, hydromorphone).
- Requesting a lesser dose of the same medication IF
ORDERED.
- Requesting a less intrusive route of administration
if both routes are prescribed by the provider (PO <
IV).
04/09/25 23:47
Code Status As Directed
Resuscitation Status: Do not resuscitate
Reached after discussion with pt or family/Healthcare POA: Yes
DNR Bracelet Application ONCE
04/10/25 01:17
0.9% Sodium Chloride 1000 ml [Nss] 1,000 ml IV 100 mls/hr
Acetaminophen [Tylenol] 650 mg PO Q4HPRN PRN
Bisacodyl [Dulcolax] 10 mg RECTAL [id number] PRN
Docusate W/Senna [Senokot-S] 1 tablet PO BIDPRN PRN
Heparin 5,000 units SC Q8
Polyethylene Glycol Powder [Miralax] 17 grams PO DAILYPRN PRN
04/10/25 01:17
Activity As Directed
Activity Level: With Assistance
Bladder Scan As Directed
Follow Bladder Retention/Intermittent Cath Algorithm?: Yes
PRN if no void in __ hours: 6
Frequency: Per Retention Algorithm
If Bladder Scan Result >: 400
then:: Straight cath
Orthostatic Vital Signs As Directed
Orthostatic VS Frequency: Daily
Straight Cath As Directed
Frequency: Per Retention Algorithm
Additional Instructions: straight cath as needed per acute urinary retention algorithm for 24 hrs
Additional Instructions: for bladder scan greater than 400 mL
Vital Signs As Directed
Frequency: Per unit guidelines
Pt Eval And Treat Routine
Activity Level: With Assistance
DX Deep Vein Thrombosis Video Routine
04/10/25 02:00
Flush (0.9% Sodium Chloride) [Flush (Nss)] See Dose Instructions IV PER PROTOCOL
04/10/25 05:13
Basic Metabolic Panel IN AM
Complete Blood Count/No Diff IN AM
TSH IN AM
04/10/25 Breakfast
Regular
At Your Request: Limited Participation
04/10/25 08:00
CefTRIAXone [Rocephin] 2,000 mg IV DAILY
Cetirizine HCl [Zyrtec] 10 mg PO DAILY
Citalopram [Celexa] 20 mg PO DAILY
Donepezil HCl [Aricept] 10 mg PO DAILY
Finasteride [Proscar] 5 mg PO DAILY
Memantine HCl [Namenda] 10 mg PO BID
Pantoprazole [Protonix] 40 mg PO DAILY
Sterile Water [Sterile Water For Injection] 20 ml IV Q24H
04/10/25 10:26
Change in Level of Care [Level of Care Change] As Directed
Level of Care: Inpatient admission
Reason for Hospitalization: Patient admitted with generalized weakness secondary to UTI and also on PRANAV.
Hospital level of care crossing 2 midnights.
Expected length of stay greater than two midnights?: Yes
ELOS- Estimated Length of Stay in days: 3
I certify the patient meets the requirements for IP care: Yes
04/10/25 22:00
Atorvastatin [Lipitor] 40 mg PO HS
04/11/25 05:11
BMP [Basic Metabolic Panel] IN AM
CBC/No Diff [Complete Blood Count/No Diff] IN AM
Abnormal Lab Results
04/09/25 04/09/25 04/10/25
20:29 21:35 05:13
RBC 4.54 L 10^6/uL
(4.70-6.10)
MCV 96.5 H fL 95.4 H fL
(80.0-94.0) (80.0-94.0)
MCH 31.8 H pg 32.4 H pg
(27.0-31.0) (27.0-31.0)
Absolute Monos (auto) 0.9 H 10^3/uL
(0.1-0.6)
Monocytes % 9.6 H %
(1.7-9.3)
Chloride 111 H mmol/L
(98-107)
BUN 26 H mg/dl 25 H mg/dl
(9-20) (9-20)
Creatinine 1.6 H mg/dL
(0.7-1.3)
Glucose 104 H mg/dl
(70-99)
Urine Ketones 1+ A
(Negative)
Ur Occult Blood Reflex 4+ A
(Negative)
Leukocyte Esterase Rfl 3+ A
(Negative)
Urine RBC 7-10 A /HPF
(0-2)
Urine WBC (Reflex) >100 A /HPF
(0-5)
Urine Bacteria (Reflex) Moderate A
(Negative)
Urine Albumin (Reflex) 2+ A
(Neg - Trace)
04/10/25 05:13
04/10/25 05:13
Vital Signs
Initial and Last Documented VS:
Initial Vital Signs
Temp Pulse Resp
98.9 F 69 26
04/09/25 19:57 04/09/25 19:57 04/09/25 19:57
Last Documented Vital Signs
Temp Pulse Resp BP Pulse Ox
98.5 F 67 16 132/67 92
04/12/25 14:49 04/12/25 14:49 04/12/25 14:49 04/12/25 14:49 04/12/25 14:49
*Critical Care Note
Total Time (30-74mins, 75-104mins- exclusive of procedures): Not Applicable
ED Attending Note
-
Portions of this chart may have been created with voice recognition software.� Occasional wrong word or��sound alike� substitutions may have occurred due to the inherent limitations of voice recognition software.
Discharge Plan
Departure
Patient Disposition: Admit
Date of Disposition: 04/09/25
Time of Disposition: 23:09
Presentation/result/management discussed w/ accepting MD/DO: Hospitalist
Patient with high blood pressure during this ER visit?: No
Condition: Fair
Discharge Problem:
UTI (urinary tract infection), Weakness
Interventions
Interventions:
*Risk Screen - Suicide Last Done: 04/09/25 19:57
*General Assessment Last Done: 04/09/25 19:57
*Neglect/Abuse Screening Last Done: 04/09/25 19:57
*ED- Fall Risk Assessment Last Done: 04/09/25 19:57
*ED COVID-19 Vaccine History Last Done: 04/09/25 19:57
*Nursing Disposition Last Done: 04/10/25 11:24
ED- Cardiac Assessment Last Done: 04/10/25 10:35
ED- Neurological Assessment Last Done: 04/10/25 10:35
ED- Pulmonary Assessment Last Done: 04/10/25 10:35
Discharge Date and Time
Discharge Date/Time: 04/10/25 11:25
--- NOTE | 2025-04-09 23:25 | HPS.HSE ---
Family Physician
-
Family Physician: Johny Fernandez
Chief Complaint
-
Weakness
History of Present Illness
This is an 84-year-old was past medical history is significant for dementia, BPH, hyperlipidemia, GERD, CAD status post stenting presenting to the emergency department from home via spouse for increasing weakness throughout the day.
Spouse provided history as patient cannot provide much detail. She stated that normally the patient is often somnolent and sleeps about 20 hours a day and is generally weak and ataxic but can ambulate with help. When he arose this morning he was
found to be incontinent completely wetting the bed. His diapers was completely soaked. He then became more disoriented as the day progressed. Became more somnolent difficult to arouse and then returning back to sleep with any attempted
conversation. Later on in the evening the spouse reported that she cannot even get him up.
In the emergency department the patient was afebrile, blood pressure was 141/70 with a pulse of 61 and was satting at 7% on room air.
CBC was unremarked. Electrolytes were normal. Creatinine 1.6, up from around 1.0 1 year ago. Influenza test was negative. COVID test was negative. UA was quite positive with positive leukocyte esterase WBCs and bacteria. He had no hypoxia and
no pulmonary symptoms.
Medical History
Past Medical History
Past Medical History: Reports Other
Additional Past Medical History:
Coronary Artery Disease s/p Stents
Essential Hypertension
Hyperlipidemia
Dementia
Depression
BPH
Past Surgical History: Reports Other
Additional Past Surgical History:
Appendectomy
Cardiac Stents
Social History
Tobacco: Former Smoker
Alcohol: None
Personal:
Living: With Family
Family History
Family History: Not pertinent
Allergies / Home Medications
Allergies reflects when Allergies were last updated in [facility].
Home Medications with original date entered in [facility]
Allergy/Medication List:
Allergies
Allergy/AdvReac Type Severity Reaction Status Date / Time
venom-honey bee Allergy Swelling Verified 01/01/24 20:17
[bee venom (honey bee)]
Home Medications
aspirin 81 mg tablet,delayed release 81 mg PO HS Blood clot prevention/tx 08/05/14
ascorbic acid (vitamin C) 1,000 mg tablet (Vitamin C) 1,000 mg PO BID Supplement 05/15/22
atorvastatin 40 mg tablet 40 mg PO HS High cholesterol 05/15/22
cholecalciferol (vitamin D3) 50 mcg (2,000 unit) tablet 2,000 units PO DAILY Supplement 05/15/22
memantine 10 mg tablet 10 mg PO BID dementia 05/15/22
pantoprazole 40 mg tablet,delayed release 40 mg PO BID 28 days #56 tabs 05/19/22
multivitamin 1 tab PO DAILY Supplement 01/27/23
zinc acetate 50 mg (zinc) capsule 50 mg PO DAILY Supplement 01/27/23
acetaminophen 325 mg tablet (Tylenol) 650 mg PO Q6H PRN fever, mild pain 01/01/24
donepezil 10 mg tablet 10 mg PO DAILY dementia 01/01/24
cetirizine 10 mg tablet (Aller-Yvonne) 10 mg PO DAILY 01/24/24
citalopram 20 mg tablet (Celexa) 20 mg PO DAILY 01/24/24
docusate sodium 100 mg capsule (Colace) 100 mg PO BID 01/24/24
finasteride 5 mg tablet 5 mg PO DAILY 01/24/24
Review of Systems
-
Unable to obtain full review of systems at this time due to: Dementia
Physical Exam
Vital Signs
Vital Signs
Temp Pulse Resp BP Pulse Ox
98.9 F 61 16 141/70 97
04/09/25 19:57 04/09/25 20:04 04/09/25 20:04 04/09/25 20:04 04/09/25 22:00
Physical Exam
General: Well Developed, Well Nourished and No Apparent Distress
HEENT: NormoCephalic, Anicteric, Moist mucous membranes and Atraumatic
Respiratory: Clear
Cardiac: S1/S2 and Regular Rhythm
GI: Soft, Non Tender, Non Distended and Normal Bowel Sounds
Rectal: Deferred by Provider
Genito-urinary: Deferred by me
Musculoskeletal: No Clubbing, No Cyanosis and No Edema
Skin: Warm
Neuro: Nonfocal/grossly intact and Other (arousable and interactive, oriented to person only. Able to ambulate by himself and used commode without help.)
Hematologic/Lymphatic: No Lymphadenopathy
Psych: Calm
Laboratory Results
-
04/09/25 20:29
04/09/25 20:29
Laboratory Results
Total Bilirubin 1.1 mg/dl (0.2-1.3) 04/09/25 20:
AST 22 U/L (17-59) 04/09/25 20:29
ALT 20 U/L (0-50) 04/09/25 20:29
Alkaline Phosphatase 80 U/L (38-126) 04/09/25 20:29
Data Reviewed
-
Lab Data: Labs Reviewed by me
Old Records: Reviewed
Impression/Plan
-
IMPRESSION:
84-year-old with past medical history significant for dementia, BPH, CAD and GERD who presents to emergency department from home with weakness, somnolence and some incontinence. In the emergency department the patient had bladder scan that was
negative without any residual. UA was positive. Labs otherwise unremarkable. Vital signs are stable. Initially was somnolent but arousable and after a liter of fluid was able to get up on his own and use the commode.
PLAN:
1. UTI -history of BPH, has had a UTI before about 1 year ago. UA is positive here with leukocyte esterase
� Admit to MedSurg observation
� Urine culture sent
� IV ceftriaxone for now
� Monitor ins and outs
� Continue finasteride
2. Weakness -suspect secondary to acute urinary tract infection
- Treatment for UTI as above
- Continue hydration
- Orthostatic vital signs
- PT evaluation
3. Dementia
- Continue his memantine and donepezil
Continue his citalopram
4. PRANAV -creatinine 1.6, baseline was around 1 last year. BUN is unchanged.
-Bladder scan does not show any bladder retention, continue to monitor for retention at this time
-Hydration overnight
- Patient is not on any nephrotoxins, avoid nephrotoxins
DVT PPX -subcutaneous heparin
CODE STATUS - DNR
[2025-04-09] MEDS: MAXIPIME 2000 MG IV (23:40)
[2025-04-10] VITALS (9 sets, daily range): BP systolic 121–157; BP diastolic 67–83; PULSE 78; O2SAT 95
[2025-04-10] MEDS: HEPARIN 5000 UNITS SC ×3 (02:06→15:43)
[2025-04-10] MEDS: NSS 1000 IV (02:09)
[2025-04-10 06:21] LABS: Hematocrit 43.3 % (39.0-52.0); Hemoglobin 14.7 g/dL (13.0-18.0); Mean Corp Hgb Conc. 33.9 g/dL (33.0-37.0); Mean Corpuscular Hgb 32.4 pg (27.0-31.0); Mean Corpuscular Volume 95.4 fL (80.0-94.0); Mean Platelet Volume 9.6 fL (7.4-10.4); Platelet Count 153 10^3/uL (130-400); Red Blood Cell Count 4.54 10^6/uL (4.70-6.10); Red Cell Dist. Width 14.1 % (11.5-14.5)
[2025-04-10 06:48] LABS: Blood Urea Nitrogen 25 mg/dl (9-20); Calcium 8.9 mg/dl (8.4-10.2); Carbon Dioxide 27 mmol/L (22-30); Chloride 111 mmol/L (98-107); Estimated Creatinine Clearance 46 ml/min; Glucose 81 mg/dl (70-99); Potassium 4.3 mmol/L (3.5-5.1); Sodium 143 mmol/L (135-145)
[2025-04-10 07:14] LABS: TSH 0.81 uIU/ml (0.47-4.68)
[2025-04-10] MEDS: ROCEPHIN 2000 MG IV (08:26)
[2025-04-10] MEDS: STERILE WATER FOR INJECTION 20 ML IV (08:26)
[2025-04-10] MEDS: CELEXA 20 MG PO (08:27)
[2025-04-10] MEDS: PROTONIX 40 MG PO (08:28)
[2025-04-10] MEDS: ZYRTEC 10 MG PO (08:29)
[2025-04-10] MEDS: ARICEPT 10 MG PO (08:29)
[2025-04-10] MEDS: NAMENDA 10 MG PO ×2 (08:29→21:24)
[2025-04-10] MEDS: PROSCAR 5 MG PO (08:30)
--- NOTE | 2025-04-10 09:50 | EDRN ---
Dr. Khanna in to see pt.
--- NOTE | 2025-04-10 10:12 | W.PN.HOSP.TC ---
Today's Communication/Plan
-
Continue with your antibiotics. Follow-up culture data.
Continue with IV fluids.
Changed to inpatient level of care.
Assessment / Plan
Assessment / Plan
IMPRESSION:
84-year-old with past medical history significant for dementia, BPH, CAD and GERD who presents to emergency department from home with weakness, somnolence and some incontinence. In the emergency department the patient had bladder scan that was
negative without any residual. UA was positive. Labs otherwise unremarkable. Vital signs are stable. Initially was somnolent but arousable and after a liter of fluid was able to get up on his own and use the commode.
PLAN:
1. UTI -history of BPH, has had a UTI before about 1 year ago. UA is positive here with leukocyte esterase
� CW MedSurg but switch to inpt as he would need another night stay -waiting cx data and PT eval.
� Urine culture sent
�cw IV ceftriaxone for now
� Monitor ins and outs
� Continue finasteride
2. Weakness -suspect secondary to acute urinary tract infection
- Treatment for UTI as above
- Continue hydration
- Orthostatic vital signs
- PT evaluation
3. Dementia
- Continue his memantine and donepezil
Continue his citalopram
No behavioral issues so far
4. PRANAV -creatinine 1.6, baseline was around 1 last year. BUN is unchanged.
-Bladder scan does not show any bladder retention, continue to monitor for retention at this time
- Improving - 1.3 today -cw IV fluids at low dose today
- Patient is not on any nephrotoxins, avoid nephrotoxins
DVT PPX -subcutaneous heparin
CODE STATUS - DNR
Anticipated Discharge: Within 24 hours
Subjective/Interval History
-
Date of Service: April 10, 2025
Patient resting comfortably in his bed in the ER. He is alert and oriented to place.
He feels weak still. His main urinary complaint is weak stream. He denies any dysuria or frequency. He had no answer to incontinence question. He thinks he sees a urologist but could not name. He thinks he also had a urinary infection in the
past but no urinary retention requiring Montgomery catheter.
Denies any nausea vomiting.
No fever chills.
Objective Data
-
Labs:
Laboratory Results
04/10/25
05:13
WBC 9.0
Hgb 14.7
Hct 43.3
Plt Count 153
Sodium 143
Potassium 4.3
Chloride 111 H
Carbon Dioxide 27
BUN 25 H
Creatinine 1.3
Glucose 81
Calcium 8.9
Vital Signs:
Vital Signs
Temp Pulse Resp BP Pulse Ox
98.8 F 70 17 157/76 98
04/10/25 07:14 04/10/25 07:14 04/10/25 07:14 04/10/25 07:14 04/10/25 07:14
Review of Systems
-
Respiratory: Denies Trouble Breathing
Cardiac: Denies Chest Pain
Abdomen/GI: Denies Abdominal Pain
Neuro: Denies Dizzy
Physical Exam
-
General: No Apparent Distress
Respiratory: Non Labored Respirations; Negative Accessory Resp Muscle Use
Cardiac: Regular Rhythm and S1/S2; Negative Tachycardic
GI: Soft, Nontender, Nondistended and Normal Bowel Sounds
Neuro: AO x 3 (But not to the day, month or the year.) and No Motor Deficits
Psych: Calm
Data Reviewed
-
Labs: Labs Reviewed by me
--- NOTE | 2025-04-10 10:34 | EDRN ---
Physical therapy in room w/ pt at this time.
--- NOTE | 2025-04-10 10:41 | EDRN ---
Pt OOB w/ PT at this time and walker.
--- NOTE | 2025-04-10 11:45 | TRANSFER ---
Received pt from ED around 1130 this AM. Pt ambulated with RW and x2 assist from stretcher to bed. No pain reported at this time. Pt oriented to room and staff. All needs met at this time.
[2025-04-10] MEDS: DESENEX/MITRAZOL/ZEASORB 1 APPLIC TOPICAL ×2 (15:42→21:24)
--- NOTE | 2025-04-10 19:32 | PTCARENOTE ---
Pt arrived to unit around 1430 from ED. Pt assisted from stretcher to bed with x2 assist and RW. Oreinted to room and staff. All needs met at this time. No pain reported. Plan of care ongoing.
[2025-04-10] MEDS: LIPITOR 40 MG PO (21:24)
[2025-04-11] MEDS: HEPARIN 5000 UNITS SC ×3 (01:09→17:08)
[2025-04-11 05:41] LABS: Hematocrit 43.9 % (39.0-52.0); Hemoglobin 15.3 g/dL (13.0-18.0); Mean Corp Hgb Conc. 34.9 g/dL (33.0-37.0); Mean Corpuscular Hgb 32.9 pg (27.0-31.0); Mean Corpuscular Volume 94.4 fL (80.0-94.0); Mean Platelet Volume 9.4 fL (7.4-10.4); Platelet Count 150 10^3/uL (130-400); Red Blood Cell Count 4.65 10^6/uL (4.70-6.10); White Blood Cell Count 9.1 10^3/uL (4.8-10.8)
[2025-04-11 06:07] LABS: Blood Urea Nitrogen 23 mg/dl (9-20); Carbon Dioxide 24 mmol/L (22-30); Chloride 109 mmol/L (98-107); Estimated Creatinine Clearance 54 ml/min; Glucose 88 mg/dl (70-99); Potassium 4.4 mmol/L (3.5-5.1); Sodium 142 mmol/L (135-145); eGFR > 60.00
[2025-04-11 07:33] VITALS: BP 161/78
[2025-04-11] MEDS: CELEXA 20 MG PO (07:45)
[2025-04-11] MEDS: PROSCAR 5 MG PO (07:45)
[2025-04-11] MEDS: ARICEPT 10 MG PO (07:45)
[2025-04-11] MEDS: ZYRTEC 10 MG PO (07:45)
[2025-04-11] MEDS: PROTONIX 40 MG PO (07:45)
[2025-04-11] MEDS: NAMENDA 10 MG PO ×2 (07:45→21:47)
[2025-04-11] MEDS: ROCEPHIN 2000 MG IV (07:46)
[2025-04-11] MEDS: DESENEX/MITRAZOL/ZEASORB 1 APPLIC TOPICAL ×2 (07:47→21:47)
[2025-04-11] MEDS: STERILE WATER FOR INJECTION 20 ML IV (07:47)
--- NOTE | 2025-04-11 13:49 | W.PN.HOSP.TC ---
Today's Communication/Plan
-
Continue ceftriaxone
Hold further IV fluids
DC in a.m. likely
Assessment / Plan
Assessment / Plan
IMPRESSION:
84-year-old with past medical history significant for dementia, BPH, CAD and GERD who presents to emergency department from home with weakness, somnolence and some incontinence. In the emergency department the patient had bladder scan that was
negative without any residual. UA was positive. Labs otherwise unremarkable. Vital signs are stable. Initially was somnolent but arousable and after a liter of fluid was able to get up on his own and use the commode.
PLAN:
1. UTI -history of BPH, has had a UTI before about 1 year ago. UA is positive here with leukocyte esterase
� Urine culture shows GNB - await identification
� cw IV ceftriaxone for now
� Monitor ins and outs
� Continue finasteride
2. Weakness -suspect secondary to acute urinary tract infection
- Treatment for UTI as above
- Improved
- PT evaluation -recs SNF
3. Dementia
- Continue his memantine and donepezil
Continue his citalopram
No behavioral issues so far
4. PRANAV -creatinine 1.6, baseline was around 1 last year. BUN is unchanged.
-Bladder scan does not show any bladder retention, continue to monitor for retention at this time
- Improving - 1.1 today -hold further IV fluids
- Patient is not on any nephrotoxins, avoid nephrotoxins
DVT PPX -subcutaneous heparin
CODE STATUS - DNR
DC in am to SNF
Anticipated Discharge: Within 24 hours
Subjective/Interval History
-
Date of Service: April 11, 2025
' Can i go home?' i feel better
Improved weakness.
Denies any fever chills. Denies any dysuria. His urinary stream has been weaker for a while now and that has not changed. No urinary retention.
No nausea vomiting. Tolerating diet.
Denies shortness of breath or chest pain.
Objective Data
-
Labs:
Laboratory Results
04/11/25
05:11
WBC 9.1
Hgb 15.3
Hct 43.9
Plt Count 150
Sodium 142
Potassium 4.4
Chloride 109 H
Carbon Dioxide 24
BUN 23 H
Creatinine 1.1
Glucose 88
Calcium 9.0
Vital Signs:
Vital Signs
Temp Pulse Resp BP Pulse Ox
97.5 F 60 14 161/78 94
04/11/25 07:33 04/11/25 07:33 04/11/25 07:33 04/11/25 07:33 04/11/25 07:33
I&O
04/10/25 04/11/25 04/12/25
06:59 06:59 06:59
Intake Total 240 / 240
Output Total 525 / 525
Balance -285 / -285
Physical Exam
-
General: Comfortable
Respiratory: Non Labored Respirations; Negative Accessory Resp Muscle Use
Cardiac: Regular Rhythm and S1/S2; Negative Tachycardic
GI: Soft and Nontender
Neuro: AO x 3
Psych: Calm
Data Reviewed
-
Labs: Labs Reviewed by me
--- NOTE | 2025-04-11 14:26 | CM ---
Alert awake oriented patient who lives with his Afua in a 1 story home with 1 step to enter. He is independent in all activities of daily living.He does not drive .He was offered VN he is unsure on need..
Pt had VN hx / No SNF history
Pharmacy [facility]
PCP DR Fernandez
PLAN Will need OT PT evals
[2025-04-11 15:00] VITALS: BP 174/89
[2025-04-11] MEDS: LIPITOR 40 MG PO (21:47)
[2025-04-11 23:45] VITALS: BP 158/78
[2025-04-12] MEDS: HEPARIN 5000 UNITS SC ×4 (00:09→23:02)
[2025-04-12 07:32] VITALS: BP 152/86
[2025-04-12] MEDS: CELEXA 20 MG PO (09:07)
[2025-04-12] MEDS: PROTONIX 40 MG PO (09:07)
[2025-04-12] MEDS: PROSCAR 5 MG PO (09:08)
[2025-04-12] MEDS: STERILE WATER FOR INJECTION 20 ML IV (09:08)
[2025-04-12] MEDS: ROCEPHIN 2000 MG IV (09:08)
[2025-04-12] MEDS: ZYRTEC 10 MG PO (09:08)
[2025-04-12] MEDS: DESENEX/MITRAZOL/ZEASORB 1 APPLIC TOPICAL ×2 (09:08→19:43)
[2025-04-12] MEDS: NAMENDA 10 MG PO ×2 (09:08→19:43)
[2025-04-12] MEDS: ARICEPT 10 MG PO (09:08)
[2025-04-12 11:20] VITALS: BMI 24.8
[2025-04-12 11:37] VITALS: BP 124/75; BP 136/71; PULSE 76; O2SAT 93
--- NOTE | 2025-04-12 13:18 | W.PN.HOSP.TC ---
Today's Communication/Plan
-
DC
Assessment / Plan
Assessment / Plan
IMPRESSION:
84-year-old with past medical history significant for dementia, BPH, CAD and GERD who presents to emergency department from home with weakness, somnolence and some incontinence. In the emergency department the patient had bladder scan that was
negative without any residual. UA was positive. Labs otherwise unremarkable. Vital signs are stable. Initially was somnolent but arousable and after a liter of fluid was able to get up on his own and use the commode.
PLAN:
1. UTI -history of BPH, has had a UTI before about 1 year ago. UA is positive here with leukocyte esterase
� Urine culture shows Klebsiella pneumonia. Switch to oral Keflex on discharge
� cw IV ceftriaxone for now
� Continue finasteride
2. Weakness -suspect secondary to acute urinary tract infection
- Treatment for UTI as above
- Improved
- PT evaluation -recs SNF
3. Dementia
- Continue his memantine and donepezil
Continue his citalopram
No behavioral issues so far
4. PRANAV -creatinine 1.6, baseline was around 1 last year. BUN is unchanged.
-Bladder scan does not show any bladder retention, continue to monitor for retention at this time
- Improving - Cr 1.1
- Patient is not on any nephrotoxins, avoid nephrotoxins
DVT PPX -subcutaneous heparin
CODE STATUS - DNR
Medically stable for DC to SNF
Total time of DC 32 min
DW Daughter and updated the dx,tx and DC plan. She is in agreement with SNF.
Pt is also agreeable to SNF
Anticipated Discharge: Today
Subjective/Interval History
-
Date of Service: April 12, 2025
Improved weakness. Feels better. Voicing no specific complaints.
Denies any fever or chills.
Weak stream but no retention symptoms are dysuria.
No nausea vomiting. Tolerating diet. Denies any shortness of breath.
Objective Data
-
Vital Signs:
Vital Signs
Temp Pulse Resp BP Pulse Ox
97.9 F 65 16 152/86 94
04/12/25 07:32 04/12/25 07:32 04/12/25 07:32 04/12/25 07:32 04/12/25 07:32
I&O
04/11/25 04/12/25 04/13/25
06:59 06:59 06:59
Intake Total 240 / 240 780 / 780
Output Total 525 / 525 600 / 600
Balance -285 / -285 180 / 180
Review of Systems
-
Neuro: Denies Dizzy
Physical Exam
-
General: No Apparent Distress
Respiratory: Non Labored Respirations; Negative Accessory Resp Muscle Use
Cardiac: Regular Rhythm and S1/S2
GI: Soft and Nontender
Neuro: AO x 3
Psych: Calm
Data Reviewed
-
Labs: Labs Reviewed by me (ucx data)
--- NOTE | 2025-04-12 13:40 | PN.CDI ---
CDI
- -
CDI:
Physician Documentation Request
Admit Date: 04/10/25 11:35
Dear Doctor Jey,
Patient admitted with UTI.
H&P,' ....past medical history is significant for dementia....He then became more disoriented as the day progressed.'
Please provide in your note the diagnosis associated with the above findings:
Metabolic encephalopathy due to UTI
Toxic metabolic encephalopathy due to UTI
Other
Use of terms such as suspected, likely, concern for, or probable (associated with a specific diagnosis that is being evaluated, monitored, or treated as if it exists) are acceptable and can be coded in the inpatient setting, when documented at the
time of discharge.
Thank you,
Dianna ELLIS,RN,CCDS
CDI Specialist
Available via [place] text
Please use your independent medical judgment in providing your response.
[2025-04-12 14:49] VITALS: BP 132/67
--- NOTE | 2025-04-12 16:03 | CM ---
Chart reviewed; PT/OT notes indicate need for SNF. Pt will have 3 day stay for SNF transfer on 04/13/2025. SNF referrals being sent today for possible transfer tomorrow, as pt is medically cleared.
CM to follow up in AM to determine options for SNF transfer.
[2025-04-12] MEDS: LIPITOR 40 MG PO (21:25)
[2025-04-12 23:00] VITALS: BP 146/85
[2025-04-13 07:23] VITALS: BP 160/83
[2025-04-13] MEDS: ROCEPHIN 2000 MG IV (08:10)
[2025-04-13] MEDS: HEPARIN 5000 UNITS SC (08:10)
[2025-04-13] MEDS: STERILE WATER FOR INJECTION 20 ML IV (08:10)
[2025-04-13] MEDS: ZYRTEC 10 MG PO (08:11)
[2025-04-13] MEDS: ARICEPT 10 MG PO (08:11)
[2025-04-13] MEDS: PROSCAR 5 MG PO (08:11)
[2025-04-13] MEDS: PROTONIX 40 MG PO (08:11)
[2025-04-13] MEDS: DESENEX/MITRAZOL/ZEASORB 1 APPLIC TOPICAL (08:11)
[2025-04-13] MEDS: NAMENDA 10 MG PO (08:11)
[2025-04-13] MEDS: CELEXA 20 MG PO (08:11)
--- NOTE | 2025-04-13 10:20 | CM ---
Addendum entered by Genie Bergeron 04/13/25 11:37:
Per Rebekah patient in copay days, daughter updated and stated has not been anywhere in last 90 days. Daughter to call [facility] admissions directly.
Addendum entered by Genie Bergeron 04/13/25 10:50:
Daughter accepted [facility]. CM notified Liaison Rebekah. Please call [phone]/fax [phone]. Pending time for ambulance, transport forms completed and provided to secretary bookkeeper. CM reviewed IMM with patient daughter she is in agreement
with patient signing form at this time. CM will continue to follow for discharge planning needs.
Plan: SNF [facility]
Original Note:
Patient seen at bedside on . Referrals sent and accepted at [facility], [facility], [facility] and [facility]. Daughter considering and talking to her mother and will call CM back as soon as possible. CM will continue to follow for
discharge planning needs.
Plan; SNF
[2025-04-13 11:59] LABS: COVID-19 Antigen Negative (Negative)
--- NOTE | 2025-04-13 14:07 | W.PN.HOSP.TC ---
Addendum entered and electronically signed by Ba Khanna MD 04/14/25 16:45:
Toxic metabolic encephalopathy due to UTI
Original Note:
Today's Communication/Plan
-
dc
Assessment / Plan
Assessment / Plan
IMPRESSION:
84-year-old with past medical history significant for dementia, BPH, CAD and GERD who presents to emergency department from home with weakness, somnolence and some incontinence. In the emergency department the patient had bladder scan that was
negative without any residual. UA was positive. Labs otherwise unremarkable. Vital signs are stable. Initially was somnolent but arousable and after a liter of fluid was able to get up on his own and use the commode.
PLAN:
1. UTI -history of BPH, has had a UTI before about 1 year ago. UA is positive here with leukocyte esterase
� Urine culture shows Klebsiella pneumonia. Switch to oral Keflex on discharge
� cw IV ceftriaxone for now
� Continue finasteride
2. Weakness -suspect secondary to acute urinary tract infection
- Treatment for UTI as above
- Improved
- PT evaluation -recs SNF
3. Dementia
- Continue his memantine and donepezil
Continue his citalopram
No behavioral issues so far
4. PRANAV -creatinine 1.6, baseline was around 1 last year. BUN is unchanged.
-Bladder scan does not show any bladder retention, continue to monitor for retention at this time
- Improving - Cr 1.1
- Patient is not on any nephrotoxins, avoid nephrotoxins
DVT PPX -subcutaneous heparin
CODE STATUS - DNR
Medically stable for DC to SNF
Total time of DC 32 min
DW Daughter 04/12 and updated the dx,tx and DC plan. She is in agreement with SNF.
Pt is also agreeable to SNF
Remains medically stable for discharge to rehab.
Total time of discharge 32-minute
Anticipated Discharge: Today
Subjective/Interval History
-
Date of Service: April 13, 2025
No overnight events.
Voices no specific complaints. Tolerating antibiotics without any nausea vomiting. No changes in the urinary symptoms.
No shortness of breath or chest pain.
Objective Data
-
Vital Signs:
Vital Signs
Temp Pulse Resp BP Pulse Ox
98.2 F 59 16 160/83 92
04/13/25 07:23 04/13/25 07:23 04/13/25 07:23 04/13/25 07:23 04/13/25 07:23
I&O
04/12/25 04/13/25 04/14/25
06:59 06:59 06:59
Intake Total 780 / 780 570 / 570
Output Total 600 / 600 700 / 700
Balance 180 / 180 -130 / -130
Physical Exam
-
General: Comfortable
Respiratory: Non Labored Respirations; Negative Accessory Resp Muscle Use
Cardiac: Regular Rhythm and S1/S2
GI: Soft
Neuro: AO x 3
[2025-04-13 14:15] VITALS: BP 134/73
--- NOTE | 2025-04-14 16:04 | W.DCSUMMARY ---
Discharge Summary
Discharge Data
Date of Admission: 04/10/25
Date of Discharge: 04/13/25
-
Pending Results: No
Hospital Course
Primary diagnosis:
Urinary tract infection with Klebsiella pneumonia
Acute kidney injury suspected prerenal
Weakness suspected secondary to infection
Secondary diagnosis:
Dementia without behavioral issues
Hospital course:
Patient with dementia, BPH, CAD and GERD presented with increasing weakness, somnolence and some incontinence of urine. His urinalysis was positive and culture grew Klebsiella pneumonia. He also noted to be in PRANAV with creatinine of 1.6 which was
suspected prerenal and improved with fluids to 1.1. There was no retention issues here. He was initially put on ceftriaxone and then switched to oral Keflex on discharge. Prior to discharge was seen by PT who recommended to rehab and he was
discharged to rehab today.
Consultants on board:
Discharge Plan
-
Patient Disposition: Intermediate/SNF
Discharge Diagnosis/Procedures: Weakness, UTI with Klebsiella pneumonia, PRANAV suspected dehydration
Diet: Regular
Activity: As tolerated
Driving Restrictions: Not until seen by your Dr
Bathing Restrictions: None
Other Services: PT and OT
Referrals:
Johny Fernandez MD [Family Provider] -
Prescriptions:
New
cephalexin 500 mg capsule
500 mg PO QID Qty: 16 0RF
Rx Instructions:
FOR 4 DAYS
Continued
aspirin 81 MG tablet,delayed release (DR/EC)
81 mg PO HS
atorvastatin 40 MG tablet
40 mg PO HS
ascorbic acid (vitamin C) [Vitamin C] 1,000 MG tablet
1,000 mg PO BID
memantine 10 MG tablet
10 mg PO BID
cholecalciferol (vitamin D3) 2,000 UNITS tablet
2,000 units PO DAILY
multivitamin Tablet
1 tab PO DAILY
zinc acetate 50 mg (zinc) Capsule
50 mg PO DAILY
acetaminophen [Tylenol] 325 mg Tablet
650 mg PO Q6H PRN (Reason: fever, mild pain)
donepezil 10 mg Tablet
10 mg PO DAILY
cetirizine [Aller-Yvonne] 10 mg Tablet
10 mg PO DAILY
citalopram [Celexa] 20 mg Tablet
20 mg PO DAILY
docusate sodium [Colace] 100 mg Capsule
100 mg PO BID
finasteride 5 mg Tablet
5 mg PO DAILY
pantoprazole 40 mg Tablet,Delayed Release (Dr/Ec)
40 mg PO DAILY Qty: 0 0RF
Discharge Orders:
Discharge Patient (As Directed); Ordered 04/12/25
Ordered By: Ba Khanna
Discharge Date and Time
Discharge Date/Time: 04/13/25 14:27
Print Language: PORTUGUESE
== END 2025-04-13 14:27 | DRG 682 ==
LOC: 3 WEST ACU 11:35
PROVIDERS: Student in an Organized Health Care Education/Training Program; ADMITTING PHYSICIAN Internal Medicine; ATTENDING PHYSICIAN Internal Medicine; EMERGENCY PHYSICIAN Emergency Medicine; FAMILY PHYSICIAN Internal Medicine
DX: N17.9 Acute kidney failure, unspecified (principal); G92.8 Other toxic encephalopathy; N39.0 Urinary tract infection, site not specified; F03.93 Unspecified dementia, unspecified severity, with mood disturbance; F32.A Depression, unspecified; Z66 Do not resuscitate; Z87.891 Personal history of nicotine dependence; Z11.52 Encounter for screening for COVID-19; Z79.899 Other long term (current) drug therapy
CPT/HCPCS: 80048; 80053; 81003; 81015; 84443; 85025; 85027; 87077; 87086; 87186; 87502; 87811; 97110; 97116; 97163

== ENCOUNTER 2025-05-19 11:13 | Emergency (ER) | payer MEDICARE, BC, SELFPAY ==
[2025-05-19] VITALS (8 sets, daily range): BP systolic 126–188; BP diastolic 54–90; PULSE 62–67; BMI 25.9
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
[2025-05-19 11:59] LABS: % Basophils 1.2 % (0-2); % Eosinophils 1.5 % (0-6); % Immature Granulocytes 0.3 % (0-0.5); % Lymphocytes 21.5 % (20.5-51.1); % Monocytes 6.6 % (1.7-9.3); % Neutrophils 68.9 % (42.2-75.2); Absolute Basophils 0.1 10^3/uL (0-0.2); Absolute Eosinophils 0.1 10^3/uL (0-0.7); Absolute Monocytes 0.6 10^3/uL (0.1-0.6); Absolute Neutrophils 6.5 10^3/uL (1.4-6.5); Hematocrit 46.7 % (39.0-52.0); Hemoglobin 16.1 g/dL (13.0-18.0); Mean Corp Hgb Conc. 34.5 g/dL (33.0-37.0); Mean Corpuscular Hgb 33.1 pg (27.0-31.0); Mean Corpuscular Volume 96.1 fL (80.0-94.0); Mean Platelet Volume 9.3 fL (7.4-10.4); Nucleated Red Blood Cells % 0 % (-); Platelet Count 291 10^3/uL (130-400); Red Blood Cell Count 4.86 10^6/uL (4.70-6.10); Red Cell Dist. Width 13.4 % (11.5-14.5); White Blood Cell Count 9.4 10^3/uL (4.8-10.8)
[2025-05-19 12:26] LABS: ALT (SGPT) 21 U/L (0-50); AST (SGOT) 21 U/L (17-59); Albumin 4.1 g/dl (3.5-5.0); Alkaline Phosphatase 75 U/L (38-126); Blood Urea Nitrogen 22 mg/dl (9-20); Calcium 9.8 mg/dl (8.4-10.2); Carbon Dioxide 29 mmol/L (22-30); Chloride 106 mmol/L (98-107); Creatine Phosphokinase 33 U/L (55-170); Estimated Creatinine Clearance 62 ml/min; Glucose 107 mg/dl (70-99); Potassium 4.7 mmol/L (3.5-5.1); Sodium 143 mmol/L (135-145); Total Bilirubin 1.1 mg/dl (0.2-1.3); Total Protein 7.6 g/dl (6.3-8.2); eGFR > 60.00
[2025-05-19] MEDS: NSS 500 IV (12:34)
[2025-05-19 13:06] LABS: Urine Albumin Negative (Neg - Trace); Urine Bilirubin Negative (Negative); Urine Character Clear (Clear); Urine Color Yellow; Urine Glucose Negative (Negative); Urine Ketone Negative (Negative); Urine Leukocyte Negative (Negative); Urine Nitrite Negative (Negative); Urine Occult Blood Negative (Negative); Urine Specific Gravity 1.015 (<1.030); Urine Urobilinogen Negative (Neg - 1+)
== END 2025-05-19 15:11 | disposition home or self-care (01) ==
LOC: EMR 11:13
PROVIDERS: Physician Assistant; EMERGENCY PHYSICIAN Emergency Medicine; FAMILY PHYSICIAN Internal Medicine
DX: S01.01XA Laceration without foreign body of scalp, initial encounter (principal); W18.09XA Striking against other object with subsequent fall, initial encounter; E78.00 Pure hypercholesterolemia, unspecified; I25.10 Atherosclerotic heart disease of native coronary artery without angina pectoris; I10 Essential (primary) hypertension; G31.83 Neurocognitive disorder with Lewy bodies; F02.80 Dementia in other diseases classified elsewhere, unspecified severity, without behavioral disturbance, psychotic disturbance, mood disturbance, and anxiety; Z87.891 Personal history of nicotine dependence; Z95.5 Presence of coronary angioplasty implant and graft
CPT/HCPCS: 12001; 96360; 99284; 70450; 72125; 80053; 81003; 82550; 85025; 93005

== ENCOUNTER 2025-06-13 15:06 | Emergency (ER) | payer MEDICARE, BC, SELFPAY ==
[2025-06-13 15:07] VITALS: BMI 26.5
[2025-06-13 15:08] VITALS: BP 149/98
[2025-06-13 15:10] VITALS: BP 149/98
[2025-06-13 15:33] LABS: Hematocrit 44.0 % (39.0-52.0); Hemoglobin 14.8 g/dL (13.0-18.0); Mean Corp Hgb Conc. 33.6 g/dL (33.0-37.0); Mean Corpuscular Volume 95.7 fL (80.0-94.0); Nucleated Red Blood Cells % 0 % (-); Platelet Count 156 10^3/uL (130-400); Red Cell Dist. Width 14.2 % (11.5-14.5)
[2025-06-13 15:47] LABS: ALT (SGPT) 26 U/L (0-50); AST (SGOT) 27 U/L (17-59); Albumin 3.9 g/dl (3.5-5.0); Alkaline Phosphatase 83 U/L (38-126); Blood Urea Nitrogen 15 mg/dl (9-20); Calcium 9.4 mg/dl (8.4-10.2); Carbon Dioxide 28 mmol/L (22-30); Chloride 106 mmol/L (98-107); Estimated Creatinine Clearance 55 ml/min; Glucose 82 mg/dl (70-99); Potassium 4.4 mmol/L (3.5-5.1); Sodium 136 mmol/L (135-145); Total Protein 6.7 g/dl (6.3-8.2); eGFR > 60.00
[2025-06-13 15:48] LABS: Urine Character Clear (Clear)
[2025-06-13 15:58] LABS: Urine Squamous Cell 0-2 /LPF (Few)
[2025-06-13 15:59] LABS: Urine Red Blood Cell 30-40 /HPF (0-2); Urine White Cell 0-2 /HPF (0-5)
[2025-06-13 16:00] VITALS: BP 148/74
[2025-06-13 17:00] VITALS: BP 161/79
--- NOTE | 2025-06-13 19:18 | ED.GENMED ---
History of Present Illness
General
Chief Complaint: Weakness
Source: patient and spouse
Time Seen by Provider: 06/13/25 15:20
History of Present Illness
History of Present Illness:
Note:
CHIEF COMPLAINT(S)
Increased frequency of falls, weakness, confusion, and urinary issues.
HISTORY OF PRESENT ILLNESS
The patient is an 85-year-old male who has experienced an increase in the frequency of falls, reporting five falls, with the most recent occurrence leading to a fracture last October. His mentions that today, after wearing a dress for over 33
hours, he had difficulty rising and walking, requiring him to sit after only a few feet. The physical therapist was unable to assist him in walking further, and he was notably confused. The patient had a urinary tract infection two months ago,
resulting in a hospital stay for four to five days and subsequent rehabilitation. Presently, although there is a trace amount of blood in his urine, no signs of infection are apparent. His walking is characterized by shuffling, and he has been more
confused and weaker than usual today. Additionally, the patient has reported a weight loss of approximately 10 pounds over the last two months, attributed to changes in his diet, including increased cereal and frozen waffles consumption for
breakfast.
ADDITIONAL HISTORY OBTAINED FROM SOURCES OTHER THAN THE PATIENT
Per the patients , he has shown a lot of confusion today and was unable to walk as usual. She also mentioned that, although he drinks more water now, he is possibly not drinking as much as he should. After visiting their primary care provider,
the physician assistant property manager recommended hospitalization due to his condition.
CHRONIC MEDICAL CONDITIONS SIGNIFICANTLY AFFECTING CARE
The patient was diagnosed and treated for a urinary tract infection two months ago.
SOCIAL DETERMINANTS AFFECTING HEALTH
The patient lives at home with his . She expressed concerns about her ability to physically support him if he falls again.
REVIEW OF SYSTEMS
- Neurological: Confusion, difficulty walking, weakness.
- Genitourinary: Trace of blood in urine, no signs of infection.
- Gastrointestinal: Recent weight loss of 10 pounds.
PHYSICAL EXAM
General: Alert but slightly confused, no acute distress.
Skin: Warm, dry.
Head: Normocephalic, atraumatic.
Neck: Supple, trachea midline.
Eye Ears, nose, mouth and throat: Oral mucosa moist.
Cardiovascular: Heart rate is regular without murmurs. Normal peripheral perfusion.
Respiratory: Respirations are non-labored and clear.
Gastrointestinal : Abdomen soft and non-tender.
Back: Normal range of motion, Normal alignment.
Musculoskeletal: Exhibits no pronator drift, equal bilateral upper and lower muscle strength.
Neurological: Alert and oriented to person, but slightly confused. Exhibits no focal neurological deficit. No pronator drift.
Psychiatric: Cooperative, appropriate mood & affect.
PROBLEM LIST
- Increased frequency of falls
- Shuffling gait
- Confusion and weakness
- Non-infectious hematuria
- Recent significant weight loss
PLAN
1. Obtain a head scan to evaluate for possible normal pressure hydrocephalus or other causes of neuromuscular symptoms.
2. Perform a road test as mentioned to assess ambulatory capabilities.
3. Review previous medical records for additional context and comparison.
DIFFERENTIAL DIAGNOSIS
The Differential Diagnosis includes, in no particular order and is not limited to:
1. Normal Pressure Hydrocephalus
2. Urinary Tract Infection recurrence
3. Dementia or Cognitive Decline
4. Parkinsons Disease
5. Cerebrovascular Accident
6. Orthostatic Hypotension
7. Mediation Side Effects
8. Cardiac Arrhythmias
9. Peripheral Neuropathy
10. Dehydration and Electrolyte Imbalance
CARE-UPDATE
06/13/25 - 19:20
Patient demonstrating good mobility and appetite. No difficulties observed during ambulation with walker over 60 feet. Family presence noted for support.
Disposition:
SUMMARY OF ENCOUNTER
The patient, an 85-year-old male with a history of dementia, presented to the emergency department due to difficulty walking and generalized weakness observed during occupational therapy. The family noted increased confusion, which was concerning
given his recent antibiotic regimen for a urinary tract infection. In the emergency department, laboratory studies, including a complete blood count and chemistry profile, were normal. The urinalysis showed microscopic hematuria with no signs of
infection. Previous records, including a discharge summary from April 14, 2025, were reviewed, revealing a past urinary tract infection related to Klebsiella. The patient was evaluated to be at his baseline status regarding his dementia and ambulated
without difficulty. A CT scan was obtained and showed unremarkable results. A long discussion was held with the family regarding the patients status, and given the reassuring diagnostics, discharge was deemed safe.
ASSESSMENT
The patients difficulty in walking and confusion are likely related to his underlying Lewy Body dementia, compounded by possible lingering effects of recent urinary tract infection treatment.
PLAN
The plan is to discharge the patient with instructions to follow up with his primary care physician. He should also continue monitoring for any signs of recurrent infection or increased confusion.
INDEPENDENT REVIEW OF LABS AND INTERPRETATION OF TESTS
- My independent review of the complete blood count (CBC) is normal.
- My independent review of the chemistry panel is normal.
- My independent review of the urinalysis is microscopic hematuria with no infection signs.
ADDITIONAL TESTING AND IMAGING CONSIDERED
A CT scan was ordered to rule out acute intracranial pathology, showing unremarkable results.
FOLLOW-UP INSTRUCTIONS
The patient is instructed to follow up with his primary care provider to monitor his conditions and any possible recurrences of infections or confusion.
MEDICATION RECONCILIATION
The patient was recently on antibiotics for a urinary tract infection. No new medications were administered during the visit.
MEDICAL DECISION MAKING
1. Number and Complexity of Problems Addressed: Chronic conditions affecting care include dementia and urinary tract infection. Differential diagnosis includes:
- Normal Pressure Hydrocephalus
- Urinary Tract Infection recurrence
- Dementia or Cognitive Decline
- Parkinson�s Disease
- Cerebrovascular Accident
- Orthostatic Hypotension
- Medication Side Effects
- Cardiac Arrhythmias
- Peripheral Neuropathy
- Dehydration and Electrolyte Imbalance
2. Data:
- Category 1: Non-emergency department records reviewed, including the discharge summary from April 14, 2025.
- Category 2: Clinical information was obtained from an independent historian, the patients family.
- My independent interpretation of the CT is unremarkable.
3. Risk:
- Consideration of Admission/Observation: Escalation of care including admission/observation was considered given the complexity and risk of the patients presenting complaint, exam findings, and/or their underlying comorbidities. However, ultimately
I feel the patient is safe for outpatient management with close follow-up. Reasoning: Work-up reassuring, does not reveal any acute life/organ threatening processes, patients symptoms well controlled upon reevaluation, reexamination is reassuring,
vitals are stable, patient agreeable with discharge, reliable for follow-up.
DIAGNOSIS
- Urinary tract infection, resolved (ICD-10: N39.0)
- Lewy Body Dementia (ICD-10: G31.83)
Past History
Past History
ED Past Medical History: CAD, HTN, Hypercholesterolemia and Other (Bowel obstruction, Sensory Tremors)
ED Past Surgical History: Appendectomy and Cardiac (Cardiac stents)
Social History
Tobacco: Former smoker
Alcohol: None
Drug: None
Personal:
Living: with family
Employment: Employed
Phy Exam
Physical Exam
Physical Exam:
.
Course
Orders/Labs/Results
Orders:
Orders
06/13/25 15:17
Complete Blood Count/With Diff Urgent
Comprehensive Metabolic Panel Urgent
06/13/25 15:33
Lidocaine 2% [Lidocaine Uro-Jet 2%] 1 syringe .ROUTE .[facility]
06/13/25 15:43
Urinalysis Reflex To Culture Urgent
Date Specimen was Collected: 06/13/25
Time Specimen was Collected: 15:42
Urine Microscopic Reflex Cult Urgent
06/13/25 16:22
CT Head W/o Iv Contrast Urgent
Comment:
Reason For Exam: difficulty walking, confusion
Abnormal Lab Results
06/13/25 06/13/25
15:17 15:43
RBC 4.60 L 10^6/uL
(4.70-6.10)
MCV 95.7 H fL
(80.0-94.0)
MCH 32.2 H pg
(27.0-31.0)
Ur Occult Blood Reflex 3+ A
(Negative)
Urine RBC 30-40 A /HPF
(0-2)
Urine Bacteria (Reflex) Few A
(Negative)
Urine Albumin (Reflex) 1+ A
(Neg - Trace)
06/13/25 15:17
06/13/25 15:17
Vital Signs
Initial and Last Documented VS:
Initial Vital Signs
Temp Pulse Resp BP Pulse Ox
97.8 F 72 16 149/98 97
06/13/25 15:08 06/13/25 15:08 06/13/25 15:08 06/13/25 15:08 06/13/25 15:08
Last Documented Vital Signs
Temp Pulse Resp BP Pulse Ox
97.8 F 99 20 134/88 97
06/13/25 15:08 06/13/25 19:40 06/13/25 19:40 06/13/25 19:31 06/13/25 19:40
*Pulse Oximetry
SaO2: 955
Oxygen Mode of Delivery: Room air
Patient hypoxic: no
*Critical Care Note
Total Time (30-74mins, 75-104mins- exclusive of procedures): Not Applicable
ED Attending Note
-
Portions of this chart may have been created with voice recognition software.� Occasional wrong word or��sound alike� substitutions may have occurred due to the inherent limitations of voice recognition software.
Discharge Plan
Departure
Patient Disposition: Home (Routine Discharge)
Date of Disposition: 06/13/25
Time of Disposition: 19:22
Patient with high blood pressure during this ER visit?: Yes
Discharge Problem:
Gait disturbance, LBD (Lewy body dementia)
Instructions: Generalized Weakness (DC), BLOOD PRESSURE
Prescriptions:
No Action
aspirin 81 MG tablet,delayed release (DR/EC)
81 mg PO HS
atorvastatin 40 MG tablet
40 mg PO HS
ascorbic acid (vitamin C) [Vitamin C] 1,000 MG tablet
1,000 mg PO BID
memantine 10 MG tablet
10 mg PO BID
cholecalciferol (vitamin D3) 2,000 UNITS tablet
2,000 units PO DAILY
multivitamin Tablet
1 tab PO DAILY
zinc acetate 50 mg (zinc) Capsule
50 mg PO DAILY
acetaminophen [Tylenol] 325 mg Tablet
650 mg PO Q6H PRN (Reason: fever, mild pain)
donepezil 10 mg Tablet
10 mg PO DAILY
cetirizine [Aller-Yvonne] 10 mg Tablet
10 mg PO DAILY
citalopram [Celexa] 20 mg Tablet
20 mg PO DAILY
docusate sodium [Colace] 100 mg Capsule
100 mg PO BID
finasteride 5 mg Tablet
5 mg PO DAILY
pantoprazole 40 mg Tablet,Delayed Release (Dr/Ec)
40 mg PO DAILY Qty: 0 0RF
cephalexin 500 mg capsule
500 mg PO QID Qty: 16 0RF
Rx Instructions:
FOR 4 DAYS
Referrals:
Johny Fernandez MD [Family Provider, Internal Medicine]
Activity Restrictions/Additional Instructions:
Return immediately for fevers, vomiting, changes in mentation, weakness of any kind or any other concerns. Please follow-up with your doctor in the next 1 week.
Interventions
Interventions:
*Risk Screen - Suicide Last Done: 06/13/25 15:13
*General Assessment Last Done: 06/13/25 15:13
*Neglect/Abuse Screening Last Done: 06/13/25 15:13
*ED- Fall Risk Assessment Last Done: 06/13/25 15:13
*ED COVID-19 Vaccine History Last Done: 06/13/25 19:39
*Nursing Disposition Last Done: 06/13/25 19:40
ED- Cardiac Assessment Last Done: 06/13/25 15:14
ED- Neurological Assessment Last Done: 06/13/25 15:14
ED- Pulmonary Assessment Last Done: 06/13/25 15:14
Discharge Date and Time
Discharge Date/Time: 06/13/25 19:42
Print Language: DJIBOUTIAN
[2025-06-13 19:31] VITALS: BP 134/88
== END 2025-06-13 19:42 | disposition home or self-care (01) ==
LOC: EMR 15:06
PROVIDERS: Emergency Medicine; EMERGENCY PHYSICIAN Emergency Medicine; FAMILY PHYSICIAN Internal Medicine
DX: R53.1 Weakness (principal); E78.00 Pure hypercholesterolemia, unspecified; I10 Essential (primary) hypertension; I25.10 Atherosclerotic heart disease of native coronary artery without angina pectoris; F02.80 Dementia in other diseases classified elsewhere, unspecified severity, without behavioral disturbance, psychotic disturbance, mood disturbance, and anxiety; G31.83 Neurocognitive disorder with Lewy bodies; Z87.440 Personal history of urinary (tract) infections; Z87.891 Personal history of nicotine dependence; Z90.49 Acquired absence of other specified parts of digestive tract; Z95.5 Presence of coronary angioplasty implant and graft
CPT/HCPCS: 99284; 70450; 80053; 81003; 81015; 85025

== ENCOUNTER 2025-09-07 14:03 | Inpatient (IN) | payer MEDICARE, BC, SELFPAY ==
[2025-09-06] VITALS (11 sets, daily range): BP systolic 111–166; BP diastolic 69–99; BMI 25.9; BMI 25.6
--- NOTE | 2025-09-06 19:47 | ED.CVA ---
History of Present Illness
<Sumaya Pichardo PA-C - Last Filed: 09/07/25 00:32>
General
Chief Complaint: CVA/TIA Symptoms
Source: patient and family
Exam Limitations: dementia
Time Seen by Provider: 09/06/25 19:19
Nursing documentation reviewed up to this point in time: agreed with
Onset of Stroke Symptoms
Onset of symptoms known: No
Time pt last seen normal is known: No
History of Present Illness
History of Present Illness:
see MDM
Past History
<Sumaya Pichardo PA-C - Last Filed: 09/07/25 00:32>
Past History
ED Past Medical History: CAD, HTN, Hypercholesterolemia and Other (Bowel obstruction, Sensory Tremors)
ED Past Surgical History: Appendectomy and Cardiac (Cardiac stents)
Social History
Tobacco: Former smoker
Alcohol: None
Drug: None
Personal:
Living: with family
Employment: Employed
Phy Exam
<Sumaya Pichardo PA-C - Last Filed: 09/07/25 00:32>
Physical Exam
Physical Exam:
GENERAL seems uncomfortable, holding his head
HEAD: NCAT
EYE: pupils equal and reactive, no nystagmus, no photophobia
seems to look to the R, less able to look latearlly to the left; does not respond to verbal cues or visual cues outof L eye periphery
NECK: Supple,full rom, nontender
ENT: o/p clr, mmm.
CARDIAC: Regular rate and rhythm . no edema
LUNGS: Clear breath sounds bilaterally, no acute respiratory distress, no wheezes/rales/rhonchi
ABDOMEN: Soft, without focal tenderness, no r/g, no cvat
NEUROLOGICAL: Alert and orientedx 1; no overt gaze palsy but seems to prefer looking to he R; , no facial asymmetry, 5/5 strength in UE/LE,neg pronator drift
SKIN: Warm and dry, skin intact.
MUSCULOSKELETAL: No edema, well perfused.
PSYCH: dementia
Course
<Sumaya Pichardo PA-C - Last Filed: 09/07/25 00:32>
Orders/Labs/Results
Orders:
Orders
09/06/25 Breakfast
NPO
Allow oral meds: Yes
Allow clear liquids: Sips of Clears
NPO with Ice Chips: Yes
09/06/25 19:35
CT HEAD STROKE ALERT W/o Cont Urgent
Comment:
Reason For Exam: seizure, ams,
09/06/25 19:36
Complete Blood Count/With Diff Urgent
Comprehensive Metabolic Panel Urgent
PTT Urgent
Prothrombin Time Urgent
Troponin I Urgent
09/06/25 19:39
Electrocardiogram (*1) Stat
Reason for Study: Other
Other Reason for Exam: neuro symptoms
Cardiac Monitoring- Treatment ONCE
EKG- Treatment ONCE
09/06/25 19:57
CT HEAD/NECK ANG STROKE ALERT Stat
Comment:
Reason For Exam: ams
09/06/25 20:07
Ceribell [Rapid Point of Care EEG (ED/ICU ONLY)] Q1H
Indications for use:: Altered Mental Status
09/06/25 20:37
NEUROLOGY CONSULT Urgent
Consulting Provider: Johny Mora
Was physician already notified: Yes
CR Chest Portable - 1 View Urgent
Comment:
Reason For Exam: confused
Reason Study Needs to be Portable: Unable to Transport
09/06/25 21:21
Urinalysis Reflex To Culture Urgent
Date Specimen was Collected: 09/06/25
Time Specimen was Collected: 21:19
Urine Microscopic Reflex Cult Urgent
Urine Culture Urgent
VIBHA Source: U
Specimen Description:
Date Specimen was Collected: 09/06/25
Time Specimen was Collected: 21:19
09/06/25 21:51
Admit/Transfer Patient As Directed
Co-Sign Provider:
Level of Care: Observation services
Assign to:: Telemetry
Physician / Group: Htay
Diagnosis: Seizure
Reason for Telemetry: Arrhythmia
Date to Stop Telemetry: 09/09/25
Time to Stop Telemetry: 11:00
PRN Pain Medication Management As Directed
May give lesser potent ordered pain med per pt: Yes
preference::
Protocol:: Medication orders for pain may be administered in a
manner that supports deferring to patient preference
when the pt is:
- Requesting an ordered lesser potent pain medication.
Least to most potent pain medications are defined
as: acetaminophen < NSAID < tramadol < opioids
(morphine, oxycodone, hydromorphone).
- Requesting a lesser dose of the same medication IF
ORDERED.
- Requesting a less intrusive route of administration
if both routes are prescribed by the provider (PO <
IV).
09/06/25 21:52
Code Status As Directed
Resuscitation Status: Do not resuscitate
Reached after discussion with pt or family/Healthcare POA: Yes
DNR Bracelet Application ONCE
09/06/25 23:43
0.9% Sodium Chloride 1000 ml [Nss] 1,000 ml IV 80 mls/hr
Acetaminophen [Tylenol] 650 mg PO Q4HPRN PRN
09/06/25 23:43
Activity As Directed
Activity Level: Bedrest
Bladder Scan As Directed
Follow Bladder Retention/Intermittent Cath Algorithm?: Yes
PRN if no void in __ hours: 6
Frequency: Per Retention Algorithm
If Bladder Scan Result >: 400
then:: Straight cath
Pneumatic Compression Sleeves As Directed
Type: Knee high
Precautions As Directed
Type of Precautions: Seizure
Straight Cath As Directed
Frequency: Per Retention Algorithm
Additional Instructions: straight cath as needed per acute urinary retention algorithm for 24 hrs
Additional Instructions: for bladder scan greater than 400 mL
Vital Signs As Directed
Frequency: Per unit guidelines
Ot Eval And Treat Routine
Pt Eval And Treat Routine
Activity Level: Out of Bed-Early Mobility
Speech Therapy Eval & Treat Routine
DX Deep Vein Thrombosis Video Routine
09/07/25 06:00
Basic Metabolic Panel IN AM
Complete Blood Count/No Diff IN AM
09/07/25 22:00
CefTRIAXone [Rocephin] 1,000 mg IV Q24H
09/09/25 11:00
DC Protocol for Telemetry ONCE
Abnormal Lab Results
09/06/25 09/06/25
19:36 21:21
MCV 94.1 H fL
(80.0-94.0)
MCH 31.8 H pg
(27.0-31.0)
Absolute Lymphs (auto) 4.4 H 10^3/uL
(1.2-3.4)
Absolute Monos (auto) 0.7 H 10^3/uL
(0.1-0.6)
Glucose 166 H mg/dl
(70-99)
Ur Occult Blood Reflex 1+ A
(Negative)
Urine Nitrite (Reflex) Positive A
(Negative)
Leukocyte Esterase Rfl 2+ A
(Negative)
Urine RBC 3-6 A /HPF
(0-2)
Urine WBC (Reflex) 50-60 A /HPF
(0-5)
Urine Bacteria (Reflex) Moderate A
(Negative)
Urine Albumin (Reflex) 3+ A
(Neg - Trace)
09/06/25 19:36
09/06/25 19:36
Vital Signs
Initial and Last Documented VS:
Initial Vital Signs
Temp Pulse Resp BP Pulse Ox
36.6 C 69 16 158/78 93
09/06/25 19:18 09/06/25 19:18 09/06/25 19:18 09/06/25 19:18 09/06/25 19:18
Last Documented Vital Signs
Temp Pulse Resp BP Pulse Ox
36.6 C 67 14 166/89 94
09/06/25 23:58 09/06/25 23:58 09/06/25 23:58 09/06/25 23:58 09/06/25 23:58
<Mina Ford MD - Last Filed: 09/06/25 20:37>
Orders/Labs/Results
Orders:
Orders
09/06/25 Breakfast
NPO
Allow oral meds: Yes
Allow clear liquids: Sips of Clears
NPO with Ice Chips: Yes
09/06/25 19:35
CT HEAD STROKE ALERT W/o Cont Urgent
Comment:
Reason For Exam: seizure, ams,
09/06/25 19:36
Complete Blood Count/With Diff Urgent
Comprehensive Metabolic Panel Urgent
PTT Urgent
Prothrombin Time Urgent
Troponin I Urgent
09/06/25 19:39
Electrocardiogram (*1) Stat
Reason for Study: Other
Other Reason for Exam: neuro symptoms
Cardiac Monitoring- Treatment ONCE
EKG- Treatment ONCE
09/06/25 19:57
CT HEAD/NECK ANG STROKE ALERT Stat
Comment:
Reason For Exam: ams
09/06/25 20:07
Ceribell [Rapid Point of Care EEG (ED/ICU ONLY)] Q1H
Indications for use:: Altered Mental Status
09/06/25 20:37
NEUROLOGY CONSULT Urgent
Consulting Provider: Johny Mora
Was physician already notified: Yes
CR Chest Portable - 1 View Urgent
Comment:
Reason For Exam: confused
Reason Study Needs to be Portable: Unable to Transport
09/06/25 21:21
Urinalysis Reflex To Culture Urgent
Date Specimen was Collected: 09/06/25
Time Specimen was Collected: 21:19
Urine Microscopic Reflex Cult Urgent
Urine Culture Urgent
VIBHA Source: U
Specimen Description:
Date Specimen was Collected: 09/06/25
Time Specimen was Collected: 21:19
09/06/25 21:51
Admit/Transfer Patient As Directed
Co-Sign Provider:
Level of Care: Observation services
Assign to:: Telemetry
Physician / Group: Htay
Diagnosis: Seizure
Reason for Telemetry: Arrhythmia
Date to Stop Telemetry: 09/09/25
Time to Stop Telemetry: 11:00
PRN Pain Medication Management As Directed
May give lesser potent ordered pain med per pt: Yes
preference::
Protocol:: Medication orders for pain may be administered in a
manner that supports deferring to patient preference
when the pt is:
- Requesting an ordered lesser potent pain medication.
Least to most potent pain medications are defined
as: acetaminophen < NSAID < tramadol < opioids
(morphine, oxycodone, hydromorphone).
- Requesting a lesser dose of the same medication IF
ORDERED.
- Requesting a less intrusive route of administration
if both routes are prescribed by the provider (PO <
IV).
09/06/25 21:52
Code Status As Directed
Resuscitation Status: Do not resuscitate
Reached after discussion with pt or family/Healthcare POA: Yes
DNR Bracelet Application ONCE
09/06/25 23:43
0.9% Sodium Chloride 1000 ml [Nss] 1,000 ml IV 80 mls/hr
Acetaminophen [Tylenol] 650 mg PO Q4HPRN PRN
09/06/25 23:43
Activity As Directed
Activity Level: Bedrest
Bladder Scan As Directed
Follow Bladder Retention/Intermittent Cath Algorithm?: Yes
PRN if no void in __ hours: 6
Frequency: Per Retention Algorithm
If Bladder Scan Result >: 400
then:: Straight cath
Pneumatic Compression Sleeves As Directed
Type: Knee high
Precautions As Directed
Type of Precautions: Seizure
Straight Cath As Directed
Frequency: Per Retention Algorithm
Additional Instructions: straight cath as needed per acute urinary retention algorithm for 24 hrs
Additional Instructions: for bladder scan greater than 400 mL
Vital Signs As Directed
Frequency: Per unit guidelines
Ot Eval And Treat Routine
Pt Eval And Treat Routine
Activity Level: Out of Bed-Early Mobility
Speech Therapy Eval & Treat Routine
DX Deep Vein Thrombosis Video Routine
09/07/25 06:00
Basic Metabolic Panel IN AM
Complete Blood Count/No Diff IN AM
09/07/25 22:00
CefTRIAXone [Rocephin] 1,000 mg IV Q24H
09/09/25 11:00
DC Protocol for Telemetry ONCE
Abnormal Lab Results
09/06/25 09/06/25
19:36 21:21
MCV 94.1 H fL
(80.0-94.0)
MCH 31.8 H pg
(27.0-31.0)
Absolute Lymphs (auto) 4.4 H 10^3/uL
(1.2-3.4)
Absolute Monos (auto) 0.7 H 10^3/uL
(0.1-0.6)
Glucose 166 H mg/dl
(70-99)
Ur Occult Blood Reflex 1+ A
(Negative)
Urine Nitrite (Reflex) Positive A
(Negative)
Leukocyte Esterase Rfl 2+ A
(Negative)
Urine RBC 3-6 A /HPF
(0-2)
Urine WBC (Reflex) 50-60 A /HPF
(0-5)
Urine Bacteria (Reflex) Moderate A
(Negative)
Urine Albumin (Reflex) 3+ A
(Neg - Trace)
09/06/25 19:36
09/06/25 19:36
Vital Signs
Initial and Last Documented VS:
Initial Vital Signs
Temp Pulse Resp BP Pulse Ox
36.6 C 69 16 158/78 93
09/06/25 19:18 09/06/25 19:18 09/06/25 19:18 09/06/25 19:18 09/06/25 19:18
Last Documented Vital Signs
Temp Pulse Resp BP Pulse Ox
36.6 C 67 14 166/89 94
09/06/25 23:58 09/06/25 23:58 09/06/25 23:58 09/06/25 23:58 09/06/25 23:58
<Sumaya Pichardo PA-C - Last Filed: 09/07/25 00:32>
MDM/Problems Addressed
Differential Diagnosis Includes:
see MDM
MDM/Problems Addressed:
Note:
CHIEF COMPLAINT(S)
Altered mental status, possible seizure.
HISTORY OF PRESENT ILLNESS
The patient is an 85-year-old male h/o dementia from home with AMS and recent episode suspected to be a seizure. The incident occurred while the patient was at home. He reportedly got up at three oclock in the afternoon to use the bathroom and then
returned to a recliner in the sunroom. he sleeps 20 hours a day; he was in the recliner when the motion camera pickedu p on activity and it looks like tonic clonic seizure movement of arms and legs; pt subsequently was not speaking following this
they called 911 and now pt is awake and responsive There is no known history of similar episodes or seizures in the past. The family provided a video of the suspected seizure.
PAST MEDICAL AND SURIGICAL HISTORY
Not discussed.
ADDITIONAL HISTORY OBTAINED FROM SOURCES OTHER THAN THE PATIENT
According to family members, the patient has significant hearing loss and impaired vision. He had a noted change in behavior and alertness observed in the late afternoon.
SOCIAL DETERMINANTS AFFECTING HEALTH
The patient appears to have significant sensory impairments, including hearing and vision difficulties, potentially affecting his daily living and health management.
PHYSICAL EXAM
- Nursing notes reviewed and vital signs reviewed.
PROBLEM LIST
- Acute: Altered mental status, suspected seizure.
- Chronic: Hearing impairment, vision impairment.
PLAN
- Proceed with neuroimaging to evaluate for potential stroke, considering the high risk of hemorrhagic stroke given the sudden onset and nature of symptoms.
- The patient will need hospitalization for further evaluation and management.
- Review the video provided by the family to confirm seizure activity and nature.
DIFFERENTIAL DIAGNOSIS
The Differential Diagnosis includes, in no particular order and is not limited to:
- Stroke (ischemic or hemorrhagic)
- Seizure disorder
- Transient ischemic attack
- Metabolic encephalopathy
- Dementia-related behavioral changes
- Intracranial mass or lesion
- Delirium secondary to infection or other factors
- Medication side effects
- Head trauma
- Acute confusional state due to underlying chronic conditions
85 yo M
h/o dementia
ams following what looks like seizure activity on camera obtained by family
pt is not hat his basline
normally recognizes his and daughter
for me seemed to have hemineglect, only responding to the right side, when i would speak at him on his left side he turned to the Right to look for me
then i moved to th R side of his body and he saw me and would respond to questions
very occasionally i could gt him to look to the L but it seemed as if he could not see me
othewise other than date/time he had no focal neuro exam
d/w ed attending
despite not really having true last normal, stroke alert called
non con ct head neg
d/w neurologist client technical professional dr. mora
pt improved to his baseline after period of observation in the ER; pt's ceribell testing was neg for ongoing seizure activity/status
pt has UTI
will admit, iv abx, neuro consult
<Sumaya Pichardo PA-C - Last Filed: 09/07/25 00:32>
*Pulse Oximetry
SaO2: 92
Oxygen Mode of Delivery: Room air
Patient hypoxic: no (94)
*Critical Care Note
Total Time (30-74mins, 75-104mins- exclusive of procedures): Not Applicable
ED Attending Note
<Sumaya Pichardo PA-C - Last Filed: 09/07/25 00:32>
-
Portions of this chart may have been created with voice recognition software.� Occasional wrong word or��sound alike� substitutions may have occurred due to the inherent limitations of voice recognition software.
<Mina Ford MD - Last Filed: 09/06/25 20:37>
ED Attending Note
Patient seen and examined by attending physician: Yes
ED Attending Note:
I have seen and evaluated the patient with a [id number] encounter. I have spoken to the advance practicer provider and involved in the medical history, the physical exam, medical decision making.
Evaluation and management service: agree unless noted differently below.
Results interpretation: agree unless noted differently below.
Focused HPI: 85-year-old male with history as noted significant for Lewy body dementia presents to the ER with his and daughter for evaluation of mental status change after apparent seizure. Patient at baseline has rather advanced dementia�his
family says that he spends most of the day in a recliner and will only get up to use the restroom or to eat. He is able to answer questions and make his needs known, follow directions and recognizes his family at baseline. His family has a camera
set up in the house. He was last seen normal on the camera at 3 PM moving around. Apparently a family member went to wake the patient this evening and he was markedly confused. When they checked the camera footage it was noted that patient had a
tonic-clonic seizure at around 6 PM (family has footage available at bedside and activity does seem consistent with tonic-clonic seizure; approximately 1 minute of seizure activity on camera). He has no history of seizures. No reported falls or
injuries.
Physical exam: Awake and alert. He is confused is able to tell me his name but not the month. He does follow simple commands. He is hypertensive but otherwise normal vitals. Cranial nerves appear to be intact 2 through 12 with no facial droop
pain, no gaze palsy�initially he seemed to be preferential towards rightward gaze but during my assessment this seems to have improved. He is moving all extremities symmetrically�had no pronator drift was able to lift his legs with no drift and
sensory exam appears to be intact. He is not aphasic or dysarthric but does appear mildly confused. He has no cardiac rubs gallops or murmurs and rhythm appears regular. Lungs sound clear. Abdomen benign. He does have a minor tongue laceration
on the right side.
Medical Decision Makin-year-old male presents for evaluation of mental status change after witnessed seizure on camera. No known history of seizures. Vitals and exam as above. He was initially called as a stroke alert�CT head no acute
abnormalities. Suspect this is likely seizure with postictal symptoms. Will place [place] to rule out status. Discussed with neurology who will consult. Send labs and infectious workup. Plan for admission pending initial assessment.
Discharge Plan
Departure
Patient Disposition: Admit
Date of Disposition: 09/06/25
Time of Disposition: 21:03
Admit to: Telemetry
Presentation/result/management discussed w/ accepting MD/DO: Hospitalist
Condition: Fair
Covid-19: Not Applicable
Discharge Problem:
Seizure, AMS (altered mental status)
Interventions
Interventions:
*Risk Screen - Suicide Last Done: 09/06/25 19:23
*General Assessment Last Done: 09/06/25 19:23
*Neglect/Abuse Screening Last Done: 09/06/25 19:23
*ED- Fall Risk Assessment Last Done: 09/06/25 21:52
*ED COVID-19 Vaccine History Last Done: 09/06/25 19:23
*ED Influenza Vaccine History Last Done: 09/06/25 19:23
*Nursing Disposition Last Done: 09/06/25 23:36
ED- Pulmonary Assessment Last Done: 09/06/25 20:10
ED- Neurological Assessment Last Done: 09/06/25 19:36
ED- Cardiac Assessment Last Done: 09/06/25 20:10
ED Swallowing Screen Last Done: 09/06/25 21:30
Discharge Date and Time
Discharge Date/Time: 09/06/25 23:38
[2025-09-06 20:02] LABS: Hematocrit 47.7 % (39.0-52.0); Hemoglobin 16.1 g/dL (13.0-18.0); Mean Corp Hgb Conc. 33.8 g/dL (33.0-37.0); Mean Corpuscular Volume 94.1 fL (80.0-94.0); Nucleated Red Blood Cells % 0 % (-); Platelet Count 174 10^3/uL (130-400); Red Cell Dist. Width 14.1 % (11.5-14.5)
[2025-09-06 20:15] LABS: INR 0.90; PT 12.6 Sec (11.4-14.6)
[2025-09-06 20:16] LABS: APTT 24.6 Sec (23.4-35.0)
[2025-09-06 20:17] LABS: ALT (SGPT) 24 U/L (0-50); AST (SGOT) 25 U/L (17-59); Albumin 4.2 g/dl (3.5-5.0); Alkaline Phosphatase 79 U/L (38-126); Blood Urea Nitrogen 17 mg/dl (9-20); Calcium 9.2 mg/dl (8.4-10.2); Carbon Dioxide 24 mmol/L (22-30); Chloride 105 mmol/L (98-107); Estimated Creatinine Clearance 61 ml/min; Glucose 166 mg/dl (70-99); Potassium 4.5 mmol/L (3.5-5.1); Sodium 138 mmol/L (135-145); Total Protein 6.9 g/dl (6.3-8.2); eGFR > 60.00
[2025-09-06 20:26] LABS: Troponin I < 0.012 ng/ml
--- NOTE | 2025-09-06 21:25 | HPS.HSE ---
Family Physician
-
Family Physician: Johny Fernandez
Chief Complaint
-
Change in Mental Status
History of Present Illness
Patient is an 85 y/o male past medical history of CAD, Hypertension, Lewy Body Dementia, and BPH who presents with a change in mental status. Patient's went into the room to get him up for dinner and he was not speaking. EMS was called and he
was brought to the emergency department for evaluation. Family reviewed video footage of the patient from just prior and noted tonic-clonic seizure activity. Family denies any recent illness or changes in medications.
Medical History
Past Medical History
Past Medical History: Reports Other
Additional Past Medical History:
Coronary Artery Disease s/p Stents
Essential Hypertension
Hyperlipidemia
Dementia
Depression
BPH
Past Surgical History: Reports Other
Additional Past Surgical History:
Appendectomy
Cardiac Stents
Spinal Fusion
Social History
Tobacco: Former Smoker
Alcohol: None
Personal:
Living: With Family
Family History
Family History: Not pertinent
Allergies / Home Medications
Allergies reflects when Allergies were last updated in [facility].
Home Medications with original date entered in [facility]
Allergy/Medication List:
Allergies
Allergy/AdvReac Type Severity Reaction Status Date / Time
venom-honey bee (bee venom Allergy Swelling Verified 04/09/25 20:05
(honey bee))
venom-wasp Allergy SWELLING-YELLOW Verified 04/09/25 20:05
JACKETS
ONLY
Home Medications
ascorbic acid (vitamin C) 1,000 mg tablet (Vitamin C) 1,000 mg PO BID Supplement 05/15/22
atorvastatin 40 mg tablet 40 mg PO HS High cholesterol 05/15/22
cholecalciferol (vitamin D3) 50 mcg (2,000 unit) tablet 2,000 units PO DAILY Supplement 05/15/22
memantine 10 mg tablet 10 mg PO BID dementia 05/15/22
multivitamin 1 tab PO DAILY Supplement 01/27/23
zinc acetate 50 mg (zinc) capsule 50 mg PO DAILY Supplement 01/27/23
acetaminophen 325 mg tablet (Tylenol) 650 mg PO Q6H PRN fever, mild pain 01/01/24
donepezil 10 mg tablet 10 mg PO DAILY dementia 01/01/24
cetirizine 10 mg tablet (Aller-Yvonne) 10 mg PO DAILY Allergies 01/24/24
citalopram 20 mg tablet (Celexa) 20 mg PO DAILY depression/anxiety 01/24/24
finasteride 5 mg tablet 5 mg PO DAILY Urinary Issue 01/24/24
pantoprazole 40 mg tablet,delayed release 40 mg PO DAILY #0 tabs 01/31/24
Review of Systems
-
Unable to obtain full review of systems at this time due to: Dementia
Physical Exam
Vital Signs
Vital Signs
Temp Pulse Resp BP Pulse Ox
98 F 67 13 158/83 98
09/06/25 19:18 09/06/25 20:45 09/06/25 20:45 09/06/25 20:30 09/06/25 20:30
Physical Exam
General: Well Developed, Well Nourished and Other (Easily arousable and spoke a few words to me)
HEENT: Anicteric and Moist mucous membranes
Respiratory: Clear and Non Labored Respirations
Cardiac: S1/S2 and Regular Rhythm
GI: Soft and Non Tender
Rectal: Deferred by Provider
Musculoskeletal: No Clubbing and No Cyanosis
Skin: Warm and Dry
Neuro: No Motor Deficits and Other (Easily arousable, Follows simple commands)
Psych: Calm
Laboratory Results
-
09/06/25 19:36
09/06/25 19:36
Laboratory Results
PT 12.6 Sec (11.4-14.6) 09/06/25 19:36
PT Cancelled 09/06/25 19:36
INR 0.90 09/06/25:36
INR Cancelled 09/06/25:36
APTT 24.6 Sec (23.4-35.0) 09/06/25 19:36
APTT Cancelled 09/06/25 19:36
Total Bilirubin 0.8 mg/dl (0.2-1.3) 09/06/25 19:36
Total Bilirubin Cancelled 09/06/25 19:36
AST 25 U/L (17-59) 09/06/25 19:36
AST Cancelled 09/06/25:36
ALT 24 U/L (0-50) 09/06/25 19:36
ALT Cancelled 09/06/25 19:36
Alkaline Phosphatase 79 U/L (38-126) 09/06/25 19:36
Alkaline Phosphatase Cancelled 09/06/25 19:36
Troponin I < 0.012 ng/ml 09/06/25:36
Troponin I Cancelled 09/06/25 19:36
Data Reviewed
-
CT Scan: Report Reviewed by me
Lab Data: Labs Reviewed by me
Old Records: Reviewed
Impression/Plan
-
New-Onset Seizure
-Consult Neurology
-Hold on starting anti-epileptics unless patient develops recurrent seizures
-Defer decision for Brain MRI to Neurology
-Continue seizure precautions
-Will keep NPO until more awake and seen by speech
Urinary Tract Infection
-Continue ceftriaxone
-Await urine culture
Coronary Artery Disease s/p Stent
-Patient is no longer on aspirin
Lewy Body Dementia
-Monitor for mood/behavior changes during hospitalization
BPH
-Monitor bladder scans
DVT proph: SCDs
Code Status: DNR confirmed with family at bedside at time of admission
--- NOTE | 2025-09-06 21:26 | W.PN.UPDATE ---
Update Note
Progress Note Update
I could not get any information from the patient has dementia �
Information gathered by chart review and speaking with the ER staff.
This note serves as an addendum to the H&P by area director of home health sales THERESA�
Isabell ALDRIDGE
HPI
85M from HX Dementia, CAD with stents, HTN, HX Bowel obstruction, essential Tremors seen at ER:
- pw AMS and become unresponsive
-Last seen normal at 1500H
- Per ring cameraat home , saw patient had tonic clonic Sz at 1600
- No prior HX Sz
- Since then patient has not been talking
Relevant VS
Temp Pulse Resp BP Pulse Ox
98 F 67 13 158/83 98
09/06/25 19:18 09/06/25 20:45 09/06/25 20:45 09/06/25 20:30 09/06/25 20:30
PE
Gen:easily arousable, fall asleep esily
HEENT: symmetric face, track with eyes
Neck: supple
Cor:RRR
Abdomen:�benign
[employer]OR[employer]: intermittently sleepy and chronic
MS:
Psych:
Relevant Data
09/06/25
19:36
WBC 10.7
Hgb 16.1
Plt Count 174
Carbon Dioxide 24
BUN 17
Creatinine 1.0
eGFR > 60.00
Troponin I < 0.012
09/06/25
21:21
Urine Nitrite (Reflex) Positive A
Urine RBC Pending
Urine WBC (Reflex) Pending
CXR pending final report
CTA H & N pending final report
HCT : No evidence of acute intracranial abnormality
ASSESSMENT & PLAN
Witnessed tonic clonic Sz at home camera - first episode - uncertain precipitant thus presumed unprovoked
- suspect most likely postictal decreased responsiveness rather than TME
- no prior HX Sz
- unremarkable labs
- NEG HCT
- Pending CTA H & N
- Pending UA
- [facility] MRI in AM
- Hold of AEDs for now
- NPO and hold PO Meds including anti histamines and SSRI till eval by ST
- cont EEG
- Neurologist consult - defer further Brain MRI opr what not to Neurologist
Abn UA - Pending UCx
BPH HX
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
- No clear etio for new onset of Sz thus will start on empiric IV CFTX
HX Dementia - suspected LWB dementia
Depression
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
- Hold Celexa for now due to lower Sz threshold
- NPO and hold PO meds till eval by ST
HLD on Atorvastatin
- NPO and hold PO Meds till eval by ST
Case dw spouse and daughter in length
DVT Px: SCD
DNR
OBS TLM
[2025-09-06 21:32] LABS: Urine Character Cloudy (Clear)
[2025-09-06 22:20] LABS: Urine White Cell 50-60 /HPF (0-5)
[2025-09-06] MEDS: ROCEPHIN 2000 MG IV (22:50)
[2025-09-06] MEDS: NSS 1000 IV (23:55)
[2025-09-07] VITALS (8 sets, daily range): BP systolic 145–176; BP diastolic 79–98; PULSE 78; O2SAT 99; BMI 25.6
--- NOTE | 2025-09-07 07:34 | W.RAPID.EEG ---
Rapid EEG
-
Procedure Date: 09/06/25
Results:
Impression:
No evidence of status epilepticus
Patient Name: SHERWIN POMPA Date of : 1940
Location: ED Age: 85
Primary Indication: Other, Other: ALTERED MENTAL STATUS
Order Details
Site: [facility] Ordering Physician: GISEL
Recording Information:
Diagnostic Recording Time: 02:28:01 (148 minutes)
Start Time: Sep 06, 2025 20:20 PM End Time: Sep 06, 2025 22:48 PM
Recording Technique: This EEG was obtained using a 10 lead, 8 channel system positioned circumferentially without any parasagittal coverage (rapid EEG).
Computer selected EEG is reviewed as well as background features and all clinically significant events.
Clarity algorithm utilized and implemented to provide analysis of underlying activity and seizure detection used to facilitate reading. ICD-10 Code EX90H51
Clinical History: SHERWIN POMPA is a 85 year old Other, Other: ALTERED MENTAL STATUS patient undergoing EEG to screen for non-convulsive status epilepticus.
Disclaimer: EEG findings should be interpreted in the context of clinical history and other tests. A normal EEG does not rule out epilepsy or other conditions, and an abnormal EEG is not diagnostic on its own. Technical factors may affect
interpretation. Clinical context is required.
--- NOTE | 2025-09-07 08:35 | PTOTSP ---
Speech Language Pathology
Pt seen for clinical bedside swallow evaluation. Known to COMPUTER CLERK at from previous VSEs completed 03/19/22 and 10/17/21. Pharyngeal residue noted with some penetration, no aspiration. Recommendations from VSE in February 2022 were for chopped
solids/thin liquids.
This date, P.O. trials of puree, regular solids, and thin liquids provided. Impulsive rate of intake noted. Adequate mastication, bolus formation, and A-P transit noted with no oral residue. Audible swallow noted at times, which could be
indicative of incoordination. No overt signs of aspiration. WBC WNL, and CXR clear.
Recommend:
(1) IDDSI Level 6 (soft/bite-sized) and thin liquids
(2) Aspiration precautions: sit upright, slow rate, single sips, alternate solids and liquids, extra dry swallows, full supervision
(3) Meds as tolerated
(4) COMPUTER CLERK to continue to follow, likely briefly
[2025-09-07 08:53] LABS: Hematocrit 48.6 % (39.0-52.0); Hemoglobin 16.1 g/dL (13.0-18.0); Mean Corp Hgb Conc. 33.1 g/dL (33.0-37.0); Mean Corpuscular Volume 97.4 fL (80.0-94.0); Platelet Count 179 10^3/uL (130-400); Red Cell Dist. Width 13.9 % (11.5-14.5)
[2025-09-07 09:25] LABS: Blood Urea Nitrogen 16 mg/dl (9-20); Calcium 9.3 mg/dl (8.4-10.2); Carbon Dioxide 29 mmol/L (22-30); Chloride 106 mmol/L (98-107); Estimated Creatinine Clearance 61 ml/min; Glucose 80 mg/dl (70-99); Potassium 4.3 mmol/L (3.5-5.1); Sodium 141 mmol/L (135-145); eGFR > 60.00
[2025-09-07] MEDS: NSS 1000 IV ×2 (11:34→23:31)
--- NOTE | 2025-09-07 14:07 | W.PN.HOSP.TC ---
Today's Communication/Plan
-
Order MRI brain
Continue seizure precautions
Consider neuro consult based off of MRI result
Continue ceftriaxone and follow urine culture
Assessment / Plan
Assessment / Plan
#New seizure
- Likely provoked in the context of UTI and advanced dementia
- Decision made against starting empiric AED regimen upon admission
- EEG was performed and did not show any signs of status epilepticus
- Discussed with neurology, very likely related to UTI, hold off on neuro consult for now
- Will check MRI brain without contrast, consider neurology consult based off of result
- Continue with seizure precautions, as needed benzodiazepines
#Urinary tract infection
- Started on ceftriaxone following urine culture in the ED
- Continue empiric ceftriaxone, follow culture and narrow ABX as able
- Trend CBC and temperature curve
#Bilateral carotid stenosis
- CTA head and neck showed R >L carotid ASCVD without hemodynamically significant obstruction
- Patient remains on high intensity statin, does not take aspirin anymore at this time
- With his advanced dementia and comorbidities, no utility to resuming aspirin
- Consider outpatient follow-up if within GOC
#CAD s/p PCI
- Patient no longer on antiplatelet therapy, remains on high intensity statin
- No complaints of chest pains or other signs of ACS at this time
- Continue on telemetry for now
#BPH
- Monitor for urine retention
#Lewy body dementia
- Monitor for agitation or hallucinations
Diet: IDDSI 6
Thromboprophylaxis: SCDs
CODE STATUS: DNR/DNI
Disposition: PT pending
Anticipated Discharge: > 48 hours
Subjective/Interval History
-
Date of Service: September 07, 2025
Seen and examined at the bedside. No acute events reported overnight. AFVSS this morning
No further seizure activity reported. Urine culture remains pending, other labs stable
ROS limited by his dementia
Objective Data
-
Labs:
Laboratory Results
09/07/25
07:46
WBC 10.1
Hgb 16.1
Hct 48.6
Plt Count 179
Sodium 141
Potassium 4.3
Chloride 106
Carbon Dioxide 29
BUN 16
Creatinine 1.0
Glucose 80
Calcium 9.3
Vital Signs:
Vital Signs
Temp Pulse Resp BP Pulse Ox
98.3 F 72 18 176/86 95
09/07/25 11:00 09/07/25 11:00 09/07/25 11:00 09/07/25 11:00 09/07/25 11:00
Review of Systems
-
Unable to obtain full review of systems at this time due to: Dementia
Physical Exam
-
General: Well Developed, No Apparent Distress and Appears Chronically Ill
HEENT: Normocephalic, Atraumatic and Moist Mucous Membranes
Respiratory: Clear to Auscultation and Non Labored Respirations; Negative Accessory Resp Muscle Use
Cardiac: Regular Rhythm and S1/S2; Negative Murmur, Rub or Gallop
GI: Soft, Nontender, Nondistended and Normal Bowel Sounds
Musculoskeletal: No Clubbing, No Cyanosis and No Edema
Skin: Warm and Dry; Negative Rash
Neuro: Awake, Alert, Nonfocal/Grossly Intact and Central Nerve's Intact; Negative Oriented or Tremors
Psych: Calm
Data Reviewed
-
Labs: Labs Reviewed by me and Discussed with Nurse
--- NOTE | 2025-09-07 14:36 | CM ---
CM reviewed chart, patient seen asleep, bedside, initial assessment completed.
Patient is an 85 year old male past medical history of CAD, Hypertension, Lewy Body Dementia, and BPH who presents with a change in mental status.
Patient resides with his in a single story home, two steps to enter.
Patient is ambulatory with a RW, privately pays for OT once a week to assist w/showering.
Patient has been to [facility] SNF in past.
aware therapy recommending SNF- agreeable to referrals to [facility] and [facility].
PCP Johny Fernandez, Pharmacy [facility], confirms prescription coverage.
denies insecurities at home.
Patient admitted under obs status, upgraded to inpatient, JARVIS and IMM verbally reviewed, provided with copies, placed in chart.
Plan; SNF- referrals placed in [facility]
[2025-09-07] MEDS: STERILE WATER FOR INJECTION 10 ML IV (21:12)
[2025-09-07] MEDS: ROCEPHIN 1000 MG IV (21:12)
[2025-09-08 03:39] VITALS: BP 168/89
[2025-09-08 07:00] VITALS: BP 158/80
--- NOTE | 2025-09-08 10:57 | W.PN.HOSP.TC ---
Today's Communication/Plan
-
Continue with IV ceftriaxone follow urine culture
Follow-up MRI brain
Seizure precautions
DC fluids
Assessment / Plan
Assessment / Plan
#New seizure
- Likely provoked in the context of UTI and advanced dementia
- Decision made against starting empiric AED regimen upon admission
- EEG was performed and did not show any signs of status epilepticus
- Discussed with neurology, very likely related to UTI, hold off on neuro consult for now
- Will check MRI brain without contrast, consider neurology consult based off of result
- Continue with seizure precautions, as needed benzodiazepines
#Urinary tract infection
- Started on ceftriaxone following urine culture in the ED
- Continue empiric ceftriaxone, follow culture and narrow ABX as able
- Trend CBC and temperature curve
#Bilateral carotid stenosis
- CTA head and neck showed R >L carotid ASCVD without hemodynamically significant obstruction
- Patient remains on high intensity statin, does not take aspirin anymore at this time
- With his advanced dementia and comorbidities, no utility to resuming aspirin
- Consider outpatient follow-up if within GOC
#CAD s/p PCI
- Patient no longer on antiplatelet therapy, remains on high intensity statin
- No complaints of chest pains or other signs of ACS at this time
- Continue on telemetry for now
#BPH
- Monitor for urine retention
#Lewy body dementia
- Monitor for agitation or hallucinations
Diet: IDDSI 6
Thromboprophylaxis: SCDs
CODE STATUS: DNR/DNI
Disposition: SNF in 24 to 48 hours
Anticipated Discharge: 24 - 48 hours
Subjective/Interval History
-
Date of Service: September 08, 2025
Seen and examined at the bedside. No acute events reported overnight. AFVSS this morning
Patient peers much improved this morning, answering questions appropriately and no signs of agitation
He denies any complaints this morning states he feels quite well.
Objective Data
-
Labs:
Laboratory Results
09/08/25
06:00
WBC Pending
Hgb Pending
Hct Pending
Plt Count Pending
Sodium Pending
Potassium Pending
Chloride Pending
Carbon Dioxide Pending
BUN Pending
Creatinine Pending
Glucose Pending
Calcium Pending
Vital Signs:
Vital Signs
Temp Pulse Resp BP Pulse Ox
97.7 F 55 14 158/80 94
09/08/25 07:00 09/08/25 07:00 09/08/25 07:00 09/08/25 07:00 09/08/25 08:00
I&O
09/07/25 09/08/25 09/09/25
06:59 06:59 06:59
Intake Total 1840 / 1840
Output Total 600 / 600
Balance 1240 / 1240
Review of Systems
-
History Source: Patient
All other systems: Reviewed and negative
Physical Exam
-
General: Well Developed, No Apparent Distress and Comfortable
HEENT: Normocephalic, Atraumatic, Moist Mucous Membranes and Anicteric
Respiratory: Clear to Auscultation and Non Labored Respirations; Negative Accessory Resp Muscle Use
Cardiac: Regular Rhythm and S1/S2; Negative Murmur, Rub or Gallop
GI: Soft, Nontender, Nondistended and Normal Bowel Sounds
Musculoskeletal: No Clubbing, No Cyanosis and No Edema
Skin: Warm and Dry; Negative Rash
Neuro: AO x 3, Nonfocal/Grossly Intact and Central Nerve's Intact; Negative Tremors
Psych: Calm
Data Reviewed
-
Labs: Labs Reviewed by me, Discussed with Nurse and Discussed with Patient
[2025-09-08 11:00] VITALS: BP 158/81
[2025-09-08 13:59] LABS: Hematocrit 47.2 % (39.0-52.0); Hemoglobin 16.0 g/dL (13.0-18.0); Mean Corp Hgb Conc. 33.9 g/dL (33.0-37.0); Mean Corpuscular Volume 94.2 fL (80.0-94.0); Nucleated Red Blood Cells % 0 % (-); Platelet Count 162 10^3/uL (130-400); Red Cell Dist. Width 13.7 % (11.5-14.5)
[2025-09-08 14:04] LABS: Blood Urea Nitrogen 16 mg/dl (9-20); Calcium 9.3 mg/dl (8.4-10.2); Carbon Dioxide 28 mmol/L (22-30); Chloride 103 mmol/L (98-107); Estimated Creatinine Clearance 67 ml/min; Glucose 122 mg/dl (70-99); Potassium 4.8 mmol/L (3.5-5.1); Sodium 139 mmol/L (135-145); eGFR > 60.00
[2025-09-08] MEDS: NSS IV (14:27)
[2025-09-08 15:00] VITALS: BP 146/74
[2025-09-08 19:35] VITALS: BP 152/85
[2025-09-08] MEDS: ROCEPHIN 1000 MG IV (21:23)
[2025-09-08] MEDS: FLUSH (NSS) 1 FLUSH IV (21:23)
[2025-09-08] MEDS: STERILE WATER FOR INJECTION 10 ML IV (21:24)
[2025-09-08 23:30] VITALS: BP 163/83
[2025-09-09 03:48] VITALS: BP 161/88
[2025-09-09 07:00] VITALS: BP 168/96
--- NOTE | 2025-09-09 10:46 | W.PN.HOSP.TC ---
Today's Communication/Plan
-
Transition to Augmentin at discharge
Discharge to SNF when bed available
Assessment / Plan
Assessment / Plan
#New seizure
- Likely provoked in the context of UTI and advanced dementia
- Decision made against starting empiric AED regimen upon admission
- EEG was performed and did not show any signs of status epilepticus
- Discussed with neurology, very likely related to UTI, hold off on neuro consult for now
- Will check MRI brain without contrast, consider neurology consult based off of result
- Continue with seizure precautions, as needed benzodiazepines
#Urinary tract infection
- Started on ceftriaxone following urine culture in the ED
- Continue empiric ceftriaxone, follow culture and narrow ABX as able
- Urine culture with contaminant, no species identified
- Plan for Augmentin to complete 7-day course at discharge
- Trend CBC and temperature curve
#Bilateral carotid stenosis
- CTA head and neck showed R >L carotid ASCVD without hemodynamically significant obstruction
- Patient remains on high intensity statin, does not take aspirin anymore at this time
- With his advanced dementia and comorbidities, no utility to resuming aspirin
- Consider outpatient follow-up if within GOC
#CAD s/p PCI
- Patient no longer on antiplatelet therapy, remains on high intensity statin
- No complaints of chest pains or other signs of ACS at this time
- Continue on telemetry for now
#BPH
- Monitor for urine retention
#Lewy body dementia
- Monitor for agitation or hallucinations
Diet: IDDSI 6
Thromboprophylaxis: SCDs
CODE STATUS: DNR/DNI
Disposition: Medically stable for discharge to SNF when bed available
Anticipated Discharge: Within 24 hours
Subjective/Interval History
-
Date of Service: September 09, 2025
Seen and examined at the bedside. No acute events reported overnight. AFVSS this morning
Patient remains confused and at baseline with his Lewy body dementia though no agitation or acute events
Patient states he feels well and denies any complaint
Objective Data
-
Vital Signs:
Vital Signs
Temp Pulse Resp BP Pulse Ox
97.8 F 66 18 168/96 93
09/09/25 07:00 09/09/25 07:00 09/09/25 07:00 09/09/25 07:00 09/09/25 07:00
I&O
09/08/25 09/09/25 09/10/25
06:59 06:59 06:59
Intake Total 1840 / 1840 480 / 480
Output Total 600 / 600 500 / 500
Balance 1240 / 1240 -20 / -20
Review of Systems
-
Unable to obtain full review of systems at this time due to: Dementia
Physical Exam
-
General: Well Developed, Well Nourished and No Apparent Distress
HEENT: Normocephalic, Atraumatic and Moist Mucous Membranes
Respiratory: Clear to Auscultation and Non Labored Respirations; Negative Accessory Resp Muscle Use
Cardiac: Regular Rhythm and S1/S2; Negative Murmur, Rub or Gallop
GI: Soft, Nontender, Nondistended and Normal Bowel Sounds
Musculoskeletal: No Clubbing, No Cyanosis and No Edema
Skin: Warm and Dry; Negative Rash
Neuro: Awake, Alert, Oriented, Nonfocal/Grossly Intact and Central Nerve's Intact
Psych: Calm
Data Reviewed
-
Labs: Labs Reviewed by me, Discussed with Nurse and Discussed with Patient
--- NOTE | 2025-09-09 12:21 | CM ---
Addendum entered by Amira Toribio 09/09/25 12:40:
Spoke w/ patient's ; SNF referral status explained; and asked for additional site preference
is agreeable to sending a referral to [facility]. Referral sent via [facility]; also left a VM for Exec Director, Debbie Edwards, @# [phone], x [phone] to review in AM
Original Note:
Per Attending, patient is stable for discharge today;
[facility] declined SNF referral; [facility] referral response still pending; Case Management will follow up on referral status in AM
Plan: Discharge to SNF pending bed availability
[2025-09-09 15:00] VITALS: BP 167/93
[2025-09-09] MEDS: LIPITOR 40 MG PO (17:25)
[2025-09-09] MEDS: NAMENDA 10 MG PO (20:17)
[2025-09-09] MEDS: ARICEPT 10 MG PO (20:17)
[2025-09-09] MEDS: ROCEPHIN 1000 MG IV (21:38)
[2025-09-09] MEDS: STERILE WATER FOR INJECTION 10 ML IV (21:38)
[2025-09-09 22:56] VITALS: BP 176/102
[2025-09-09] MEDS: APRESOLINE 5 MG IV (23:21)
[2025-09-10 04:12] VITALS: BP 184/90
[2025-09-10] MEDS: LOPRESSOR 2.5 MG IV (04:32)
[2025-09-10] MEDS: CELEXA 20 MG PO (07:25)
[2025-09-10] MEDS: PROTONIX 40 MG PO (07:25)
[2025-09-10] MEDS: NAMENDA 10 MG PO ×2 (07:26→19:50)
[2025-09-10] MEDS: PROSCAR 5 MG PO (07:26)
[2025-09-10 07:45] VITALS: BP 170/88
--- NOTE | 2025-09-10 08:43 | W.PN.HOSP.TC ---
Today's Communication/Plan
-
Discharge to SNF when insurance approved
Assessment / Plan
Assessment / Plan
#New seizure
- Likely provoked in the context of UTI and advanced dementia
- Decision made against starting empiric AED regimen upon admission
- EEG was performed and did not show any signs of status epilepticus
- Discussed with neurology, very likely related to UTI, hold off on neuro consult for now
- Will check MRI brain without contrast, consider neurology consult based off of result
- Continue with seizure precautions, as needed benzodiazepines
#Urinary tract infection
- Started on ceftriaxone following urine culture in the ED
- Continue empiric ceftriaxone, follow culture and narrow ABX as able
- Urine culture with contaminant, no species identified
- Plan for Augmentin to complete 7-day course at discharge
- Trend CBC and temperature curve
#Bilateral carotid stenosis
- CTA head and neck showed R >L carotid ASCVD without hemodynamically significant obstruction
- Patient remains on high intensity statin, does not take aspirin anymore at this time
- With his advanced dementia and comorbidities, no utility to resuming aspirin
- Consider outpatient follow-up if within GOC
#CAD s/p PCI
- Patient no longer on antiplatelet therapy, remains on high intensity statin
- No complaints of chest pains or other signs of ACS at this time
- Continue on telemetry for now
#BPH
- Monitor for urine retention
#Lewy body dementia
- Monitor for agitation or hallucinations
Diet: IDDSI 6
Thromboprophylaxis: SCDs
CODE STATUS: DNR/DNI
Disposition: Medically stable for discharge to SNF when bed available and insurance approved
Anticipated Discharge: Today
Subjective/Interval History
-
Date of Service: September 10, 2025
Seen and examined at the bedside. No acute events reported overnight. AFVSS this morning
Patient at baseline mental status, no agitation though having conversation about [employer] and 'some Eastern men that love dogs'
ROS limited by dementia
Objective Data
-
Vital Signs:
Vital Signs
Temp Pulse Resp BP Pulse Ox
97.8 F 74 18 170/88 94
09/10/25 07:45 09/10/25 07:45 09/10/25 07:45 09/10/25 07:45 09/10/25 07:45
I&O
09/09/25 09/10/25 09/11/25
06:59 06:59 06:59
Intake Total 480 / 480 960 / 960
Output Total 500 / 500
Balance -20 / -20 960 / 960
Review of Systems
-
Unable to obtain full review of systems at this time due to: Dementia
Physical Exam
-
General: Well Developed, Well Nourished and No Apparent Distress
HEENT: Normocephalic, Atraumatic, Moist Mucous Membranes and Anicteric
Respiratory: Clear to Auscultation and Non Labored Respirations; Negative Accessory Resp Muscle Use
Cardiac: Regular Rhythm and S1/S2; Negative Murmur, Rub or Gallop
GI: Soft, Nontender, Nondistended and Normal Bowel Sounds
Musculoskeletal: No Clubbing, No Cyanosis and No Edema
Skin: Warm and Dry; Negative Rash
Neuro: Awake, Alert, Nonfocal/Grossly Intact and Central Nerve's Intact; Negative Oriented or Tremors
Psych: Calm
--- NOTE | 2025-09-10 10:44 | CM ---
Addendum entered by Patti Walsh 09/10/25 15:50:
CM reviewed with [facility], awaiting to hear from SW at SNF if any male beds available.
Addendum entered by Patti Walsh 09/10/25 12:59:
Patient and seen bedside, another call placed to [facility]- DON reviewing referral now and will let CM know.
agreeable to additional referral to [facility], [facility], and [facility]- placed in [facility].
Patient will need ambulance transport once SNF found.
Original Note:
CM reviewed chart, patient stable for d/c.
Referrals placed to [facility], [facility], [facility].
CM spoke with [facility], closed today, if patient still here tomorrow, will review.
CM spoke with Yisel from [facility]- requesting clinicals faxed to [phone] for review.
CM will continue to follow for all d/c planning needs.
Plan; [facility] to review for STR
[2025-09-10 12:19] VITALS: BP 153/80
[2025-09-10 12:43] VITALS: BP 153/85; BP 96/61; PULSE 74; O2SAT 94
[2025-09-10 15:28] VITALS: BP 148/84
[2025-09-10] MEDS: LIPITOR 40 MG PO (16:26)
[2025-09-10] MEDS: MIRALAX 17 GRAMS PO (16:26)
[2025-09-10] MEDS: ARICEPT 10 MG PO (19:48)
[2025-09-10] MEDS: AUGMENTIN 875 MG/125 MG 1 TABLET PO (19:48)
[2025-09-10] MEDS: SENOKOT-S 1 TABLET PO (19:48)
[2025-09-10] MEDS: ROCEPHIN 1000 MG IV (21:39)
[2025-09-10] MEDS: STERILE WATER FOR INJECTION 10 ML IV (21:39)
[2025-09-10 23:26] VITALS: BP 151/79
[2025-09-11 07:45] VITALS: BP 159/84
--- NOTE | 2025-09-11 08:05 | W.PN.HOSP.TC ---
Today's Communication/Plan
-
Plan discharge to SNF tomorrow
Assessment / Plan
Assessment / Plan
#New seizure
- Likely provoked in the context of UTI and advanced dementia
- Decision made against starting empiric AED regimen upon admission
- EEG was performed and did not show any signs of status epilepticus
- Discussed with neurology, very likely related to UTI, hold off on neuro consult for now
- Will check MRI brain without contrast, consider neurology consult based off of result
- Continue with seizure precautions, as needed benzodiazepines
#Urinary tract infection
- Started on ceftriaxone following urine culture in the ED
- Continue empiric ceftriaxone, follow culture and narrow ABX as able
- Urine culture with contaminant, no species identified
- Plan for Augmentin to complete 7-day course at discharge
- Trend CBC and temperature curve
#Bilateral carotid stenosis
- CTA head and neck showed R >L carotid ASCVD without hemodynamically significant obstruction
- Patient remains on high intensity statin, does not take aspirin anymore at this time
- With his advanced dementia and comorbidities, no utility to resuming aspirin
- Consider outpatient follow-up if within GOC
#CAD s/p PCI
- Patient no longer on antiplatelet therapy, remains on high intensity statin
- No complaints of chest pains or other signs of ACS at this time
- Continue on telemetry for now
#BPH
- Monitor for urine retention
#Lewy body dementia
- Monitor for agitation or hallucinations
Diet: IDDSI 6
Thromboprophylaxis: SCDs
CODE STATUS: DNR/DNI
Disposition: Discharged to [facility] tomorrow, 09/12
Anticipated Discharge: Within 24 hours
Subjective/Interval History
-
Date of Service: September 11, 2025
Seen and examined at the bedside. No acute events reported overnight. AFVSS this morning
Patient remains very calm and appropriate. Intermittent confusion though no signs of agitation or aggressive behavior
ROS limited by dementia though denies any complaints
Objective Data
-
Vital Signs:
Vital Signs
Temp Pulse Resp BP Pulse Ox
97.9 F 64 16 151/79 94
09/10/25 23:26 09/10/25 23:26 09/10/25 23:26 09/10/25 23:26 09/10/25 23:26
I&O
09/10/25 09/11/25 09/12/25
06:59 06:59 06:59
Intake Total 960 / 960 780 / 780
Balance 960 / 960 780 / 780
Review of Systems
-
Unable to obtain full review of systems at this time due to: Dementia
Physical Exam
-
General: Well Developed, Well Nourished and No Apparent Distress
HEENT: Normocephalic, Atraumatic, Moist Mucous Membranes and Anicteric
Respiratory: Clear to Auscultation and Non Labored Respirations; Negative Accessory Resp Muscle Use
Cardiac: Regular Rhythm and S1/S2; Negative Murmur, Rub or Gallop
GI: Soft, Nontender, Nondistended and Normal Bowel Sounds
Musculoskeletal: No Clubbing, No Cyanosis and No Edema
Skin: Warm and Dry; Negative Rash
Neuro: Awake, Alert, Oriented, Nonfocal/Grossly Intact and Central Nerve's Intact; Negative Tremors
Psych: Calm
[2025-09-11] MEDS: PROSCAR 5 MG PO (09:56)
[2025-09-11] MEDS: CELEXA 20 MG PO (09:56)
[2025-09-11] MEDS: NAMENDA 10 MG PO ×2 (09:56→19:38)
[2025-09-11] MEDS: AUGMENTIN 875 MG/125 MG 1 TABLET PO ×2 (09:57→19:38)
[2025-09-11] MEDS: PROTONIX 40 MG PO (09:57)
[2025-09-11] MEDS: SENOKOT-S 1 TABLET PO ×2 (09:57→19:38)
--- NOTE | 2025-09-11 12:54 | CM ---
CM reviewed chart, reviewed with Hospitalist. Report:
CM spoke with Admissions at [facility], able to accept patient tomorrow.
CM spoke with , Afua, aware of plan for d/c tomorrow to [facility].
IMM verbally reviewed, agreeable to d/c plan, placed in chart.
[facility] requesting early transport for tomorrow if possible.
Plan; [facility] SNF tomorrow, 09/12, will require ambulance transport
[facility]
Report: [phone]
[2025-09-11 15:18] VITALS: BP 113/66
[2025-09-11] MEDS: LIPITOR 40 MG PO (17:53)
[2025-09-11] MEDS: ARICEPT 10 MG PO (19:38)
[2025-09-11] MEDS: STERILE WATER FOR INJECTION IV (21:52)
[2025-09-11 23:00] VITALS: BP 150/81
[2025-09-12 07:45] VITALS: BP 146/88
--- NOTE | 2025-09-12 08:25 | W.PN.HOSP.TC ---
Today's Communication/Plan
-
Discharge
Assessment / Plan
Assessment / Plan
#New seizure
- Likely provoked in the context of UTI and advanced dementia
- Decision made against starting empiric AED regimen upon admission
- EEG was performed and did not show any signs of status epilepticus
- Discussed with neurology, very likely related to UTI, hold off on neuro consult for now
- Will check MRI brain without contrast, consider neurology consult based off of result
- Continue with seizure precautions, as needed benzodiazepines
#Urinary tract infection
- Started on ceftriaxone following urine culture in the ED
- Continue empiric ceftriaxone, follow culture and narrow ABX as able
- Urine culture with contaminant, no species identified
- Plan for Augmentin to complete 7-day course at discharge
- Trend CBC and temperature curve
#Bilateral carotid stenosis
- CTA head and neck showed R >L carotid ASCVD without hemodynamically significant obstruction
- Patient remains on high intensity statin, does not take aspirin anymore at this time
- With his advanced dementia and comorbidities, no utility to resuming aspirin
- Consider outpatient follow-up if within GOC
#CAD s/p PCI
- Patient no longer on antiplatelet therapy, remains on high intensity statin
- No complaints of chest pains or other signs of ACS at this time
- Continue on telemetry for now
#BPH
- Monitor for urine retention
#Lewy body dementia
- Monitor for agitation or hallucinations
Diet: IDDSI 6
Thromboprophylaxis: SCDs
CODE STATUS: DNR/DNI
Disposition: Discharge to [facility]
Anticipated Discharge: Today
Subjective/Interval History
-
Date of Service: September 12, 2025
Seen and examined at bedside. No acute events reported overnight. AFVSS this morning
Remains calm and appropriate with intermittently confused conversation
ROS limited by dementia
Objective Data
-
Vital Signs:
Vital Signs
Temp Pulse Resp BP Pulse Ox
98.0 F 79 18 150/81 100
09/11/25 23:00 09/11/25 23:00 09/11/25 23:00 09/11/25 23:00 09/11/25 23:00
I&O
09/11/25 09/12/25 09/13/25
06:59 06:59 06:59
Intake Total 780 / 780 480 / 480
Balance 780 / 780 480 / 480
Review of Systems
-
Unable to obtain full review of systems at this time due to: Dementia
Physical Exam
-
General: Well Developed, Well Nourished and No Apparent Distress
HEENT: Normocephalic, Atraumatic and Moist Mucous Membranes
Respiratory: Clear to Auscultation and Non Labored Respirations
Cardiac: Regular Rhythm and S1/S2; Negative Murmur, Rub or Gallop
GI: Soft, Nontender, Nondistended and Normal Bowel Sounds
Musculoskeletal: No Clubbing, No Cyanosis and No Edema
Skin: Warm and Dry; Negative Rash
Neuro: Awake, Alert, Oriented, Nonfocal/Grossly Intact and Central Nerve's Intact; Negative Tremors
Psych: Calm
[2025-09-12 09:10] VITALS: BP 143/90; PULSE 77; O2SAT 94
[2025-09-12 09:21] VITALS: BP 143/90; PULSE 75; O2SAT 93
[2025-09-12] MEDS: AUGMENTIN 875 MG/125 MG 1 TABLET PO (09:34)
[2025-09-12] MEDS: CELEXA 20 MG PO (09:34)
[2025-09-12] MEDS: NAMENDA 10 MG PO (09:34)
[2025-09-12] MEDS: PROTONIX 40 MG PO (09:34)
[2025-09-12] MEDS: PROSCAR 5 MG PO (09:35)
[2025-09-12] MEDS: SENOKOT-S 1 TABLET PO (09:35)
--- NOTE | 2025-09-12 10:16 | CM ---
CM reviewed chart, patient seen in chair.
Plan for d.c today to [facility], 12:30 p.m. ambulance transport.
Updates to liaison at [facility].
Afua updated via phone.
Plan; d/c to [facility], 12:30 p.m. ambulance transport
[facility]
Report: [phone]
--- NOTE | 2025-09-12 12:36 | W.DCSUMMARY ---
Discharge Summary
Discharge Data
Date of Admission: 09/07/25
Date of Discharge: 09/12/25
Total time spent discharging patient (in min): 35
-
Pending Results: No
Hospital Course
Discharging physician: Jah Vasquez DO
Discharge disposition: SNF
Primary discharge diagnoses:
First seizure recurrence
UTI/cystitis
Lewy body dementia
Chronic discharge diagnoses:
CAD s/p PCI
Hypertension
Dyslipidemia
BPH
Hospital course:
85-year-old male that presented to the hospital with seizure that was witnessed in the ED. Diagnosed with urinary tract infection. Had CT head that was unremarkable and ultimately MRI and EEG that both were unremarkable for signs of strokes,
hemorrhage, seizure foci. Case was reviewed by neurology who felt seizures were induced in the context of his urinary tract infection and chronic dementia with Lewy bodies. Decision was made against empiric antiepileptic therapy. Was treated with
IV ceftriaxone for his UTI. Urine culture ultimately came back with contamination. Patient had clinical improvement with no recurrence of seizure activity and improved mentation throughout hospital stay. Was transition to Augmentin empirically to
complete 7 days total of antibiotics. Was evaluated by physical therapy in the hospital and recommended for SNF placement.
Pertinent imaging findings:
CT head without contrast (09/06/2025)
IMPRESSION: No evidence of acute intracranial abnormality
CTA head and neck (09/06/2025):
IMPRESSION: Calcific atherosclerotic disease of the carotid bulbs and proximal internal carotid arteries, right greater than left. No CT angiographic evidence for hemodynamically significant stenosis. No significant narrowing of the vertebral or
basilar arteries. Calcification of the cavernous internal carotid arteries bilaterally, and could approach 50% diameter reduction. No significant narrowing of the anterior cerebral or middle cerebral arteries. No significant narrowing of the
posterior cerebral arteries.
MRI brain without contrast (09/08/2025)
FINDINGS: There is no abnormal signal intensity on diffusion imaging to suggest acute infarct. Moderate chronic microvascular white matter ischemic disease within the subcortical, deep, and periventricular white matter as well as the sherrie. No focal
mass, mass effect, midline shift, or extra-axial collection. No hydrocephalus. Global atrophy. Mild paranasal sinus mucosal thickening. Mastoid air cells are essentially clear. Normal flow-voids in the vascular structures at skull base.
EEG (09/07/2025)
Impression: No evidence of status epilepticus
Procedures: N/A
Follow-up:
Wound family doctor within 1 week
Referral provided for outpatient neurology
Discharge Plan
-
Patient Disposition: Correction/SNF
Discharge Diagnosis/Procedures: Urinary tract infection
Seizure due to UTI and dementia
Nonobstructive carotid stenosis
Condition: Fair
Diet: Other diet
Additional Diets: IDDSI 6, soft and bite-size
Activity: As tolerated
Driving Restrictions: No driving
Bathing Restrictions: None
Blood Work: Repeat BMP and CBC with family doctor
Other Services: PT
Referrals:
Johny Grider MD [Active, Neurology] - in one to two weeks
Johny Fernandez MD [Family Provider, Internal Medicine]
Additional Discharge Medication Instructions: Continue Augmentin 875-125 mg every 12 hours through the end of 09/12/2025
Prescriptions:
New
amoxicillin-pot clavulanate 875-125 mg tablet
1 tab PO Q12H 4 Days Qty: 8 0RF
sennosides-docusate sodium [Senna Plus] 8.6-50 mg Tablet
1 tab PO BID Qty: 30 0RF
Continued
atorvastatin 40 MG tablet
40 mg PO HS
ascorbic acid (vitamin C) [Vitamin C] 1,000 MG tablet
1,000 mg PO BID
memantine 10 MG tablet
10 mg PO BID
cholecalciferol (vitamin D3) 2,000 UNITS tablet
2,000 units PO DAILY
multivitamin Tablet
1 tab PO DAILY
zinc acetate 50 mg (zinc) Capsule
50 mg PO DAILY
acetaminophen [Tylenol] 325 mg Tablet
650 mg PO Q6H PRN (Reason: fever, mild pain)
donepezil 10 mg Tablet
10 mg PO DAILY
cetirizine [Aller-Yvonne] 10 mg Tablet
10 mg PO DAILY
citalopram [Celexa] 20 mg Tablet
20 mg PO DAILY
finasteride 5 mg Tablet
5 mg PO DAILY
pantoprazole 40 mg Tablet,Delayed Release (Dr/Ec)
40 mg PO DAILY Qty: 0 0RF
Discharge Orders:
Discharge Patient (As Directed); Ordered 09/12/25
Ordered By: Jah Vasquez
Discharge Date and Time
Discharge Date/Time: 09/12/25 12:31
Print Language: BURKINAN
[2025-09-12 12:44] VITALS: BP 143/90; PULSE 77; O2SAT 94
== END 2025-09-12 12:31 | DRG 690 ==
LOC: 4 WEST ACU 14:03
PROVIDERS: Physician Assistant; Physician Assistant Medical; ADMITTING PHYSICIAN Internal Medicine; ATTENDING PHYSICIAN Internal Medicine; EMERGENCY PHYSICIAN Emergency Medicine; FAMILY PHYSICIAN Internal Medicine
DX: N30.90 Cystitis, unspecified without hematuria (principal); F02.83 Dementia in other diseases classified elsewhere, unspecified severity, with mood disturbance; Z66 Do not resuscitate; Z87.891 Personal history of nicotine dependence; I25.10 Atherosclerotic heart disease of native coronary artery without angina pectoris; Z95.5 Presence of coronary angioplasty implant and graft; F32.A Depression, unspecified; G31.83 Neurocognitive disorder with Lewy bodies; I65.23 Occlusion and stenosis of bilateral carotid arteries; I10 Essential (primary) hypertension; R56.9 Unspecified convulsions
CPT/HCPCS: 51701; 70450; 70496; 70498; 70551; 71045; 80048; 80053; 81003; 81015; 84484; 85025; 85027; 85610; 85730; 87086; 92610; 93005; 96374; 97116; 97163; 97167; 97530; 97535; 99285; Q9967

== ENCOUNTER → 2025-09-17 10:31 | Outpatient (REF) | payer MEDICARE, BC, SELFPAY ==
[2025-09-17 12:03] LABS: Hematocrit 48.2 % (39.0-52.0); Hemoglobin 15.5 g/dL (13.0-18.0); Mean Corp Hgb Conc. 32.2 g/dL (33.0-37.0); Mean Corpuscular Volume 100.2 fL (80.0-94.0); Nucleated Red Blood Cells % 0 % (-); Platelet Count 199 10^3/uL (130-400); Red Cell Dist. Width 13.8 % (11.5-14.5)
[2025-09-17 12:25] LABS: Blood Urea Nitrogen 24 mg/dl (9-20); Calcium 9.2 mg/dl (8.4-10.2); Carbon Dioxide 30 mmol/L (22-30); Chloride 105 mmol/L (98-107); Glucose 85 mg/dl (70-99); Potassium 4.5 mmol/L (3.5-5.1); Sodium 138 mmol/L (135-145); eGFR > 60.00
== END ==
LOC: OLABN 10:31
PROVIDERS: ATTENDING PHYSICIAN Student in an Organized Health Care Education/Training Program
DX: I10 Essential (primary) hypertension (principal); I95.1 Orthostatic hypotension
CPT/HCPCS: 36415; 80048; 85025

== ENCOUNTER 2025-10-12 17:10 | Observation (INO) | payer MEDICARE, BC, SELFPAY ==
[2025-10-12] VITALS (7 sets, daily range): BP systolic 135–171; BP diastolic 69–110; PULSE 67; O2SAT 95; BMI 26.2; BMI 25.1
[2025-10-12] MEDS: ADACEL 0.5 ML IM (08:55)
--- NOTE | 2025-10-12 09:05 | ED.GENMED ---
History of Present Illness
<Jeramy Jones DO - Last Filed: 10/12/25 14:11>
General
Chief Complaint: Fall
Source: patient and records
Exam Limitations: none
Time Seen by Provider: 10/12/25 08:35
Nursing documentation reviewed up to this point in time: agreed with
History of Present Illness
History of Present Illness:
85-year-old male after a fall reaching for his walker getting out of bed struck his head has a laceration on top of his head he is in a cervical collar he has low back pain he is awake alert and oriented, no blood thinners no chest pain or shortness
of breath no palpitations
Past History
<Jeramy Jones DO - Last Filed: 10/12/25 14:11>
Past History
ED Past Medical History: CAD, HTN, Hypercholesterolemia and Other (Bowel obstruction, Sensory Tremors)
ED Past Surgical History: Appendectomy and Cardiac (Cardiac stents)
Social History
Tobacco: Former smoker
Alcohol: None
Drug: None
Personal:
Living: with family
Employment: Employed
Phy Exam
<DO Abbey Brownlee Last Filed: 10/12/25 14:11>
Physical Exam
Physical Exam:
Physical Exam
General: Elderly male cooperative
Neck: No posterior neck pain no tongue bite
Heart: s1/s2 regular rate and rhythm, no murmur. equal radial pulses.
Lungs: no acute respiratory distress. clear bilaterally
Abdomen: Nontender
Neuro: alert and oriented. Able to lift his arms off the bed without difficulty has pain with lifting his legs off the bed
Skin: 3 cm stellate laceration top of the head
Psychiatric: cooperative
Extremities: No overt signs of extremity trauma
Course
<Jeramy Jones DO - Last Filed: 10/12/25 14:11>
Orders/Labs/Results
Orders:
Orders
10/12/25 08:41
Lumbar Spine, 2 or 3 View [CR Lumbar Spine 2 Or 3 Views] Urgent
Comment:
Reason For Exam: fall pain
10/12/25 08:42
CT Cervical Spine W/o Iv Contr Urgent
Comment:
Reason For Exam: fall
CT Head W/o Iv Contrast Urgent
Comment:
Reason For Exam: fall
Tetanus/Diphth/Acelpertussis [Adacel] 0.5 ml IM .ONCE ONE
10/12/25 09:35
Thoracic Spine 3 Views CR [CR Thoracic Spine 3 Views] Urgent
Comment:
Reason For Exam: pain
10/12/25 11:04
Acetaminophen [Tylenol] 1,000 mg PO NOW STA
10/12/25 11:51
Physical Therapy Consult [Pt Eval And Treat] Urgent
Activity Level: Ambulate
10/12/25 12:28
Case Management Consult ONCE
Case Management Consult: Discharge Planning
10/12/25 12:35
Complete Blood Count/With Diff Urgent
Comprehensive Metabolic Panel Urgent
10/12/25 13:44
Urinalysis Reflex To Culture Urgent
Date Specimen was Collected: 10/12/25
Time Specimen was Collected: 13:43
Urine Microscopic Reflex Cult Urgent
10/12/25 15:00
Citalopram [Celexa] 20 mg PO DAILY
Finasteride [Proscar] 5 mg PO DAILY
10/12/25 18:00
Atorvastatin [Lipitor] 40 mg PO QPM
10/12/25 20:00
Memantine HCl [Namenda] 10 mg PO BID
10/12/25 22:00
Donepezil HCl [Aricept] 10 mg PO HS
Abnormal Lab Results
10/12/25 10/12/25
12:35 13:44
WBC 14.1 H 10^3/uL
(4.8-10.8)
MCV 94.5 H fL
(80.0-94.0)
MCH 31.8 H pg
(27.0-31.0)
Abs Immat Gran (auto) 0.1 H 10^3/uL
(0-0.05)
Absolute Neuts (auto) 12.2 H 10^3/uL
(1.4-6.5)
Absolute Lymphs (auto) 1.0 L 10^3/uL
(1.2-3.4)
Absolute Monos (auto) 0.8 H 10^3/uL
(0.1-0.6)
Immature Gran % 0.6 H %
(0-0.5)
Neutrophils % 86.3 H %
(42.2-75.2)
Lymphocytes % 7.2 L %
(20.5-51.1)
Glucose 145 H mg/dl
(70-99)
Urine Ketones 2+ A
(Negative)
Urine RBC 16-20 A /HPF
(0-2)
Urine Bacteria (Reflex) Few A
(Negative)
Urine Albumin (Reflex) 2+ A
(Neg - Trace)
10/12/25 12:35
10/12/25 12:35
Vital Signs
Initial and Last Documented VS:
Initial Vital Signs
Temp
98.0 F
10/12/25 08:36
Last Documented Vital Signs
Temp Pulse Resp BP Pulse Ox
98.0 F 66 16 135/81 97
10/12/25 08:42 10/12/25 08:42 10/12/25 08:42 10/12/25 08:42 10/12/25 09:05
<Zoe Crowe MD, Resident - Last Filed: 10/12/25 14:48>
Orders/Labs/Results
Orders:
Orders
10/12/25 08:41
Lumbar Spine, 2 or 3 View [CR Lumbar Spine 2 Or 3 Views] Urgent
Comment:
Reason For Exam: fall pain
10/12/25 08:42
CT Cervical Spine W/o Iv Contr Urgent
Comment:
Reason For Exam: fall
CT Head W/o Iv Contrast Urgent
Comment:
Reason For Exam: fall
Tetanus/Diphth/Acelpertussis [Adacel] 0.5 ml IM .ONCE ONE
10/12/25 09:35
Thoracic Spine 3 Views CR [CR Thoracic Spine 3 Views] Urgent
Comment:
Reason For Exam: pain
10/12/25 11:04
Acetaminophen [Tylenol] 1,000 mg PO NOW STA
10/12/25 11:51
Physical Therapy Consult [Pt Eval And Treat] Urgent
Activity Level: Ambulate
10/12/25 12:28
Case Management Consult ONCE
Case Management Consult: Discharge Planning
10/12/25 12:35
Complete Blood Count/With Diff Urgent
Comprehensive Metabolic Panel Urgent
10/12/25 13:44
Urinalysis Reflex To Culture Urgent
Date Specimen was Collected: 10/12/25
Time Specimen was Collected: 13:43
Urine Microscopic Reflex Cult Urgent
10/12/25 15:00
Citalopram [Celexa] 20 mg PO DAILY
Finasteride [Proscar] 5 mg PO DAILY
10/12/25 18:00
Atorvastatin [Lipitor] 40 mg PO QPM
10/12/25 20:00
Memantine HCl [Namenda] 10 mg PO BID
10/12/25 22:00
Donepezil HCl [Aricept] 10 mg PO HS
Abnormal Lab Results
10/12/25 10/12/25
12:35 13:44
WBC 14.1 H 10^3/uL
(4.8-10.8)
MCV 94.5 H fL
(80.0-94.0)
MCH 31.8 H pg
(27.0-31.0)
Abs Immat Gran (auto) 0.1 H 10^3/uL
(0-0.05)
Absolute Neuts (auto) 12.2 H 10^3/uL
(1.4-6.5)
Absolute Lymphs (auto) 1.0 L 10^3/uL
(1.2-3.4)
Absolute Monos (auto) 0.8 H 10^3/uL
(0.1-0.6)
Immature Gran % 0.6 H %
(0-0.5)
Neutrophils % 86.3 H %
(42.2-75.2)
Lymphocytes % 7.2 L %
(20.5-51.1)
Glucose 145 H mg/dl
(70-99)
Urine Ketones 2+ A
(Negative)
Urine RBC 16-20 A /HPF
(0-2)
Urine Bacteria (Reflex) Few A
(Negative)
Urine Albumin (Reflex) 2+ A
(Neg - Trace)
10/12/25 12:35
10/12/25 12:35
Vital Signs
Initial and Last Documented VS:
Initial Vital Signs
Temp
98.0 F
10/12/25 08:36
Last Documented Vital Signs
Temp Pulse Resp BP Pulse Ox
98.0 F 66 16 135/81 97
10/12/25 08:42 10/12/25 08:42 10/12/25 08:42 10/12/25 08:42 10/12/25 09:05
Procedures
<Zoe Crowe MD, Resident - Last Filed: 10/12/25 14:48>
Laceration Closure
Posterior Parietal:
Status of Wound: clean
Size of Wound in cm: 3
Description of Wound Edges: macerated
Preparation: cleaned with saline
Anesthesia: 1% Lidocaine with epi
Revision/Debridement: routine- no revision
Type of Closure: other (Steri stripes )
<Jeramy Jones DO - Last Filed: 10/12/25 14:11>
MDM/Problems Addressed
Differential Diagnosis Includes:
Fall C-spine injury closed head injury low back pain low back injury laceration
MDM/Problems Addressed:
Fall
Chronic conditions affecting care: Neurological disorder
Acute Exacerbation and/or Progression of Chronic Illness: Neurological disorder
<Jeramy Jones DO - Last Filed: 10/12/25 14:11>
*Radiology
Radiology exam reviewed: radiology read reviewed
*Pulse Oximetry
SaO2: 97
Oxygen Mode of Delivery: Room air
Patient hypoxic: no
*Critical Care Note
Total Time (30-74mins, 75-104mins- exclusive of procedures): Not Applicable
<Jeramy Jones DO - Last Filed: 10/12/25 14:11>
Update Note
Update Note:
11:45 AM update imaging reports noted will ask PT to evaluate the patient for safety etc.
Seen by PT, recommend placement rehab message sent to case management will check labs and urine
2 PM reviewed with case management excepted initial MET tomorrow to 8 AM she recommends keeping him in the ER
ED Attending Note
<Jeramy Jones DO - Last Filed: 10/12/25 14:11>
-
Portions of this chart may have been created with voice recognition software.� Occasional wrong word or��sound alike� substitutions may have occurred due to the inherent limitations of voice recognition software.
Discharge Plan
Departure
Patient Disposition: Acute Rehab Facility
Date of Disposition: 10/12/25
Time of Disposition: 14:15
Patient with high blood pressure during this ER visit?: No
Condition: Good
Discharge Problem:
Fall
Prescriptions:
No Action
atorvastatin 40 MG tablet
40 mg PO HS
ascorbic acid (vitamin C) [Vitamin C] 1,000 MG tablet
1,000 mg PO BID
memantine 10 MG tablet
10 mg PO BID
cholecalciferol (vitamin D3) 2,000 UNITS tablet
2,000 units PO DAILY
zinc acetate 50 mg (zinc) Capsule
50 mg PO DAILY
donepezil 10 mg Tablet
10 mg PO DAILY
citalopram [Celexa] 20 mg Tablet
20 mg PO DAILY
finasteride 5 mg Tablet
5 mg PO DAILY
pantoprazole 40 mg Tablet,Delayed Release (Dr/Ec)
40 mg PO DAILY Qty: 0 0RF
docusate sodium [Colace] 100 mg Capsule
100 mg PO HS
Referrals:
Johny Fernandez MD [Family Provider, Internal Medicine]
Interventions
Interventions:
*Risk Screen - Suicide Last Done: 10/12/25 08:36
*General Assessment Last Done: 10/12/25 08:36
*Neglect/Abuse Screening Last Done: 10/12/25 08:36
*ED- Fall Risk Assessment Last Done: 10/12/25 08:36
*ED COVID-19 Vaccine History Last Done: 10/12/25 08:36
*ED Influenza Vaccine History Last Done: 10/12/25 08:36
ED-Musculoskeletal Assessment Last Done: 10/12/25 08:41
ED- Neurological Assessment Last Done: 10/12/25 08:36
ED-Skin Assessment Last Done: 10/12/25 08:41
Discharge Date and Time
Print Language: PORTUGUESE
[2025-10-12] MEDS: TYLENOL 1000 MG PO (11:39)
[2025-10-12 12:49] LABS: Hematocrit 46.6 % (39.0-52.0); Hemoglobin 15.7 g/dL (13.0-18.0); Mean Corp Hgb Conc. 33.7 g/dL (33.0-37.0); Mean Corpuscular Volume 94.5 fL (80.0-94.0); Nucleated Red Blood Cells % 0 % (-); Platelet Count 162 10^3/uL (130-400); Red Cell Dist. Width 13.7 % (11.5-14.5)
[2025-10-12 13:04] LABS: ALT (SGPT) 28 U/L (0-50); AST (SGOT) 27 U/L (17-59); Albumin 4.2 g/dl (3.5-5.0); Alkaline Phosphatase 86 U/L (38-126); Blood Urea Nitrogen 15 mg/dl (9-20); Calcium 9.4 mg/dl (8.4-10.2); Carbon Dioxide 28 mmol/L (22-30); Chloride 105 mmol/L (98-107); Estimated Creatinine Clearance 55 ml/min; Glucose 145 mg/dl (70-99); Potassium 4.9 mmol/L (3.5-5.1); Sodium 140 mmol/L (135-145); Total Protein 7.1 g/dl (6.3-8.2); eGFR > 60.00
--- NOTE | 2025-10-12 13:35 | CM ---
Addendum entered by Genie Bergeron 10/12/25 14:02:
Patient accepted to [facility] for admission in am 10/12/25. Patient very happy for transition. Per liaison; please call [phone]. Ambulance pending for 9am cook pickled meat tomorrow. Ambulance form completed and given to deputy united states marshal.
Plan; transfer to SNF tomorrow am via ambulance
Addendum entered by Genie Bergeron 10/12/25 13:38:
Patient resides with his in a single story home, two steps to enter.
Patient was ambulatory with a RW, prior to admission to today patient was recently discharged from [facility].
Patient has been to [facility] SNF in past.
aware therapy recommending SNF- [facility].
Patient PCP is Johny Fernandez, Patient uses the Pharmacy [facility] in [place]. Pending response from [facility].
Original Note:
Patient seen at bedside in ED. Patient states that patient recently discharged from [facility] and therapy is recommending SNF. Patient requested referral to [facility], CM sent referral and spoke with Liaison at [facility]. Awaiting response. CM will
continue to follow for discharge planning needs.
Plan; pending SNF response.
[2025-10-12 14:05] LABS: Urine Character Clear (Clear)
[2025-10-12 14:19] LABS: Urine Urothelial Cell 0-2 /LPF (FEW)
[2025-10-12 14:20] LABS: Urine White Cell 0-2 /HPF (0-5)
[2025-10-12 14:21] LABS: Urine Red Blood Cell 16-20 /HPF (0-2)
--- NOTE | 2025-10-12 15:29 | HPS.HSE ---
Addendum entered and electronically signed by Gayathri Lockwood MD 10/12/25 16:06:
I have seen and examined the patient. I have reviewed the case with the [employer] or PA's I agree with the H&P as documented below.
85M with CAD/HTN, recent admission last month for seizure/UTI p/w mechanical fall. He slipped while walking, no LOC, prodromal symptoms, no seizure activity. Sustained laceration on head but no SIMON.
On exam, head laceration not activly bleeding, steristips in place. EOMI/PERRLA, AA+Ox3, no obvious neuro deficits. Heart RRR/Lungs CTAB, abd soft/NT/ND/NABS, no LE edema.
Reviewed imaging, no spinal fractures, no intracranial abnormalities.
Leukocytosis, suspected reactive. Repeat CBC in AM. No e/o UTI on UA. No s/s resp issues or cardiac issues.
Am dysfunction/mechanical fall/head lac:
local wound care.
Seen by PT/OT with rec for SNF.
CM consulted, placement at [facility], plan for transfer in AM.
Original Note:
Family Physician
-
Family Physician: Johny Fernandez
Chief Complaint
-
fall
History of Present Illness
85-year-old male with past medical history of CAD, hypertension, hypercholesterolemia, bowel obstruction presented to has status post fall.he was reaching for his walker getting out of bed. slid off the bed and struck his head on the dresser. he
has a laceration on top of his head. Patient denies any headache, dizzy or syncope. Patient denied any fever, chills, chest pain, short of breath. Patient denied any abdominal pain, nausea, vomiting or diarrhea. Patient denied dysuria,
hematuria.
Admitting for further management
Medical History
Past Medical History
Past Medical History: Reports Other
Additional Past Medical History:
Hyperlipidemia, tremors, hypertension, diverticulosis, obstruction, coronary artery disease
Past Surgical History: Reports Other
Additional Past Surgical History:
Cardiac stent, appendectomy, cervical fusion
Social History
Tobacco: Non-smoker
Alcohol: None
Drug: None
Personal:
Living: With Family
Family History
Family History: Not pertinent
Allergies / Home Medications
Allergies reflects when Allergies were last updated in [facility].
Home Medications with original date entered in [facility]
Allergy/Medication List:
Allergies
Allergy/AdvReac Type Severity Reaction Status Date / Time
venom-honey bee (bee venom Allergy Swelling Verified 10/12/25 08:38
(honey bee))
venom-wasp Allergy SWELLING-YELLOW Verified 10/12/25 08:38
JACKETS
ONLY
Home Medications
ascorbic acid (vitamin C) 1,000 mg tablet (Vitamin C) 1,000 mg PO BID Supplement 05/15/22
atorvastatin 40 mg tablet 40 mg PO HS High cholesterol 05/15/22
cholecalciferol (vitamin D3) 50 mcg (2,000 unit) tablet 2,000 units PO DAILY Supplement 05/15/22
memantine 10 mg tablet 10 mg PO BID dementia 05/15/22
zinc acetate 50 mg (zinc) capsule 50 mg PO DAILY Supplement 01/27/23
donepezil 10 mg tablet 10 mg PO DAILY dementia 01/01/24
citalopram 20 mg tablet (Celexa) 20 mg PO DAILY depression/anxiety 01/24/24
finasteride 5 mg tablet 5 mg PO DAILY Urinary Issue 01/24/24
docusate sodium 100 mg capsule (Colace) 100 mg PO HS Constipation 10/12/25
pantoprazole 40 mg tablet,delayed release 40 mg PO DAILY Gastrointestinal Issue 10/12/25
Review of Systems
-
Constitutional: Reports No Symptoms
EENT: Reports No Symptoms
Respiratory: Reports No Symptoms
Cardiac: Reports No Symptoms
Abdomen/GI: Reports No Symptoms
: Reports No Symptoms
Musculoskeletal: Reports No Symptoms
Skin: Reports No Symptoms
Neurological: Reports No Symptoms
Endocrine: Reports No Symptoms
Hematologic/Lymphatic: Reports No Symptoms
Psych: Reports No Symptoms
Physical Exam
Vital Signs
Vital Signs
Temp Pulse Resp BP Pulse Ox
98.0 F 85 16 149/76 92
10/12/25 08:42 10/12/25 15:10 10/12/25 15:10 10/12/25 15:10 10/12/25 15:10
Physical Exam
General: Well Developed, Well Nourished and No Apparent Distress
HEENT: NormoCephalic, Moist mucous membranes and Atraumatic
Respiratory: Clear
Cardiac: S1/S2 and Regular Rhythm; No Murmur or Rub
GI: Soft, Non Tender, Non Distended and Normal Bowel Sounds; No Organomegaly
Rectal: Deferred by Provider
Musculoskeletal: No Clubbing, No Cyanosis and No Edema
Skin: Rash and Other (Laceration on the top of the head)
Neuro: AO x 3 and Nonfocal/grossly intact
Psych: Calm
Laboratory Results
-
10/12/25 12:35
10/12/25 12:35
Laboratory Results
Total Bilirubin 1.3 mg/dl (0.2-1.3) 10/12/25 12:35
AST 27 U/L (17-59) 10/12/25 12:35
ALT 28 U/L (0-50) 10/12/25 12:35
Alkaline Phosphatase 86 U/L (38-126) 10/12/25 12:35
Data Reviewed
-
Diagnostic Radiology: Report Reviewed by me
CT Scan: Report Reviewed by me
Lab Data: Labs Reviewed by me
Impression/Plan
-
# Mechanical fall
- Thoracic spine x-ray with no acute findings
- Head CT revealed no acute findings
- Cervical spine CT with no acute findings
- Lumbar x-ray with no acute findings
- PT/OT consulted
- Case management following for SNF placement
# Leukocytosis likely reactive
- WBCs 14.1, patient is afebrile
# History of seizure
# Coronary artery disease
# Bilateral carotid stenosis
# Cardiac stent
- Statin continued
# BPH
- Finasteride continue
# Lewy body dementia
# Depression anxiety
- Citalopram continued
- Aricept, Namenda continued
# GERD
- Pantoprazole continue
# DVT prophylaxis
- Lovenox
# CODE STATUS
- full code
[2025-10-12] MEDS: PROSCAR 5 MG PO (15:46)
[2025-10-12] MEDS: CELEXA 20 MG PO (16:57)
--- NOTE | 2025-10-12 18:17 | PTCARENOTE ---
Received pt from ED via stretcher. Pt pulled over to bed with assist x4. AAOx2-3, forgetful, hx dementia. JAMUL. Drowsy. C/o pain in neck. Bed alarm placed and plugged in. Skin assessed, unable to orient to room, confused @ x's. Will provide report to
nightshift RN.
[2025-10-12] MEDS: NAMENDA 10 MG PO (19:25)
[2025-10-12] MEDS: ZINC 50 MG PO (19:25)
[2025-10-12] MEDS: DESENEX/MITRAZOL/ZEASORB 1 APPLIC TOPICAL (19:25)
[2025-10-12] MEDS: LOVENOX 40 MG SC (19:25)
[2025-10-13 07:00] VITALS: BP 172/89
[2025-10-13] MEDS: PROTONIX 40 MG PO (07:41)
[2025-10-13] MEDS: NAMENDA 10 MG PO (07:42)
[2025-10-13] MEDS: TYLENOL 650 MG PO (07:42)
[2025-10-13] MEDS: CELEXA 20 MG PO (07:42)
[2025-10-13] MEDS: VITAMIN D3 (cholecalciferol) 50 MCG PO (07:42)
[2025-10-13] MEDS: PROSCAR 5 MG PO (07:42)
[2025-10-13] MEDS: ARICEPT 10 MG PO (07:42)
[2025-10-13] MEDS: DESENEX/MITRAZOL/ZEASORB 1 APPLIC TOPICAL (07:43)
[2025-10-13 08:05] LABS: Hematocrit 42.6 % (39.0-52.0); Hemoglobin 14.1 g/dL (13.0-18.0); Mean Corp Hgb Conc. 33.1 g/dL (33.0-37.0); Mean Corpuscular Volume 99.3 fL (80.0-94.0); Platelet Count 150 10^3/uL (130-400); Red Cell Dist. Width 14.0 % (11.5-14.5)
[2025-10-13 08:26] LABS: Blood Urea Nitrogen 20 mg/dl (9-20); Calcium 9.1 mg/dl (8.4-10.2); Carbon Dioxide 28 mmol/L (22-30); Chloride 103 mmol/L (98-107); Estimated Creatinine Clearance 55 ml/min; Glucose 96 mg/dl (70-99); Potassium 4.2 mmol/L (3.5-5.1); Sodium 140 mmol/L (135-145); eGFR > 60.00
--- NOTE | 2025-10-13 09:31 | CM ---
Addendum entered by Alis Salcedo RN 10/13/25 09:49:
Explained JARVIS letter to . All questions answered. will met pt at [facility] .
dc patient .
Original Note:
Spoke with Mick from [facility] . PT accepted back to [facility]ene[facility] this am.
Medical nec form completed.
LM with Arlene .
[facility]
report [phone]
fax [phone]
PLAN To [facility] this am
[2025-10-13 09:46] VITALS: BP 169/90
--- NOTE | 2025-10-13 09:48 | W.DCSUMMARY ---
Discharge Summary
Discharge Data
Date of Admission: 10/12/25
Date of Discharge: 10/13/25
Total time spent discharging patient (in min): 51
-
Pending Results: No
Hospital Course
Discharge diagnosis
1. Fall with head laceration
Diagnosis present before admit:
1. CAD
2. essential HTN (poorly controlled)
3. Hypercholesterolemia
4. Bowel obstruction
Initial presentation and hospital course by problem:
85-year-old male with past medical history of CAD, hypertension, hypercholesterolemia, bowel obstruction presented to has status post fall. He was reaching for his walker getting out of bed. slid off the bed and struck his head on the dresser. he
has a laceration on top of his head. Patient denied any headache, dizzy or syncope. Patient denied any fever, chills, chest pain, short of breath. Patient denied any abdominal pain, nausea, vomiting or diarrhea. Patient denied dysuria,
hematuria. He did well overnight and feels that he is at his baseline this am.
1. Mechanical fall
Thoracic spine x-ray with no acute findings
Head CT revealed no acute findings
Cervical spine CT with no acute findings
Lumbar x-ray with no acute findings
PT/OT consulted
Case management followed for SNF placement and he has a bed this am.
2. Leukocytosis likely reactive
WBCs initially 14.1, patient is afebrile. This am it was 11.4.
This is unlikely to be an infection. Outpatient follow up.
3. History of seizure - this does not appear to have been a seizure per the provided history.
4. Coronary artery disease - chronic, complicated by:
Bilateral carotid stenosis
Cardiac stent
Statin continued
This mendez not appear to have been a cardiac event
5. BPH - chronic, Finasteride continue
6. Lewy body dementia, patient comfortable and not agitated
7. Depression & anxiety - patient appears to be in stable mood.
Citalopram continued
Aricept, Namenda continued
8. GERD - chronic
Pantoprazole continue
9. Essential HTN - not on any HTN meds, with systolic readings in the 150s, 160s (manual)
Given overall health status not using BP meds may be reasonable, but this needs an outpatient evaluation.
No symptoms of HTN urgency or emergency at this time.
DVT prophylaxis while in hospital was Lovenox
CODE STATUS during hospitalization was full code
Exam on day of discharge:
General: Well Developed, Well Nourished and No Apparent Distress
HEENT: NormoCephalic, Moist mucous membranes
Respiratory: Clear
Cardiac: S1/S2 and Regular Rhythm; No Murmur or Rub
GI: Soft, Non Tender, Non Distended
Musculoskeletal: No Clubbing, No Cyanosis and No Edema
Skin: Rash and Other (Laceration on the top of the head)
Neuro: Nonfocal/grossly intact
Psych: Calm
Discharge Plan
-
Patient Disposition: Senior Living/SNF
Discharge Diagnosis/Procedures: Fall with laceration
Diet: As tolerated
Activity: With assistance and As tolerated
Driving Restrictions: As prior to admission
Bathing Restrictions: After dressing removed
Other Services: PT
Referrals:
Johny Fernandez MD [Family Provider, Internal Medicine]
Prescriptions:
Continued
atorvastatin 40 MG tablet
40 mg PO HS
ascorbic acid (vitamin C) [Vitamin C] 1,000 MG tablet
1,000 mg PO BID
memantine 10 MG tablet
10 mg PO BID
cholecalciferol (vitamin D3) 2,000 UNITS tablet
2,000 units PO DAILY
zinc acetate 50 mg (zinc) Capsule
50 mg PO DAILY
donepezil 10 mg Tablet
10 mg PO DAILY
citalopram [Celexa] 20 mg Tablet
20 mg PO DAILY
finasteride 5 mg Tablet
5 mg PO DAILY
docusate sodium [Colace] 100 mg Capsule
100 mg PO HS
pantoprazole 40 mg tablet,delayed release (DR/EC)
40 mg PO DAILY
Discharge Orders:
Discharge Patient (As Directed); Ordered 10/13/25
Ordered By: Sarbjit Mary
Discharge Date and Time
Print Language: GREENLANDIC
== END 2025-10-13 10:29 ==
LOC: 3 WEST ACU 17:10
PROVIDERS: Registered Nurse; ADMITTING PHYSICIAN Internal Medicine; ATTENDING PHYSICIAN Internal Medicine; EMERGENCY PHYSICIAN Emergency Medicine; FAMILY PHYSICIAN Internal Medicine
DX: S01.01XA Laceration without foreign body of scalp, initial encounter (principal); I25.10 Atherosclerotic heart disease of native coronary artery without angina pectoris; I10 Essential (primary) hypertension; E78.00 Pure hypercholesterolemia, unspecified; W06.XXXA Fall from bed, initial encounter; K56.609 Unspecified intestinal obstruction, unspecified as to partial versus complete obstruction; I65.23 Occlusion and stenosis of bilateral carotid arteries; K21.9 Gastro-esophageal reflux disease without esophagitis; G31.83 Neurocognitive disorder with Lewy bodies; D72.829 Elevated white blood cell count, unspecified; F41.9 Anxiety disorder, unspecified; F32.A Depression, unspecified; N40.0 Benign prostatic hyperplasia without lower urinary tract symptoms; Z79.899 Other long term (current) drug therapy; Z87.891 Personal history of nicotine dependence
CPT/HCPCS: 12002; 70450; 72072; 72100; 72125; 80048; 80053; 81003; 81015; 85025; 85027; 87070; 90471; 90715; 99285; G0378

== ENCOUNTER → 2025-10-23 09:29 | Outpatient (REF) | payer OTHER, MEDICARE, BC, SELFPAY ==
[2025-10-23 12:13] LABS: Hematocrit 40.4 % (39.0-52.0); Hemoglobin 13.2 g/dL (13.0-18.0); Mean Corp Hgb Conc. 32.7 g/dL (33.0-37.0); Mean Corpuscular Volume 97.1 fL (80.0-94.0); Nucleated Red Blood Cells % 0 % (-); Platelet Count 332 10^3/uL (130-400); Red Cell Dist. Width 13.5 % (11.5-14.5)
[2025-10-23 12:38] LABS: Blood Urea Nitrogen 27 mg/dl (9-20); Calcium 9.2 mg/dl (8.4-10.2); Carbon Dioxide 32 mmol/L (22-30); Chloride 105 mmol/L (98-107); Glucose 112 mg/dl (70-99); Potassium 4.6 mmol/L (3.5-5.1); Sodium 140 mmol/L (135-145); eGFR > 60.00
== END ==
LOC: OLABN 09:29
PROVIDERS: ATTENDING PHYSICIAN Student in an Organized Health Care Education/Training Program
DX: R05.9 Cough, unspecified (principal); R09.02 Hypoxemia
CPT/HCPCS: 36415; 80048; 85025

== ENCOUNTER → 2025-10-23 20:00 | Outpatient (REF) | payer OTHER, MEDICARE, BC, SELFPAY ==
[2025-10-24 10:44] LABS: Urine Character Clear (Clear)
[2025-10-24 11:26] LABS: Urine Squamous Cell 0-2 /LPF (Few)
[2025-10-24 11:31] LABS: Urine Red Blood Cell 16-20 /HPF (0-2); Urine White Cell 26-30 /HPF (0-5)
== END ==
LOC: OLABN 20:00
PROVIDERS: ATTENDING PHYSICIAN Student in an Organized Health Care Education/Training Program
DX: R44.3 Hallucinations, unspecified (principal); N39.0 Urinary tract infection, site not specified
CPT/HCPCS: 81003; 81015; 87077; 87086

== ENCOUNTER → 2025-10-29 11:35 | Outpatient (REF) | payer OTHER, MEDICARE, BC, SELFPAY ==
[2025-10-29 12:33] LABS: Hematocrit 42.2 % (39.0-52.0); Hemoglobin 13.8 g/dL (13.0-18.0); Mean Corp Hgb Conc. 32.7 g/dL (33.0-37.0); Mean Corpuscular Volume 97.7 fL (80.0-94.0); Nucleated Red Blood Cells % 0 % (-); Platelet Count 403 10^3/uL (130-400); Red Cell Dist. Width 13.6 % (11.5-14.5)
== END ==
LOC: OLABN 11:35
PROVIDERS: ATTENDING PHYSICIAN Student in an Organized Health Care Education/Training Program
DX: D72.829 Elevated white blood cell count, unspecified (principal)
CPT/HCPCS: 36415; 85025